=== PATIENT | male | born 1955 | race Two or more races ===

== ENCOUNTER 2019-03-12 10:20 | Outpatient (CLI) | payer MEDICARE ==
--- NOTE | 2019-03-12 12:32 | Ultrasound Report ---
Reason: CHRONIC BILATERAL LEG PAIN, EDEMA, OPEN WOUNDS, RL Procedure Date: 03/12/2019 Accession Number: [id number] / [id number] Procedure: US - Duplex Lwr Ext Arterial Bilat CPT Code: FULL RESULT: EXAM: Bilateral Lower Extremity Arterial Doppler Ultrasound EXAM DATE: 03/12/2019 11:14 AM. CLINICAL HISTORY: CHRONIC BILATERAL LEG PAIN, EDEMA, OPEN WOUNDS, RL. COMPARISON: None. TECHNIQUE: Real-time sonographic vascular imaging was performed by the aluminum boats assembler, utilizing color-flow, Doppler flow, and spectral analysis. Multiple premium service representative static images were saved for review. FINDINGS: The right common femoral artery, superficial femoral artery sampled at 3 stations, profunda femoris artery, popliteal artery, anterior tibial artery, posterior tibial artery and peroneal, as well as dorsalis pedis arteries, are all patent by color Doppler and demonstrate brisk systolic arterial upstroke on spectral duplex interrogation. The right lower extremity common femoral artery, profunda femoris artery as well as SFA sampled at 3 stations are all patent by color Doppler and demonstrate brisk arterial upstroke on spectral duplex. Below the knee, the popliteal artery, posterior tibial artery, peroneal artery and dorsalis pedis artery are all patent by color Doppler and demonstrate brisk systolic upstroke by spectral Doppler. The left anterior tibial artery is not seen. The following peak systolic velocities are obtained in centimeters per second. Right Leg: SECURITY ROVER: PSV 73.2 cm/sec. PSFA: PSV 97 cm/sec. MSFA: PSV 70 cm/sec. DSFA: PSV 53 cm/sec. PFA: PSV 64 cm/sec. POP: PSV 82 cm/sec. ISAI: PSV 65 cm/sec. SENIOR SECURITY ENGINEER: PSV 54 cm/sec. PER: PSV 81 cm/sec. DPA: PSV 50 cm/sec. Left Leg: SECURITY ROVER: PSV 98 cm/sec. PSFA: PSV 99 cm/sec. MSFA: PSV 80 cm/sec. DSFA: PSV 56 cm/sec. PFA: PSV 77 cm/sec. POP: PSV 61 cm/sec. ISAI: Not seen. SENIOR SECURITY ENGINEER: PSV 56 cm/sec. PER: PSV 68 cm/sec. DPA: PSV 40 cm/sec. Superficial soft tissue edema right greater than left. IMPRESSION: Nonvisualization of the left anterior tibial artery. Otherwise, preserved arterial flow with good inflow and vascularity to the ankles bilaterally. Note is made of marked superficial soft tissue edema bilaterally, right greater than left. RADIA
== END 2019-03-12 10:21 | disposition home or self-care (01) ==
LOC: DI 10:20
PROVIDERS: ATTEND Family Medicine
DX: M79.605 Pain in left leg (principal); M79.604 Pain in right leg; G89.29 Other chronic pain; S81.801A Unspecified open wound, right lower leg, initial encounter; R60.0 Localized edema
CPT/HCPCS: 93925

== ENCOUNTER 2021-04-14 08:47 | Outpatient (CLI) | payer MEDICARE | END 2021-04-14 13:50 | disposition EMS.NT | LOC: EMS 08:47 | DX: Z03.89 Encounter for observation for other suspected diseases and conditions ruled out (principal) ==

== ENCOUNTER 2022-09-03 17:51 | Outpatient (CLI) | payer MEDICARE | END 2022-09-03 17:52 | disposition critical access hospital (66) | LOC: EMS 17:51 | DX: R53.1 Weakness (principal); R53.83 Other fatigue; R06.02 Shortness of breath; R10.9 Unspecified abdominal pain; R41.82 Altered mental status, unspecified | CPT/HCPCS: A0425; A0429 ==

== ENCOUNTER 2022-09-03 18:16 | Inpatient (IN) | payer MEDICARE ==
[2022-09-03 19:05] LABS: BASOPHILS # (AUTO) 0.1 10^3/uL (0.0-0.1); BASOPHILS % (AUTO) 0.6 %; EOSINOPHILS # (AUTO) 0.1 10^3/uL (0.0-0.7); EOSINOPHILS % (AUTO) 1.4 %; HCT - HEMATOCRIT 33.8 % (42.0-52.0); HGB - HEMOGLOBIN 11.3 g/dL (14.0-18.0); LYMPHOCYTES # (AUTO) 0.7 10^3/uL (1.5-3.5); LYMPHOCYTES % (AUTO) 7.7 %; MEAN CORPUSCULAR HEMOGLOBIN 30.7 pg (27.0-31.0); MEAN CORPUSCULAR HGB CONC 33.4 g/dL (32.0-36.0); MEAN CORPUSCULAR VOLUME 91.8 fL (80.0-94.0); MEAN PLATELET VOLUME 8.6 fL (7.4-11.4); MONOCYTES # (AUTO) 0.6 10^3/uL (0.0-1.0); MONOCYTES % (AUTO) 6.2 %; NEUTROPHILS % (AUTO) 83.6 %; PLT - PLATELET COUNT 433 10^3/uL (130-450); RED BLOOD COUNT 3.68 10^6/uL (4.70-6.10); RED CELL DISTRIBUTION WIDTH 13.5 % (12.0-15.0); WHITE BLOOD COUNT 9.5 x10^3/uL (4.8-10.8)
[2022-09-03 19:08] LABS: INR 1.3 (0.8-1.2); PT - PROTHROMBIN TIME 13.8 secs (9.9-12.6)
[2022-09-03 19:16] LABS: PARTIAL THROMBOPLASTIN TIME 34.6 secs (24.9-33.3)
[2022-09-03 19:17] LABS: ALBUMIN 2.2 g/dL (3.2-5.5); ALBUMIN/GLOBULIN RATIO 0.7 (1.0-2.2); BILIRUBIN,TOTAL 0.8 mg/dL (0.2-1.0); CALCIUM 7.9 mg/dL (8.5-10.3); CREATININE 0.6 mg/dL (0.6-1.2); POTASSIUM 4.2 mmol/L (3.5-5.0); TOTAL PROTEIN 5.4 g/dL (6.7-8.2)
[2022-09-03 19:18] LABS: LACTIC ACID, VENOUS 2.2 mmol/L (0.5-2.2)
--- NOTE | 2022-09-03 19:54 | XRAY Report ---
PROCEDURE: Chest 1 View X-Ray INDICATIONS: cough TECHNIQUE: One view of the chest was acquired. COMPARISON: Chest radiograph 07/20/2022 FINDINGS: Surgical changes and devices: None. Lungs and pleura: No pleural effusions or pneumothorax. Lungs are clear. Mediastinum: Cardiac silhouette is at the upper limits of normal in size. Mediastinal and hilar cont ours are similar to before. Bones and chest wall: No suspicious bony lesions. Overlying soft tissues appear unremarkable. IMPRESSION: No acute cardiopulmonary abnormality. Reviewed by: Chepe Hinds MD on 09/03/2022 7:53 PM PDT Approved by: Chepe Hinds MD on 09/03/2022 7:53 PM PDT Station ID: [id number]
[2022-09-03 19:55] LABS: B. PARAPERTUSSIS- RESP PCR PAN NOT DETECTED; B. PERTUSSIS- RESP PCR PANEL NOT DETECTED; C. PNEUMONIAE- RESP PCR PANEL NOT DETECTED; CORONAVIRUS 229E-RESP PCR NOT DETECTED; CORONAVIRUS HKU1-RESP PCR NOT DETECTED; CORONAVIRUS NL63-RESP PCR NOT DETECTED; CORONAVIRUS OC43-RESP PCR NOT DETECTED; HUMAN METAPNEUMOVIRUS NOT DETECTED; INFLUENZA A- RESP PCR PANEL NOT DETECTED; INFLUENZA B - RESP PCR PANEL NOT DETECTED; M. PNEUMONIAE- RESP PCR PANEL NOT DETECTED; PARAINFLUENZA VIRUS 1 NOT DETECTED; PARAINFLUENZA VIRUS 2 NOT DETECTED; PARAINFLUENZA VIRUS 3 NOT DETECTED; PARAINFLUENZA VIRUS 4 NOT DETECTED; RHINOVIRUS/ENTEROVIRUS NOT DETECTED; RSV- RESP PCR PANEL NOT DETECTED; SARS-CoV-2 -RESP PCR PANEL NOT DETECTED
[2022-09-03 19:59] LABS: GLUCOSE, URINE (UA) NEGATIVE (NEGATIVE); KETONES,URINE (UA) TRACE mg/dL (NEGATIVE); LEUKOCYTE ESTERASE, URINE TRACE (NEGATIVE); NITRITE,URINE POSITIVE (NEGATIVE); OCCULT BLOOD,URINE NEGATIVE (NEGATIVE); PROTEIN,URINE 30 mg/dL (NEGATIVE); UROBILINOGEN,URINE 0.2 (NORMAL) E.U./dL (NORMAL)
[2022-09-03 20:00] LABS: CLARITY,URINE HAZY (CLEAR)
[2022-09-03 20:09] LABS: BACTERIA,URINE Many /HPF (None Seen); BILIRUBIN,URINE NEGATIVE (NEGATIVE); CASTS, URINE 6-10 Hyaline Casts /LPF; ICTOTEST,URINE NEGATIVE; MUCUS,URINE Moderate Strands; RBC,URINE 0-5 /HPF (0-5); SQUAMOUS EPITHELIAL CELL,UR RARE Squamous (<= Few)
[2022-09-03 20:09] LABS: CALCIUM, IONIZED 1.02 mmol/L (1.15-1.33); VBG PH 7.419 (7.31-7.41)
[2022-09-03] MEDS ORDERED: cefTRIAXone 1 GM VIAL IVP STA (20:33)
[2022-09-03] MEDS ORDERED: SODIUM CHLORIDE 0.9% 1,000 ML IV STA ×3 (20:34→20:56)
--- NOTE | 2022-09-03 20:36 | ED Physician Documentation ---
History of Present Illness - Stated complaint Stated Complaint: DIFFICULTY BREATHING - Chief complaint Chief Complaint: Neuro - History obtained from History obtained from: Patient - History of Present Illness Timing: How many days ago Pain level max: 5 Pain level now: 4 - Additonal information Additional information: Patient is a 67-year-old male who presents to the emergency department with generalized weakness. He was recently admitted to the hospital here for several weeks and sent to a halfway. He reportedly left the halfway yesterday and has fallen 3-4 times at home today. Unable to get up by himself. He has been having increased weakness he states over the past several days. No new head injuries. No neck or back pain. He states that he was feeling better in the halfway but has declined over the past 24 hours. States unable to get up on his own. Patient is [place]-speaking and an agricultural research technician was used for the history and physical Review of Systems Ten Systems: 10 systems reviewed and negative Constitutional: denies: Fever, Chills Respiratory: denies: Cough GI: denies: Vomiting, Diarrhea Skin: denies: Rash Musculoskeletal: denies: Neck pain, Back pain Neurologic: denies: Headache PD PAST MEDICAL HISTORY - Past Medical History Cardiovascular: Hypertension, High cholesterol, Coronary artery disease, Other Respiratory: None Neuro: None Endocrine/Autoimmune: None GI: GERD, Hiatal hernia, Diverticulitis, Other : Retention HEENT: None Psych: None Musculoskeletal: Other Derm: None - Past Surgical History Past Surgical History: Yes General: Bowel surgery, Hiatal hernia repair Ortho: Knee replacement - Present Medications Home Medications: Ambulatory Orders Medication Instructions Recorded Confirmed Aspirin [Aspirin EC] 81 mg PO DAILY 10/21/14 07/11/22 Clopidogrel [Plavix] 75 mg PO DAILY 10/21/14 07/11/22 Diclofenac Sodium [Voltaren 2 gm TP Q6H PRN 07/04/22 07/11/22 Arthritis Pain] Famotidine [Pepcid] 40 mg PO BID 07/04/22 07/11/22 Acetaminophen [Tylenol] 325 mg PO Q4H PRN tablet 07/30/22 Atorvastatin [Lipitor] 10 mg PO QPM #0 07/30/22 07/11/22 Calcium Carbonate [Tums (Calcium 500 mg PO BID tablet 07/30/22 Carbonate 500mg)] Cholecalciferol [Vitamin D3] 50 mcg PO DAILY tablet 07/30/22 Finasteride [Proscar] 5 mg PO DAILY tablet 07/30/22 Folic Acid 1 mg PO DAILY #0 07/30/22 07/11/22 Ibuprofen [Motrin] 600 mg PO Q6HR PRN tablet 07/30/22 Loperamide [Imodium] 2 mg PO QID PRN 07/30/22 Midodrine [ProAmatine] 5 mg PO TID tablet 07/30/22 Multivitamin [Theragran] 1 tab PO DAILYWM tablet 07/30/22 Ranolazine [Ranexa] 500 mg PO DAILY #0 07/30/22 07/11/22 Zinc Oxide 20% Oint [Zinc Oxide] 1 applic TOP PRN PRN 07/30/22 diltiaZEM CD [Cardizem Cd] 120 mg PO DAILY 07/30/22 oxyCODONE [Roxicodone] 10 mg PO Q4H #30 tablet 07/30/22 traZODone [Desyrel] 25 mg PO QPM tablet 07/30/22 - Allergies Allergies/Adverse Reactions: Allergies Allergy/AdvReac Type Severity Reaction Status Date / Time acetaminophen [From Vicodin] AdvReac Unknown Verified 09/03/22 18:19 hydrocodone bitartrate * AdvReac Unknown Verified 09/03/22 18:19 [From Vicodin] iron AdvReac Unknown Verified 09/03/22 18:19 - Social History Does the pt smoke?: No Smoking Status: Never smoker Does the pt drink ETOH?: No Does the pt have substance abuse?: No - Immunizations Immunizations are current?: Yes - POLST Patient has POLST: No PD ED PE NORMAL - Vitals Vital signs reviewed: Yes - General General: No acute distress, Other (Patient is cool to the touch. Drowsy but arousable.) - HEENT HEENT: PERRL, Pharynx benign, Other (dry lips and tongue) - Neck Neck: Supple, no meningeal sign - Cardiac Cardiac: RRR - Respiratory Respiratory: No respiratory distress, Clear bilaterally - Abdomen Abdomen: Soft, Non tender, Non distended - Derm Derm: Warm and dry - Extremities Extremities: Other (Has a pressure ulcer to the left heel. Also has multiple wounds to the bilateral lower extremity. Do not appear actively infected at this time) - Neuro Neuro: card runner 2-12 intact, No motor deficit, No sensory deficit, Normal speech Eye Opening: Spontaneous Motor: Obeys Commands Verbal: Oriented GCS Score: 15 - Psych Psych: Normal mood, Normal affect Results - Vitals Vitals: Vital Signs - 24 hr 09/03/22 09/03/22 09/03/22 18:20 18:53 19:23 Temperature 36.9 C Heart Rate 95 96 97 Respiratory 20 16 16 Rate Blood Pressure 111/89 H 106/74 101/74 O2 Saturation 100 94 99 09/03/22 09/03/22 09/03/22 20:00 20:30 20:55 Temperature Heart Rate 90 83 85 Respiratory 15 17 16 Rate Blood Pressure 93/78 79/61 L 104/75 O2 Saturation 98 99 99 09/03/22 09/03/22 09/03/22 21:21 21:30 22:08 Temperature Heart Rate 96 94 95 Respiratory 18 16 15 Rate Blood Pressure 106/79 96/76 103/81 H O2 Saturation 100 100 Oxygen O2 Source Room air - EKG (time done) 1839 Rate: Rate (enter#) (80) Rhythm: Atrial fibrillation [place]: Normal Ischemia: Other (obscured by artifact) - Labs Labs: Laboratory Tests 09/03/22 09/03/22 09/03/22 18:44 18:55 18:55 WBC 9.5 RBC 3.68 L Hgb 11.3 L Hct 33.8 L MCV 91.8 MCH 30.7 MCHC 33.4 RDW 13.5 Plt Count 433 MPV 8.6 Neut # (Auto) 8.0 H Lymph # (Auto) 0.7 L Grady # (Auto) 0.6 Eos # (Auto) 0.1 Baso # (Auto) 0.1 Absolute Nucleated RBC 0.00 Nucleated RBC % 0.0 PT 13.8 H INR 1.3 H APTT 34.6 H VBG pH Ionized Calcium Sodium Potassium Chloride Carbon Dioxide Anion Gap BUN Creatinine Estimated GFR (MDRD) Glucose Lactic Acid Calcium Total Bilirubin AST ALT Alkaline Phosphatase Troponin I High Sens Total Protein Albumin Globulin Albumin/Globulin Ratio Lipase Procalcitonin Urine Color Urine Clarity Urine pH Ur Specific Golden Urine Protein Urine Glucose (UA) Urine Ketones Urine Occult Blood Urine Nitrite Urine Bilirubin Urine Urobilinogen Ur Leukocyte Esterase Urine RBC Urine WBC Ur Squamous Epith Cells Urine Bacteria Urine Casts Urine Mucus Ur Microscopic Review Urine Culture Comments Nasal Adenovirus (PCR) NOT DETECTED Nasal B. parapertussis DNA (PCR) NOT DETECTED Nasal Coronavir 229E PCR NOT DETECTED Nasal Coronavir HKU1 PCR NOT DETECTED Nasal Coronavir NL63 PCR NOT DETECTED Nasal Coronavir OC43 PCR NOT DETECTED Nasal Enterovir/Rhinovir PCR NOT DETECTED Nasal Influenza B PCR NOT DETECTED Nasal Influenza A PCR NOT DETECTED Nasal Parainfluen 1 PCR NOT DETECTED Nasal Parainfluen 2 PCR NOT DETECTED Nasal Parainfluen 3 PCR NOT DETECTED Nasal Parainfluen 4 PCR NOT DETECTED Nasal RSV (PCR) NOT DETECTED Nasal B.pertussis DNA PCR NOT DETECTED Nasal C.pneumoniae (PCR) NOT DETECTED Miky Human Metapneumo PCR NOT DETECTED Nasal M.pneumoniae (PCR) NOT DETECTED Nasal SARS-CoV-2 (PCR) NOT DETECTED 09/03/22 09/03/22 09/03/22 18:55 18:55 18:55 WBC RBC Hgb Hct MCV MCH MCHC RDW Plt Count MPV Neut # (Auto) Lymph # (Auto) Grady # (Auto) Eos # (Auto) Baso # (Auto) Absolute Nucleated RBC Nucleated RBC % PT INR APTT VBG pH Ionized Calcium Sodium 128 L Potassium 4.2 Chloride 95 L Carbon Dioxide 24 Anion Gap 9.0 BUN 9 Creatinine 0.6 Estimated GFR (MDRD) 134 Glucose 94 Lactic Acid 2.2 Calcium 7.9 L Total Bilirubin 0.8 AST 17 ALT 14 Alkaline Phosphatase 94 Troponin I High Sens Total Protein 5.4 L Albumin 2.2 L Globulin 3.2 Albumin/Globulin Ratio 0.7 L Lipase 20 L Procalcitonin < 0.05 Urine Color Urine Clarity Urine pH Ur Specific Golden Urine Protein Urine Glucose (UA) Urine Ketones Urine Occult Blood Urine Nitrite Urine Bilirubin Urine Urobilinogen Ur Leukocyte Esterase Urine RBC Urine WBC Ur Squamous Epith Cells Urine Bacteria Urine Casts Urine Mucus Ur Microscopic Review Urine Culture Comments Nasal Adenovirus (PCR) Nasal B. parapertussis DNA (PCR) Nasal Coronavir 229E PCR Nasal Coronavir HKU1 PCR Nasal Coronavir NL63 PCR Nasal Coronavir OC43 PCR Nasal Enterovir/Rhinovir PCR Nasal Influenza B PCR Nasal Influenza A PCR Nasal Parainfluen 1 PCR Nasal Parainfluen 2 PCR Nasal Parainfluen 3 PCR Nasal Parainfluen 4 PCR Nasal RSV (PCR) Nasal B.pertussis DNA PCR Nasal C.pneumoniae (PCR) Miky Human Metapneumo PCR Nasal M.pneumoniae (PCR) Nasal SARS-CoV-2 (PCR) 09/03/22 09/03/22 09/03/22 18:55 19:25 19:58 WBC RBC Hgb Hct MCV MCH MCHC RDW Plt Count MPV Neut # (Auto) Lymph # (Auto) Grady # (Auto) Eos # (Auto) Baso # (Auto) Absolute Nucleated RBC Nucleated RBC % PT INR APTT VBG pH 7.419 H Ionized Calcium 1.02 L Sodium Potassium Chloride Carbon Dioxide Anion Gap BUN Creatinine Estimated GFR (MDRD) Glucose Lactic Acid Calcium Total Bilirubin AST ALT Alkaline Phosphatase Troponin I High Sens 5.9 Total Protein Albumin Globulin Albumin/Globulin Ratio Lipase Procalcitonin Urine Color YELLOW Urine Clarity HAZY Urine pH 6.0 Ur Specific Golden 1.025 Urine Protein 30 H Urine Glucose (UA) NEGATIVE Urine Ketones TRACE Urine Occult Blood NEGATIVE Urine Nitrite POSITIVE H Urine Bilirubin NEGATIVE Urine Urobilinogen 0.2 (NORMAL) Ur Leukocyte Esterase TRACE H Urine RBC 0-5 Urine WBC 11-25 H Ur Squamous Epith Cells RARE Squamous Urine Bacteria Many H Urine Casts 6-10 Hyaline Casts Urine Mucus Moderate Strands Ur Microscopic Review INDICATED Urine Culture Comments INDICATED Nasal Adenovirus (PCR) Nasal B. parapertussis DNA (PCR) Nasal Coronavir 229E PCR Nasal Coronavir HKU1 PCR Nasal Coronavir NL63 PCR Nasal Coronavir OC43 PCR Nasal Enterovir/Rhinovir PCR Nasal Influenza B PCR Nasal Influenza A PCR Nasal Parainfluen 1 PCR Nasal Parainfluen 2 PCR Nasal Parainfluen 3 PCR Nasal Parainfluen 4 PCR Nasal RSV (PCR) Nasal B.pertussis DNA PCR Nasal C.pneumoniae (PCR) Miky Human Metapneumo PCR Nasal M.pneumoniae (PCR) Nasal SARS-CoV-2 (PCR) - Rads (name of study) Chest x-ray Radiology: Final report received, EMP read contemporaneously, See rad report (No acute abnormality) head Ct Radiology: Final report received, EMP read contemporaneously, See rad report (No acute abnormality) PD MEDICAL DECISION MAKING - ED course Complexity details: reviewed old records, reviewed results, re-evaluated patient, considered differential, d/w patient, d/w mining consultant ED course: Patient is a 67-year-old male who presents to the emergency department with increasing weakness at home. This appears to be a fairly acute onset per the patient. He is feeling generally unwell today. He was very chilled when he arrived in the emergency department. He does have a UTI. Also has new hyponatremia, no sodium in the past has been below 130. He also has worsening hypocalcemia, ionized calcium is down to 1.02. We will place him on antibiotics, IV fluids, replace his calcium and place him in observation. Discussed the case with the hospitalist. Hospitalist requested a head CT, this is negative. Also requested troponin. This is negative as well. Will reconsult the hospitalist. Departure - Departure Disposition: 65 [facility] DC/Xfer Clinical Impression: Weakness, Hypocalcemia, Acute hyponatremia UTI (urinary tract infection) Qualifiers: Urinary tract infection type: acute cystitis Hematuria presence: without hematuria Qualified Code(s): N30.00 - Acute cystitis without hematuria Hypotension Qualifiers: Hypotension type: unspecified hypotension type Qualified Code(s): I95.9 - Hypotension, unspecified Pressure ulcer of left heel Qualifiers: Pressure injury stage: unstageable Qualified Code(s): L89.620 - Pressure ulcer of left heel, unstageable Condition: Stable
--- NOTE | 2022-09-03 21:28 | CT Report ---
PROCEDURE: HEAD WO INDICATIONS: fall, head injury TECHNIQUE: Noncontrast 4.5 mm thick angled axial sections acquired from the foramen magnum to the vertex. For r adiation dose reduction, the following was used: automated exposure control, adjustment of mA and/or kV according to patient size. COMPARISON: 07/08/2022. FINDINGS: Image quality: Excellent. CSF spaces: There is mild cerebral volume loss with prominence of the ventricles and sulci. Basal ci sterns are patent. No extra-axial fluid collections. Brain: No intracranial hemorrhage, mass, or mass effect. House-white matter interface is preserved. T here are subcortical and periventricular white matter hypodensities consistent with mild chronic smal l vessel ischemic changes. Skull and face: Calvarium and visualized facial bones are intact, without suspicious lesions. Sinuses: Visualized sinuses and mastoids are clear. IMPRESSION: 1. No acute intracranial abnormality. Reviewed by: Rad Linder MD on 09/03/2022 9:26 PM PDT Approved by: Rad Linder MD on 09/03/2022 9:26 PM PDT Station ID: [id number]
--- NOTE | 2022-09-03 22:00 | HISTORY & PHYSICAL EXAMINATION ---
Chief Complaint - Chief Complaint Chief Complaint: weakness History of Present Illness - Admitted From Admitted From:: home - History of Present Illness HPI Comment/Other: 67 y/o M presented with falls and generalized weakness. Pt left the rehab facility yesterday after recent hospitlization for infected leg wounds. Subsequently he was feeling weak and had mechanical falls without LOC or head trauma. he denies cp, sob, palpitation or n/v/d/abd pain History - Past Medical History Cardiovascular: reports: Hypertension, High cholesterol, Coronary artery disease, Atrial fibrillation (bilateral leg wounds, ), Other Respiratory: reports: None Neuro: reports: None Endocrine/Autoimmune: reports: None GI: reports: None (rell), GERD, Hiatal hernia, Diverticulitis, Other : reports: Retention HEENT: reports: None Psych: reports: None Musculoskeletal: reports: Other Derm: reports: None MRSA Hx?: No - Past Surgical History General: reports: Bowel surgery, Hiatal hernia repair Ortho: reports: Knee replacement - Family & Social History Family History Comment/Other: Unknown, per pt. Living Situation: With spouse/s.o. Social History Notes: He does not drive, says he requires an electric wheelchair at home. He has never smoked and drinks no alcohol. - POLST Patient has POLST: No Meds/Allgy - Home Medications Home Medications: Ambulatory Orders Medication Instructions Recorded Confirmed Aspirin [Aspirin EC] 81 mg PO DAILY 10/21/14 07/11/22 Clopidogrel [Plavix] 75 mg PO DAILY 10/21/14 07/11/22 Diclofenac Sodium [Voltaren 2 gm TP Q6H PRN 07/04/22 07/11/22 Arthritis Pain] Famotidine [Pepcid] 40 mg PO BID 07/04/22 07/11/22 Acetaminophen [Tylenol] 325 mg PO Q4H PRN tablet 07/30/22 Atorvastatin [Lipitor] 10 mg PO QPM #0 07/30/22 07/11/22 Calcium Carbonate [Tums (Calcium 500 mg PO BID tablet 07/30/22 Carbonate 500mg)] Cholecalciferol [Vitamin D3] 50 mcg PO DAILY tablet 07/30/22 Finasteride [Proscar] 5 mg PO DAILY tablet 07/30/22 Folic Acid 1 mg PO DAILY #0 07/30/22 07/11/22 Ibuprofen [Motrin] 600 mg PO Q6HR PRN tablet 07/30/22 Loperamide [Imodium] 2 mg PO QID PRN 07/30/22 Midodrine [ProAmatine] 5 mg PO TID tablet 07/30/22 Multivitamin [Theragran] 1 tab PO DAILYWM tablet 07/30/22 Ranolazine [Ranexa] 500 mg PO DAILY #0 07/30/22 07/11/22 Zinc Oxide 20% Oint [Zinc Oxide] 1 applic TOP PRN PRN 07/30/22 diltiaZEM CD [Cardizem Cd] 120 mg PO DAILY 07/30/22 oxyCODONE [Roxicodone] 10 mg PO Q4H #30 tablet 07/30/22 traZODone [Desyrel] 25 mg PO QPM tablet 07/30/22 - Allergies Allergies/Adverse Reactions: Allergies Allergy/AdvReac Type Severity Reaction Status Date / Time acetaminophen [From Vicodin] AdvReac Unknown Verified 09/03/22 18:19 hydrocodone bitartrate * AdvReac Unknown Verified 09/03/22 18:19 [From Vicodin] iron AdvReac Unknown Verified 09/03/22 18:19 Review of Systems - Constitutional Constitutional: reports: Fatigue - Cardiovascular Cariovascular: reports: Irregular heart rate - Integumentary Integumentary: reports: Other (bilateral foot wounds) Exam - Vital Signs Vital Signs: Vital Signs x48h Temp Pulse Resp BP Pulse Ox 09/03/22 21:30 94 16 96/76 100 09/03/22 21:21 96 18 106/79 09/03/22 20:55 85 16 104/75 99 09/03/22 20:30 83 17 79/61 L 99 09/03/22 20:00 90 15 93/78 98 09/03/22 19:23 97 16 101/74 99 09/03/22 18:53 96 16 106/74 94 09/03/22 18:20 36.9 C 95 20 111/89 H 100 - Physical Exam General Appearance: positive: No acute distress Eyes Bilateral: positive: Normal inspection ENT: positive: ENT inspection nml Neck: positive: Nml inspection Respiratory: positive: No respiratory distress Cardiovascular: positive: Irregularly irregular Abdomen: positive: Non-tender Extremities: positive: Non-tender (healing wounds on bilateral feet no pus) Conclusion/Plan - Lab Results Lab results reviewed: Yes Fish Bones: 09/03/22 18:55 09/03/22 18:55 - Diagnostic Imaging Results Diagnostic Imaging Results Comments: head CT non acute - EKG Results EKG Findings: afib - Other Other Results/Comments: 67 y/o M #weakness and falls: could be due to hypertension and decommissioning: fall precautions and ivf and pT/OT, echo, orthostatic BPs #sepsis: ivf, antibiotics, recheck lactate #afib continue home meds, tele # hypoatremia 0.9 NS IVF, recheck #hypocalcemia: s/p replacement, recheck # leg wounds wound care # DVT PPX: SQ heparin #DNR: discussed in detail with official laboratory chemical assistant pt is adamant
[2022-09-03] MEDS ORDERED: SODIUM CHLORIDE FLUSH 0.9% 10 ML SYRINGE IVP PRN (22:14)
[2022-09-03] MEDS ORDERED: ATORVASTATIN 40 MG TABLET PO STA (22:29)
[2022-09-03] MEDS: SODIUM CHLORIDE 0.9% 1,000 ML IV SCH (22:53)
[2022-09-03] MEDS ORDERED: PIPERACILLIN/TAZOBACTAM 3.375 GM in SODIUM CHLORIDE 0.9% MINIBAG 100 ML IV SCH (23:00)
[2022-09-04] MEDS ORDERED: VANCOMYCIN INJ 1.5 GM in SODIUM CHLORIDE 0.9% 500 ML IV SCH (02:00)
[2022-09-04] MEDS: SODIUM CHLORIDE FLUSH 0.9% 10 ML SYRINGE IVP SCH ×3 (02:03→17:18)
[2022-09-04] MEDS ORDERED: PIPERACILLIN/TAZOBACTAM 3.375 GM in SODIUM CHLORIDE 0.9% 100ML 100 ML IV SCH (04:00)
[2022-09-04 07:21] LABS: CALCIUM 7.4 mg/dL (8.5-10.3); CREATININE 0.5 mg/dL (0.6-1.2); POTASSIUM 3.8 mmol/L (3.5-5.0)
[2022-09-04] MEDS: MIDODRINE 2.5 MG TABLET PO SCH ×3 (07:23→21:22)
[2022-09-04 07:26] LABS: BASOPHILS # (AUTO) 0.1 10^3/uL (0.0-0.1); BASOPHILS % (AUTO) 0.7 %; EOSINOPHILS # (AUTO) 0.2 10^3/uL (0.0-0.7); EOSINOPHILS % (AUTO) 2.2 %; HCT - HEMATOCRIT 31.4 % (42.0-52.0); HGB - HEMOGLOBIN 10.3 g/dL (14.0-18.0); LYMPHOCYTES # (AUTO) 0.9 10^3/uL (1.5-3.5); LYMPHOCYTES % (AUTO) 8.8 %; MEAN CORPUSCULAR HEMOGLOBIN 30.8 pg (27.0-31.0); MEAN CORPUSCULAR HGB CONC 32.8 g/dL (32.0-36.0); MEAN PLATELET VOLUME 8.5 fL (7.4-11.4); MONOCYTES % (AUTO) 9.6 %; NEUTROPHILS # (AUTO) 8.4 10^3/uL (1.5-6.6); NEUTROPHILS % (AUTO) 78.2 %; PLT - PLATELET COUNT 370 10^3/uL (130-450); RED BLOOD COUNT 3.34 10^6/uL (4.70-6.10); RED CELL DISTRIBUTION WIDTH 13.8 % (12.0-15.0); WHITE BLOOD COUNT 10.7 x10^3/uL (4.8-10.8)
[2022-09-04] MEDS: FAMOTIDINE 20 MG TABLET PO SCH ×3 (08:45→21:23)
[2022-09-04] MEDS: FINASTERIDE 5 MG TABLET PO SCH (08:45)
[2022-09-04] MEDS: HEPARIN 5,000 UNIT/ML VIAL SUBQ SCH ×2 (08:45→21:23)
[2022-09-04] MEDS ORDERED: ASPIRIN 325 MG TABLET PO SCH (09:00)
[2022-09-04] MEDS ORDERED: CALCIUM CARBONATE CHEW 500 MG TABLET PO SCH (09:00)
--- NOTE | 2022-09-04 10:00 | PHARMACY PROGRESS NOTE ---
- Best Possible Medication History Admit Date and Time: 09/03/222213 Processed by: Pharmacy Medication History completed: Yes Patient Interview: Pt unable to participate Secondary Source(s): Physician records, Pharmacy records, Insurance records, Previous admit records As the person ultimately responsible for medication therapy, providers are able to order a medication from an existing home medication list in [facility] via the "Reconcile Routine" prior to Confirmation of that medication by account support specialist. Such practice is discouraged except when the physician, in their clinical judgment, deems that a medical need exists for a medication without regard to previous use.
[2022-09-04] MEDS: cefTRIAXone 1 GM in SODIUM CHLORIDE 0.9% MINIBAG 100 ML IV SCH (10:16)
[2022-09-04] MEDS: SODIUM CHLORIDE 0.9% 1,000 ML IV SCH (10:16)
--- NOTE | 2022-09-04 12:39 | PROVIDER PROGRESS NOTE ---
Assessment/Plan - Problem List (1) Weakness Assessment/Plan: He was only home 1 day from the SNF in [place] and apparently "worsened quickly". Our Physical Therapist, Amairani, was able to communicate in Tajik with him directly today and learned that he slid out of his recliner at home once, not 3 times, and the could not pick him up, therefore she called 911. He was evaluated by PT today and recommendation is for a SNF, and he told the PT that he would agree to this, but not the one in [place], because they had limited Tajik speakers and communication was very suboptimal, he said. Also, after he was discharged from here in late July to that [place] SNF (where he stayed for over a month), we here had understood he would be going to a long- term care facility in [place], close to where his children live. He said this was also not the case, in fact he thought he might go to live with [facility] of his [facility], but when it came time for this, the son said he could not take care of the pt, so he was discharged to his home yesterday. PT Amairani also learned that he would never agree to live in a long-term care facility, he wants to live at home. PT told him today that he will need to have caregivers therefore. Will monitor orthostatic VS, but he can only do supine to sitting, since he has no "energy" to stand. We will resume his midodrine 3 times daily with meals. Will continue with IV fluids while treating his infection Will use PT and OT evaluations for DCh planning, communicate with SW. An Echo was ordered by the admitting telemedicine doctor last night. 2) UTI Assessment/Plan: We will cancel the empiric iv vancomycin and cefepime. We will continue iv ceftriaxone. Await urine culture and blood culture results. 3) Afib Assessment/Plan: Will continue home meds, continue telemetry 4) Hypnoatremia Assessment/Plan: Continue with0.9 NS IVF Follow BMP daily 5) Hypocalcemia Assessment/Plan: Will replace and recheck 6) Leg wounds Assessment/Plan: He has wounds of both shins and both heels. A wound care consult ordered and I spoke to Christin Muñoz myself. 7) Sepsis Assessment/Plan: This was ruled out with a normal WBC, normal Lactic Acid level, no tachycardia. Therefore he did not meet criteria for Inpatient status and was transferred to Observation status today; the Code 44 paperwork was completed. - Current Meds Current Meds: Current Medications Generic Name Dose Route Start Last Admin Trade Name Benjamin PRN Reason Stop Dose Admin Aspirin 325 mg 09/04/22 09:00 09/04/22 08:45 Aspirin 325 Mg Tablet PO 325 mg DAILY ELIECER Administration Calcium Carbonate/Glycine 500 mg 09/04/22 09:00 09/04/22 08:45 Calcium Carbonate Chew 500 Mg Tablet PO 500 mg DAILY ELIECER Administration Famotidine 20 mg 09/04/22 09:00 09/04/22 08:45 Famotidine 20 Mg Tablet PO 20 mg BID ELIECER Administration Finasteride 5 mg 09/04/22 09:00 09/04/22 08:45 Finasteride 5 Mg Tablet PO 5 mg DAILY ELIECER Administration Heparin Sodium (Porcine) 5,000 unit 09/04/22 09:00 09/04/22 08:45 Heparin 5,000 Unit/Ml Vial SUBQ 5,000 unit BID ELIECER Administration Sodium Chloride 1,000 mls @ 100 mls/hr 09/03/22 23:00 09/04/22 10:16 Normal Saline 0.9% IV 100 mls/hr .Q10H ELIECER Administration Ceftriaxone Sodium 1 gm/ 100 mls @ 200 mls/hr 09/04/22 10:30 09/04/22 11:03 Sodium Chloride IV Infused DAILY ELIECER Infusion Midodrine 5 mg 09/04/22 06:00 09/04/22 07:23 Midodrine 2.5 Mg Tablet PO 5 mg TID ELIECER Administration Sodium Chloride 10 ml 09/04/22 01:00 09/04/22 02:03 Sodium Chloride Flush 0.9% 10 Ml Syringe IVP Not Given 0100,0900,1700 ELIECER - Lab Result Fish Bone Diagrams: 09/04/22 07:06 09/04/22 07:06 - Additional Planning My Orders: My Active Orders 09/04/22 Wound Consult MAC [MAC] Routine 09/04/22 10:30 [email or web address] [Rocephin] 1 gm Sodium Chloride 0.9% Minibag [Normal Saline 0.9% Minibag] 100 ml IV DAILY 09/04/22 11:14 Daily Weight [RC] 0600 09/04/22 Lunch Soft Mechanical Diet [DIET] Subjective - Subjective Patient Reports: Other (Sleepy and feels weak) Objective Vital Signs: Vital Signs - 24 hr 09/03/22 09/03/22 09/03/22 18:20 18:53 19:23 Temperature 36.9 C Heart Rate 95 96 97 Heart Rate [ Monitoring electrodes] Heart Rate [ Sitting] Heart Rate [ Standing] Heart Rate [ Supine] Respiratory 20 16 16 Rate Blood Pressure 111/89 H 106/74 101/74 Blood Pressure [Left Brachial artery] Blood Pressure [Right Brachial artery] Blood Pressure [Sitting] Blood Pressure [Standing] Blood Pressure [Supine] O2 Saturation 100 94 99 O2 Saturation [ Supine] O2 Saturation [ Without Activity] 09/03/22 09/03/22 09/03/22 20:00 20:30 20:55 Temperature Heart Rate 90 83 85 Heart Rate [ Monitoring electrodes] Heart Rate [ Sitting] Heart Rate [ Standing] Heart Rate [ Supine] Respiratory 15 17 16 Rate Blood Pressure 93/78 79/61 L 104/75 Blood Pressure [Left Brachial artery] Blood Pressure [Right Brachial artery] Blood Pressure [Sitting] Blood Pressure [Standing] Blood Pressure [Supine] O2 Saturation 98 99 99 O2 Saturation [ Supine] O2 Saturation [ Without Activity] 09/03/22 09/03/22 09/03/22 21:21 21:30 22:08 Temperature Heart Rate 96 94 95 Heart Rate [ Monitoring electrodes] Heart Rate [ Sitting] Heart Rate [ Standing] Heart Rate [ Supine] Respiratory 18 16 15 Rate Blood Pressure 106/79 96/76 103/81 H Blood Pressure [Left Brachial artery] Blood Pressure [Right Brachial artery] Blood Pressure [Sitting] Blood Pressure [Standing] Blood Pressure [Supine] O2 Saturation 100 100 O2 Saturation [ Supine] O2 Saturation [ Without Activity] 09/03/22 09/04/22 09/04/22 22:48 07:34 10:48 Temperature 36.4 C L 37 C Heart Rate Heart Rate [ 97 82 Monitoring electrodes] Heart Rate [ 94 Sitting] Heart Rate [ 90 Standing] Heart Rate [ 69 Supine] Respiratory 16 18 Rate Blood Pressure Blood Pressure 112/63 [Left Brachial artery] Blood Pressure 94/64 [Right Brachial artery] Blood Pressure 106/76 [Sitting] Blood Pressure 107/66 [Standing] Blood Pressure 100/65 [Supine] O2 Saturation 100 95 O2 Saturation [ 95 Supine] O2 Saturation [ Without Activity] 09/04/22 11:00 Temperature Heart Rate Heart Rate [ Monitoring electrodes] Heart Rate [ 94 Sitting] Heart Rate [ 90 Standing] Heart Rate [ 65 Supine] Respiratory Rate Blood Pressure Blood Pressure [Left Brachial artery] Blood Pressure [Right Brachial artery] Blood Pressure 106/76 [Sitting] Blood Pressure 107/66 [Standing] Blood Pressure 100/65 [Supine] O2 Saturation O2 Saturation [ Supine] O2 Saturation [ 93 Without Activity] Oxygen O2 Source [Without Activity] Room air O2 Source Room air I&O (Last 24 Hrs): Intake and Output Totals x24h 09/02/22 09/03/22 09/04/22 23:59 23:59 23:59 Intake Total 1999 1300 Output Total 50 825 Balance 1950 475 General: Alert, Other (Thin elderly male) HEENT: Mucous membr. moist/pink Neck: Supple Neuro: Alert, Non Focal Cardiovascular: Other (Irreg irreg) Respiratory: No respiratory distress, Breath sounds nml Abdomen: Soft Extremities: No edema, Other (Bandages on shins and heels) - Results Results: Laboratory Results WBC 10.7 x10^3/uL (4.8-10.8) 09/04/22 07:06 RBC 3.34 10^6/uL (4.70-6.10) L 09/04/22 07:06 Hgb 10.3 g/dL (14.0-18.0) L 09/04/22 07:06 Hct 31.4 % (42.0-52.0) L 09/04/22 07:06 MCV 94.0 fL (80.0-94.0) 09/04/22 07:06 MCH 30.8 pg (27.0-31.0) 09/04/22 07:06 MCHC 32.8 g/dL (32.0-36.0) 09/04/22 07:06 RDW 13.8 % (12.0-15.0) 09/04/22 07:06 Plt Count 370 10^3/uL (130-450) 09/04/22 07:06 MPV 8.5 fL (7.4-11.4) 09/04/22 07:06 Neut # (Auto) 8.4 10^3/uL (1.5-6.6) H 09/04/22 07:06 Lymph # (Auto) 0.9 10^3/uL (1.5-3.5) L 09/04/22 07:06 [place] # (Auto) 1.0 10^3/uL (0.0-1.0) 09/04/22 07:06 Eos # (Auto) 0.2 10^3/uL (0.0-0.7) 09/04/22 07:06 Baso # (Auto) 0.1 10^3/uL (0.0-0.1) 09/04/22 07:06 Absolute Nucleated RBC 0.00 x10^3/uL 09/04/22 07:06 Nucleated RBC % 0.0 /100WBC 09/04/22 07:06 PT 13.8 secs (9.9-12.6) H 09/03/22 18:55 INR 1.3 (0.8-1.2) H 09/03/22 18:55 APTT 34.6 secs (24.9-33.3) H 09/03/22 18:55 VBG pH 7.419 (7.31-7.41) H 09/03/22 19:58 Ionized Calcium 1.02 mmol/L (1.15-1.33) L 09/03/22 19:58 Sodium 132 mmol/L (135-145) L 09/04/22 07:06 Potassium 3.8 mmol/L (3.5-5.0) 09/04/22 07:06 Chloride 101 mmol/L (101-111) 09/04/22 07:06 Carbon Dioxide 25 mmol/L (21-32) 09/04/22 07:06 Anion Gap 6.0 (6-13) 09/04/22 07:06 BUN 8 mg/dL (6-20) 09/04/22 07:06 Creatinine 0.5 mg/dL (0.6-1.2) L 09/04/22 07:06 Estimated GFR (MDRD) 165 (>89) 09/04/22 07:06 Glucose 72 mg/dL (70-100) 09/04/22 07:06 Lactic Acid 0.9 mmol/L (0.5-2.2) 09/04/22 05:50 Calcium 7.4 mg/dL (8.5-10.3) L 09/04/22 07:06 Total Bilirubin 0.8 mg/dL (0.2-1.0) 09/03/22 18:55 AST 17 IU/L (10-42) 09/03/22 18:55 ALT 14 IU/L (10-60) 09/03/22 18:55 Alkaline Phosphatase 94 IU/L (42-121) 09/03/22 18:55 Troponin I High Sens 5.9 ng/L (2.3-19.7) 09/03/22 18:55 Total Protein 5.4 g/dL (6.7-8.2) L 09/03/22 18:55 Albumin 2.2 g/dL (3.2-5.5) L 09/03/22 18:55 Globulin 3.2 g/dL (2.1-4.2) 09/03/22 18:55 Albumin/Globulin Ratio 0.7 (1.0-2.2) L 09/03/22 18:55 Lipase 20 U/L (22-51) L 09/03/22 18:55 Procalcitonin < 0.05 ng/mL (<0.5) 09/03/22 18:55 Urine Color YELLOW 09/03/22 19:25 Urine Clarity HAZY (CLEAR) 09/03/22 19:25 Urine pH 6.0 PH (5.0-7.5) 09/03/22 19:25 Ur Specific [place] 1.025 (1.002-1.030) 09/03/22 19:25 Urine Protein 30 mg/dL (NEGATIVE) H 09/03/22 19:25 Urine Glucose (UA) NEGATIVE mg/dL (NEGATIVE) 09/03/22 19:25 Urine Ketones TRACE mg/dL (NEGATIVE) 09/03/22 19:25 Urine Occult Blood NEGATIVE (NEGATIVE) 09/03/22 19:25 Urine Nitrite POSITIVE (NEGATIVE) H 09/03/22 19:25 Urine Bilirubin NEGATIVE (NEGATIVE) 09/03/22 19:25 Urine Urobilinogen 0.2 (NORMAL) E.U./dL (NORMAL) 09/03/22 19:25 Ur Leukocyte Esterase TRACE (NEGATIVE) H 09/03/22 19:25 Urine RBC 0-5 /HPF (0-5) 09/03/22 19:25 Urine WBC 11-25 /HPF (0-3) H 09/03/22 19:25 Ur Squamous Epith Cells RARE Squamous (<= Few) 09/03/22 19:25 Urine Bacteria Many /HPF (None Seen) H 09/03/22 19:25 Urine Casts 6-10 Hyaline Casts /LPF 09/03/22 19:25 Urine Mucus Moderate Strands 09/03/22 19:25 Ur Microscopic Review INDICATED 09/03/22 19:25 Urine Culture Comments INDICATED 09/03/22 19:25 Nasal Adenovirus (PCR) NOT DETECTED 09/03/22 18:44 Nasal B. parapertussis DNA (PCR) NOT DETECTED 09/03/22 18:44 Nasal Coronavir 229E PCR NOT DETECTED 09/03/22 18:44 Nasal Coronavir HKU1 PCR NOT DETECTED 09/03/22 18:44 Nasal Coronavir NL63 PCR NOT DETECTED 09/03/22 18:44 Nasal Coronavir OC43 PCR NOT DETECTED 09/03/22 18:44 Nasal Enterovir/Rhinovir PCR NOT DETECTED 09/03/22 18:44 Nasal Influenza B PCR NOT DETECTED 09/03/22 18:44 Nasal Influenza A PCR NOT DETECTED 09/03/22 18:44 Nasal Parainfluen 1 PCR NOT DETECTED 09/03/22 18:44 Nasal Parainfluen 2 PCR NOT DETECTED 09/03/22 18:44 Nasal Parainfluen 3 PCR NOT DETECTED 09/03/22 18:44 Nasal Parainfluen 4 PCR NOT DETECTED 09/03/22 18:44 Nasal RSV (PCR) NOT DETECTED 09/03/22 18:44 Nasal B.pertussis DNA PCR NOT DETECTED 09/03/22 18:44 Nasal C.pneumoniae (PCR) NOT DETECTED 09/03/22 18:44 Miky Human Metapneumo PCR NOT DETECTED 09/03/22 18:44 Nasal M.pneumoniae (PCR) NOT DETECTED 09/03/22 18:44 Nasal SARS-CoV-2 (PCR) NOT DETECTED 09/03/22 18:44 - Procedures Procedures: Procedures EXCISION OF L FOOT SUBCU/FASCIA, OPEN APPROACH (07/10/22) EXCISION OF R FOOT SUBCU/FASCIA, OPEN APPROACH (07/10/22) EXCISION OF R LOW LEG SUBCU/FASCIA, OPEN APPROACH (07/10/22)
[2022-09-04] MEDS ORDERED: VANCOMYCIN INJ 1 GM in SODIUM CHLORIDE 0.9% 250 ML IV SCH (14:00)
[2022-09-04] MEDS: oxyCODONE 5 MG TABLET PO PRN ×2 (14:58→21:23)
--- NOTE | 2022-09-04 15:01 | CT Report ---
PROCEDURE: Abdomen/Pelvis WO INDICATIONS: UTI previous bladder stranding, eval for pyelo TECHNIQUE: Noncontrast 5 mm thick sections acquired from the diaphragms to the symphysis. 5 mm coronal and sagi ttal reformats were then performed. For radiation dose reduction, the following was used: automated exposure control, adjustment of mA and/or kV according to patient size. COMPARISON: CT abdomen pelvis 07/20/2022 FINDINGS: Image quality: Excellent. ABDOMEN: Lung bases: Lung bases demonstrate mild effusion markedly decreased compared to exam. Heart size is normal. Solid organs: Liver and spleen are normal in size. Gallbladder is unremarkable Pancreas is normal in contours. No adrenal nodules. Kidneys are normal in size, without hydronephrosis or nephrolithia sis. Peritoneum and bowel: Unenhanced bowel loops demonstrate normal wall thickness and caliber. No free fluid or air. Colonic diverticular present. Nodes and vessels: No retroperitoneal or mesenteric adenopathy by size criteria. Aorta densities an eurysmal dilation within the infrarenal portion measuring 3.9 cm, unchanged. Miscellaneous: No ventral hernias. PELVIS: Genitourinary: Bladder is collapsed with a Prescott catheter. Miscellaneous: No inguinal hernias or adenopathy. Bones: No suspicious bony lesions. No vertebral body compression fractures. IMPRESSION: Bladder is collapsed with a Prescott catheter, limiting evaluation. Kidneys demonstrate no appreciable inflammatory change. However, evaluation for pyelonephritis is mar kedly limited given lack of contrast. Ultrasound may be helpful if clinical concern persists. Mild effusions decreased compared to prior exam. Reviewed by: Lisy Riddle MD on 09/04/2022 3:00 PM PDT Approved by: Lisy Riddle MD on 09/04/2022 3:00 PM PDT Station ID: [id number]
[2022-09-04] MEDS: traZODone 50 MG TABLET PO SCH (21:22)
[2022-09-04] MEDS: ATORVASTATIN 10 MG TABLET PO SCH (21:23)
[2022-09-04] MEDS: CALCIUM CARBONATE CHEW 500 MG TABLET PO SCH (21:23)
[2022-09-05] MEDS: SODIUM CHLORIDE FLUSH 0.9% 10 ML SYRINGE IVP SCH ×3 (00:02→16:59)
[2022-09-05] MEDS: SODIUM CHLORIDE 0.9% 1,000 ML IV SCH ×3 (00:02→11:48)
[2022-09-05] MEDS: oxyCODONE 5 MG TABLET PO PRN ×3 (06:50→18:07)
[2022-09-05] MEDS: MIDODRINE 2.5 MG TABLET PO SCH ×3 (06:50→21:00)
[2022-09-05] MEDS: FOLIC ACID 1 MG TABLET PO SCH (08:29)
[2022-09-05] MEDS: ASPIRIN EC 81 MG TABLET PO SCH (08:29)
[2022-09-05] MEDS: CHOLECALCIFEROL 25 MCG TABLET PO SCH (08:29)
[2022-09-05] MEDS: MULTIVITAMIN TABLET PO SCH (08:29)
[2022-09-05] MEDS: CLOPIDOGREL 75 MG TABLET PO SCH (08:29)
[2022-09-05] MEDS: FINASTERIDE 5 MG TABLET PO SCH (08:29)
[2022-09-05] MEDS: cefTRIAXone 1 GM in SODIUM CHLORIDE 0.9% MINIBAG 100 ML IV SCH (08:29)
[2022-09-05] MEDS: FAMOTIDINE 20 MG TABLET PO SCH ×2 (08:29→20:56)
[2022-09-05] MEDS: CALCIUM CARBONATE CHEW 500 MG TABLET PO SCH ×2 (08:29→20:57)
[2022-09-05] MEDS: METOPROLOL SUCCINATE 25 MG TABLET PO SCH ×2 (08:40→20:57)
[2022-09-05] MEDS: HEPARIN 5,000 UNIT/ML VIAL SUBQ SCH ×2 (08:42→20:58)
--- NOTE | 2022-09-05 08:42 | PROVIDER PROGRESS NOTE ---
Assessment/Plan - Problem List (1) Orthostatic hypotension Assessment/Plan: This patient presented after he slid out of his recliner chair at home due to severe weakness. He did not have syncope. Despite being in SNF recently for PT and OT rehab, he was very deconditioned, unable to stand after this fall at home, and his could not lift him. He was brought to the ER by ambulance and placed in Observation yesterday, due to "soft" BP. He has been receiving IV fluids, and even midodrine has been resumed, which he was on in the past. Despite our treatment, he is extremely orthostatic today: Lying: BP 114/63, HR 64. Sitting: BP105/70, HR 105. Standing: BP 104/87, HR 131. He has more than a 60 point increase in his heart rate, indicating orthostasis. He requires more care and is not ready for discharge. Will admit him to Inpatient status. We will continue with IV hydration. Continue Midodrine He was not septic from his UTI but we will continue to treat his infection with antibiotics. Will adjust doses and spread out his cardiac medications (Toprol-XL 100 mg every morning will be changed to 37.5 twice daily and adjust when blood pressure can tolerate it). An Echo was ordered by the admitting telemedicine doctor and is pending 2) Weakness Assessment/Plan: He was only home 1 day from the SNF in [place] and apparently "worsened quickly". Our Physical Therapist, Amairani, was able to communicate in Serbian with him directly yesterday and learned that he slid out of his recliner at home once, not fell 3 times, and that his could not pick him up, therefore she called 911. He was evaluated by PT yesterday and again recommendation is for a SNF, and he told the PT that he would agree to this, but not the one in [place], because they had limited Serbian speakers and communication was very suboptimal, he said. Also, after the discharge from [facility] (where he stayed for over a month), we thought he would be going to a long-term care facility in [place], close to where his children live. He told Amairani this was also not the case; he had hoped he might go to live with one of his children after SNF, but when it came time for this, the son said he could not take care of the pt, so he was discharged to his home from SNF. Our PT, Amairani, also learned that he would never agree to live in a long-term care facility, he wants to live at home. Amairani told him that he will need to have home caregivers therefore. This info was all passed on to J[facility]. Will continue to monitor orthostatic VS and treat. We have resume his midodrine 3 times daily with meals. Will continue with IV fluids while treating his infection. Will use PT and OT evaluations for [facility] planning, communicate with SW. 3) E coli UTI Assessment/Plan: He underwent abdomen and pelvis CT yesterday, which did not show strong evidence of pyelonephritis or stranding of his urinary bladder (which he did have just 2 months ago when hospitalized here). Will continued iv ceftriaxone. His urine culture results are growing E coli, and sens are available and it is sens to Cephalosporins Blood cultures are ntd. Will continue today's dose of IV ceftriaxone then switched to oral Keflex. A 14-day course is planned for good prostate penetration 4) Afib Assessment/Plan: Will continue home meds, adjusting dosing, and continue telemetry 5) Leg wounds Assessment/Plan: He has wounds of both shins and both heels. They are open and are painful. A [facility] Wound care consult was ordered and I spoke to Christin Muñoz. She saw him yesterday and will also see him for debridement if needed, she said. Her recommendations for wound care are there for our nurses. 6) Hypnoatremia Assessment/Plan: Na improved from 128 to 132 today. Continue with 0.9 NS IVF Follow BMP daily 7) Hypocalcemia Assessment/Plan: Will replace and recheck - Current Meds Current Meds: Current Medications Generic Name Dose Route Start Last Admin Trade Name Freq PRN Reason Stop Dose Admin Atorvastatin Calcium 10 mg 09/04/22 21:00 09/04/22 21:23 Atorvastatin 10 Mg Tablet PO 10 mg QPM ELIECER Administration Calcium Carbonate/Glycine 500 mg 09/04/22 21:00 09/04/22 21:23 Calcium Carbonate Chew 500 Mg Tablet PO 500 mg BID ELIECER Administration Famotidine 40 mg 09/04/22 21:00 09/04/22 21:23 Famotidine 20 Mg Tablet PO 40 mg BID ELIECER Administration Finasteride 5 mg 09/04/22 09:00 09/04/22 08:45 Finasteride 5 Mg Tablet PO 5 mg DAILY ELIECER Administration Heparin Sodium (Porcine) 5,000 unit 09/04/22 09:00 09/04/22 21:23 Heparin 5,000 Unit/Ml Vial SUBQ 5,000 unit BID ELIECER Administration Ceftriaxone Sodium 1 gm/ 100 mls @ 200 mls/hr 09/04/22 10:30 09/04/22 11:03 Sodium Chloride IV 09/05/22 23:59 Infused DAILY ELIECER Infusion Sodium Chloride 1,000 mls @ 83.33 mls/hr 09/05/22 07:32 09/05/22 08:11 Normal Saline 0.9% IV 83.33 mls/hr .Q12H1M ELIECER Administration Midodrine 5 mg 09/04/22 06:00 09/05/22 06:50 Midodrine 2.5 Mg Tablet PO 5 mg TID ELIECER Administration Oxycodone HCl 10 mg 09/04/22 14:12 09/05/22 06:50 Oxycodone 5 Mg Tablet PO 10 mg QID PRN Administration PAIN Sodium Chloride 10 ml 09/04/22 01:00 09/05/22 00:02 Sodium Chloride Flush 0.9% 10 Ml Syringe IVP Not Given 0100,0900,1700 ELIECER Trazodone HCl 25 mg 09/04/22 21:00 09/04/22 21:22 Trazodone 50 Mg Tablet PO 25 mg QPM ELIECER Administration - Lab Result Fish Bone Diagrams: 09/04/22 07:06 09/04/22 07:06 - Additional Planning My Orders: My Active Orders 09/04/22 10:30 cefTRIAXone [Rocephin] 1 gm Sodium Chloride 0.9% Minibag [Normal Saline 0.9% Minibag] 100 ml IV DAILY 09/04/22 11:14 Daily Weight [RC] 0600 09/04/22 Lunch Soft Mechanical Diet [DIET] 09/04/22 13:45 Diclofenac Sodium [Voltaren Arthritis Pain] 2 gm TP Q6H PRN 09/04/22 14:12 oxyCODONE [Roxicodone] 10 mg PO QID PRN 09/04/22 18:25 Telemetry (24 Hour) [RC] Q4HR 09/04/22 21:00 Atorvastatin [Lipitor] 10 mg PO QPM Calcium Carbonate [Tums] 500 mg PO BID Famotidine [Pepcid] 40 mg PO BID traZODone [Desyrel] 25 mg PO QPM 09/05/22 07:30 Miscellaenous Nursing Order [RC] QSHIFT 09/05/22 07:32 Sodium Chloride 0.9% [Normal Saline 0.9%] 1,000 ml IV 83.33 mls/hr 09/05/22 08:00 Multivitamin [Theragran] 1 tab PO DAILYWM 09/05/22 09:00 Aspirin EC [Ecotrin] 81 mg PO DAILY Cholecalciferol [Vitamin D3] 50 mcg PO DAILY Clopidogrel [Plavix] 75 mg PO DAILY Folic Acid 1 mg PO DAILY Metoprolol Succinate [Toprol Xl] 37.5 mg PO BID Patient Own Med [Patient Own Medication] 1 each PO DAILY 09/06/22 05:00 BMP - BASIC METABOLIC PANEL [CHEM] DAILYLAB CBC - COMP BLD CT W/AUTO DIFF [HEME] DAILYLAB 09/06/22 08:00 cephALEXin [Keflex] 500 mg PO Q6HR Subjective - Subjective Patient Reports: Feeling Better ("I am better than yesterday" he said), Resting Comfortably Nursing Reports: Other (Was able to stand to check orthostatics. Needed a lift to be put OOB into a chair.) Objective Vital Signs: Vital Signs - 24 hr 09/04/22 09/04/22 09/04/22 10:48 11:00 13:00 Temperature 36.9 C Heart Rate [ Brachial] Heart Rate [ 75 Monitoring electrodes] Heart Rate [ 94 94 Sitting] Heart Rate [ 90 90 Standing] Heart Rate [ 69 65 Supine] Respiratory 18 Rate Blood Pressure [Left Brachial artery] Blood Pressure 94/65 [Right Brachial artery] Blood Pressure 106/76 106/76 [Sitting] Blood Pressure 107/66 107/66 [Standing] Blood Pressure 100/65 100/65 [Supine] O2 Saturation 100 O2 Saturation [ 95 Supine] O2 Saturation [ 93 Without Activity] 09/04/22 09/04/22 09/05/22 15:31 20:08 00:24 Temperature 36.5 C 37.1 C 36.6 C Heart Rate [ 79 76 75 Brachial] Heart Rate [ Monitoring electrodes] Heart Rate [ Sitting] Heart Rate [ Standing] Heart Rate [ Supine] Respiratory 20 16 16 Rate Blood Pressure 110/75 118/81 H 94/63 [Left Brachial artery] Blood Pressure [Right Brachial artery] Blood Pressure [Sitting] Blood Pressure [Standing] Blood Pressure [Supine] O2 Saturation 100 100 100 O2 Saturation [ Supine] O2 Saturation [ Without Activity] 09/05/22 05:00 Temperature 36.5 C Heart Rate [ 66 Brachial] Heart Rate [ Monitoring electrodes] Heart Rate [ Sitting] Heart Rate [ Standing] Heart Rate [ Supine] Respiratory 16 Rate Blood Pressure 94/64 [Left Brachial artery] Blood Pressure [Right Brachial artery] Blood Pressure [Sitting] Blood Pressure [Standing] Blood Pressure [Supine] O2 Saturation 100 O2 Saturation [ Supine] O2 Saturation [ Without Activity] Oxygen O2 Source [Without Activity] Room air O2 Source Room air I&O (Last 24 Hrs): Intake and Output Totals x24h 09/03/22 09/04/22 09/05/22 23:59 23:59 23:59 Intake Total 1999 4150 1040 Output Total 50 1225 675 Balance 1950 2925 365 General: Alert, Oriented x3 HEENT: Mucous membr. moist/pink, Other (Pale) Neck: Supple, No JVD Neuro: Alert, Non Focal Cardiovascular: Regular rate Respiratory: No respiratory distress Abdomen: Soft Extremities: Other (Trace pretibial edema, shins and heels in bandages) - Results Results: Laboratory Results WBC 10.7 x10^3/uL (4.8-10.8) 09/04/22 07:06 RBC 3.34 10^6/uL (4.70-6.10) L 09/04/22 07:06 Hgb 10.3 g/dL (14.0-18.0) L 09/04/22 07:06 Hct 31.4 % (42.0-52.0) L 09/04/22 07:06 MCV 94.0 fL (80.0-94.0) 09/04/22 07:06 MCH 30.8 pg (27.0-31.0) 09/04/22 07:06 MCHC 32.8 g/dL (32.0-36.0) 09/04/22 07:06 RDW 13.8 % (12.0-15.0) 09/04/22 07:06 Plt Count 370 10^3/uL (130-450) 09/04/22 07:06 MPV 8.5 fL (7.4-11.4) 09/04/22 07:06 Neut # (Auto) 8.4 10^3/uL (1.5-6.6) H 09/04/22 07:06 Lymph # (Auto) 0.9 10^3/uL (1.5-3.5) L 09/04/22 07:06 [place] # (Auto) 1.0 10^3/uL (0.0-1.0) 09/04/22 07:06 Eos # (Auto) 0.2 10^3/uL (0.0-0.7) 09/04/22 07:06 Baso # (Auto) 0.1 10^3/uL (0.0-0.1) 09/04/22 07:06 Absolute Nucleated RBC 0.00 x10^3/uL 09/04/22 07:06 Nucleated RBC % 0.0 /100WBC 09/04/22 07:06 PT 13.8 secs (9.9-12.6) H 09/03/22 18:55 INR 1.3 (0.8-1.2) H 09/03/22 18:55 APTT 34.6 secs (24.9-33.3) H 09/03/22 18:55 VBG pH 7.419 (7.31-7.41) H 09/03/22 19:58 Ionized Calcium 1.02 mmol/L (1.15-1.33) L 09/03/22 19:58 Sodium 132 mmol/L (135-145) L 09/04/22 07:06 Potassium 3.8 mmol/L (3.5-5.0) 09/04/22 07:06 Chloride 101 mmol/L (101-111) 09/04/22 07:06 Carbon Dioxide 25 mmol/L (21-32) 09/04/22 07:06 Anion Gap 6.0 (6-13) 09/04/22 07:06 BUN 8 mg/dL (6-20) 09/04/22 07:06 Creatinine 0.5 mg/dL (0.6-1.2) L 09/04/22 07:06 Estimated GFR (MDRD) 165 (>89) 09/04/22 07:06 Glucose 72 mg/dL (70-100) 09/04/22 07:06 Lactic Acid 0.9 mmol/L (0.5-2.2) 09/04/22 05:50 Calcium 7.4 mg/dL (8.5-10.3) L 09/04/22 07:06 Total Bilirubin 0.8 mg/dL (0.2-1.0) 09/03/22 18:55 AST 17 IU/L (10-42) 09/03/22 18:55 ALT 14 IU/L (10-60) 09/03/22 18:55 Alkaline Phosphatase 94 IU/L (42-121) 09/03/22 18:55 Troponin I High Sens 5.9 ng/L (2.3-19.7) 09/03/22 18:55 Total Protein 5.4 g/dL (6.7-8.2) L 09/03/22 18:55 Albumin 2.2 g/dL (3.2-5.5) L 09/03/22 18:55 Globulin 3.2 g/dL (2.1-4.2) 09/03/22 18:55 Albumin/Globulin Ratio 0.7 (1.0-2.2) L 09/03/22 18:55 Lipase 20 U/L (22-51) L 09/03/22 18:55 Procalcitonin < 0.05 ng/mL (<0.5) 09/03/22 18:55 Urine Color YELLOW 09/03/22 19:25 Urine Clarity HAZY (CLEAR) 09/03/22 19:25 Urine pH 6.0 PH (5.0-7.5) 09/03/22 19:25 Ur Specific [place] 1.025 (1.002-1.030) 09/03/22 19:25 Urine Protein 30 mg/dL (NEGATIVE) H 09/03/22 19:25 Urine Glucose (UA) NEGATIVE mg/dL (NEGATIVE) 09/03/22 19:25 Urine Ketones TRACE mg/dL (NEGATIVE) 09/03/22 19:25 Urine Occult Blood NEGATIVE (NEGATIVE) 09/03/22 19:25 Urine Nitrite POSITIVE (NEGATIVE) H 09/03/22 19:25 Urine Bilirubin NEGATIVE (NEGATIVE) 09/03/22 19:25 Urine Urobilinogen 0.2 (NORMAL) E.U./dL (NORMAL) 09/03/22 19:25 Ur Leukocyte Esterase TRACE (NEGATIVE) H 09/03/22 19:25 Urine RBC 0-5 /HPF (0-5) 09/03/22 19:25 Urine WBC 11-25 /HPF (0-3) H 09/03/22 19:25 Ur Squamous Epith Cells RARE Squamous (<= Few) 09/03/22 19:25 Urine Bacteria Many /HPF (None Seen) H 09/03/22 19:25 Urine Casts 6-10 Hyaline Casts /LPF 09/03/22 19:25 Urine Mucus Moderate Strands 09/03/22 19:25 Ur Microscopic Review INDICATED 09/03/22 19:25 Urine Culture Comments INDICATED 09/03/22 19:25 Nasal Adenovirus (PCR) NOT DETECTED 09/03/22 18:44 Nasal B. parapertussis DNA (PCR) NOT DETECTED 09/03/22 18:44 Nasal Coronavir 229E PCR NOT DETECTED 09/03/22 18:44 Nasal Coronavir HKU1 PCR NOT DETECTED 09/03/22 18:44 Nasal Coronavir NL63 PCR NOT DETECTED 09/03/22 18:44 Nasal Coronavir OC43 PCR NOT DETECTED 09/03/22 18:44 Nasal Enterovir/Rhinovir PCR NOT DETECTED 09/03/22 18:44 Nasal Influenza B PCR NOT DETECTED 09/03/22 18:44 Nasal Influenza A PCR NOT DETECTED 09/03/22 18:44 Nasal Parainfluen 1 PCR NOT DETECTED 09/03/22 18:44 Nasal Parainfluen 2 PCR NOT DETECTED 09/03/22 18:44 Nasal Parainfluen 3 PCR NOT DETECTED 09/03/22 18:44 Nasal Parainfluen 4 PCR NOT DETECTED 09/03/22 18:44 Nasal RSV (PCR) NOT DETECTED 09/03/22 18:44 Nasal B.pertussis DNA PCR NOT DETECTED 09/03/22 18:44 Nasal C.pneumoniae (PCR) NOT DETECTED 09/03/22 18:44 Miky Human Metapneumo PCR NOT DETECTED 09/03/22 18:44 Nasal M.pneumoniae (PCR) NOT DETECTED 09/03/22 18:44 Nasal SARS-CoV-2 (PCR) NOT DETECTED 09/03/22 18:44 - Procedures Procedures: Procedures EXCISION OF L FOOT SUBCU/FASCIA, OPEN APPROACH (07/10/22) EXCISION OF R FOOT SUBCU/FASCIA, OPEN APPROACH (07/10/22) EXCISION OF R LOW LEG SUBCU/FASCIA, OPEN APPROACH (07/10/22)
[2022-09-05] MEDS: RANOLAZINE 500 MG PO SCH (08:48)
[2022-09-05] MEDS ORDERED: METOPROLOL SUCCINATE 50 MG TABLET PO SCH (09:00)
[2022-09-05] MEDS ORDERED: DICLOFENAC SODIUM 1% GEL 50 GM TUBE TOP PRN (10:25)
[2022-09-05] MEDS: ACETAMINOPHEN 325 MG TABLET PO PRN (20:55)
[2022-09-05] MEDS: traZODone 50 MG TABLET PO SCH (20:56)
[2022-09-05] MEDS: ATORVASTATIN 10 MG TABLET PO SCH (20:57)
[2022-09-06] MEDS: oxyCODONE 5 MG TABLET PO PRN ×3 (00:01→20:03)
[2022-09-06] MEDS: SODIUM CHLORIDE 0.9% 1,000 ML IV SCH ×3 (00:02→23:31)
[2022-09-06] MEDS: SODIUM CHLORIDE FLUSH 0.9% 10 ML SYRINGE IVP SCH ×4 (00:04→23:43)
[2022-09-06] MEDS: MIDODRINE 2.5 MG TABLET PO SCH ×4 (05:00→18:49)
[2022-09-06 05:08] LABS: BASOPHILS # (AUTO) 0.1 10^3/uL (0.0-0.1); BASOPHILS % (AUTO) 1.9 %; EOSINOPHILS # (AUTO) 0.7 10^3/uL (0.0-0.7); EOSINOPHILS % (AUTO) 10.4 %; HCT - HEMATOCRIT 29.4 % (42.0-52.0); HGB - HEMOGLOBIN 9.5 g/dL (14.0-18.0); LYMPHOCYTES # (AUTO) 1.5 10^3/uL (1.5-3.5); LYMPHOCYTES % (AUTO) 23.2 %; MEAN CORPUSCULAR HEMOGLOBIN 30.5 pg (27.0-31.0); MEAN CORPUSCULAR HGB CONC 32.3 g/dL (32.0-36.0); MEAN CORPUSCULAR VOLUME 94.5 fL (80.0-94.0); MEAN PLATELET VOLUME 8.6 fL (7.4-11.4); MONOCYTES # (AUTO) 0.7 10^3/uL (0.0-1.0); MONOCYTES % (AUTO) 11.1 %; NEUTROPHILS # (AUTO) 3.4 10^3/uL (1.5-6.6); NEUTROPHILS % (AUTO) 52.6 %; PLT - PLATELET COUNT 348 10^3/uL (130-450); RED BLOOD COUNT 3.11 10^6/uL (4.70-6.10); RED CELL DISTRIBUTION WIDTH 13.9 % (12.0-15.0); WHITE BLOOD COUNT 6.4 x10^3/uL (4.8-10.8)
[2022-09-06 05:18] LABS: CALCIUM 7.4 mg/dL (8.5-10.3); CREATININE 0.5 mg/dL (0.6-1.2); POTASSIUM 3.2 mmol/L (3.5-5.0)
--- NOTE | 2022-09-06 07:59 | PROVIDER PROGRESS NOTE ---
Assessment/Plan - Problem List (1) Orthostatic hypotension Assessment/Plan: This patient presented after he slid out of his recliner chair at home due to severe weakness. He did not have syncope. Despite being in SNF recently for PT and OT rehab, he was very deconditioned, unable to stand after that fall to the ground at home, and his could not lift him. He was brought to the ER by ambulance. He had a"soft" BP, started to get IV fluids, and even midodrine was resumed, which he was on in the past. Despite this, he continues to have a low BP and more than a 60 point increase in his heart rate yesterday and was made an Inpt. An Echo was done and showed normal LVEF of 60% We will continue with IV hydration with saline I am also adjusting doses and spreading out his cardiac medications with holding parameters. Will continue to monitor orthostatic VS and manage I will change his midodrine from tid to 3 times daily with meals. He has started to work with PT and OT 2) Generalized weakness Assessment/Plan: He was only home 1 day from the SNF in [place] and may have gone home weaker than when he left here for that SNF, because he was able to ambulate 10 feet here. Our Physical Therapist, Amairani, was able to communicate in [place] with him directly and learned that when he was at [facility], they had limited [place] speakers and communication was very suboptimal, and they did little rehab with him. Will continue to monitor orthostatic VS and treat with saline and we have resumed his midodrine 3 times daily with meals. Continue working with PT and OT, and he is noticably stronger (since day of admission), and is motivated. 3) E coli UTI Assessment/Plan: He underwent abdomen and pelvis CT, which did not show strong evidence of pyelonephritis or cystitis (which he did have just 2 months ago when maria mi talized here). His urine culture results are growing E coli, and sens are available and it is sens to Cephalosporins Blood cultures are neg to date. We changed iv ceftriaxone to Keflex starting today. A 14-day total antibx course is planned for good prostate penetration 4) Leg wounds Assessment/Plan: There is mild edema of his shins, which has been chronic for him. Therefore an Echo was done and showed normal LVEF of 60% He has wounds of both shins and both heels. They are open and are painful. They are covered in bandages A [facility] Wound care consult was requested and was done. Her recommendations for wound care are there for our nurses and he will be seen by building specialist again today. 5) Hypnoatremia Assessment/Plan: Na improved from 128 to 132 and is back down to 128 today Continue with 0.9 NS IVF. Will increase rate from 83cc/hr to 100cc/hr, now that Echo has shown a normal LVEF Follow BMP daily 6) Hypocalcemia Assessment/Plan: Will replace and recheck 7) Hx Afib Assessment/Plan: He has been in sinus rhytm on telemetry, this admission. Will continue home meds, adjusting dosing. Telemetry may be stopped. - Current Meds Current Meds: Current Medications Generic Name Dose Route Start Last Admin Trade Name Freq PRN Reason Stop Dose Admin Acetaminophen 650 mg 09/05/22 17:53 09/05/22 20:55 Acetaminophen 325 Mg Tablet PO 650 mg Q4HR PRN Administration Pain or Fever > 38C (100.4F) Aspirin 81 mg 09/05/22 09:00 09/05/22 08:29 Aspirin Ec 81 Mg Tablet PO 81 mg DAILY ELIECER Administration Atorvastatin Calcium 10 mg 09/04/22 21:00 09/05/22 20:57 Atorvastatin 10 Mg Tablet PO 10 mg QPM ELIECER Administration Calcium Carbonate/Glycine 500 mg 09/04/22 21:00 09/05/22 20:57 Calcium Carbonate Chew 500 Mg Tablet PO 500 mg BID ELIECER Administration Cholecalciferol 50 mcg 09/05/22 09:00 09/05/22 08:29 Cholecalciferol 25 Mcg Tablet PO 50 mcg DAILY ELIECER Administration Clopidogrel Bisulfate 75 mg 09/05/22 09:00 09/05/22 08:29 Clopidogrel 75 Mg Tablet PO 75 mg DAILY ELIECER Administration Famotidine 40 mg 09/04/22 21:00 09/05/22 20:56 Famotidine 20 Mg Tablet PO 40 mg BID ELIECER Administration Finasteride 5 mg 09/04/22 09:00 09/05/22 08:29 Finasteride 5 Mg Tablet PO 5 mg DAILY ELIECER Administration Folic Acid 1 mg 09/05/22 09:00 09/05/22 08:29 Folic Acid 1 Mg Tablet PO 1 mg DAILY ELIECER Administration Metoprolol Succinate 37.5 mg 09/05/22 09:00 09/05/22 20:57 Metoprolol Succinate 25 Mg Tablet PO 37.5 mg BID ELIECER Administration Multivitamins 1 tab 09/05/22 08:00 09/05/22 08:29 Multivitamin Tablet PO 1 tab DAILYWM ELIECER Administration Oxycodone HCl 10 mg 09/04/22 14:12 09/06/22 00:01 Oxycodone 5 Mg Tablet PO 10 mg QID PRN Administration PAIN Patient Own Med: 1 each 09/05/22 09:00 09/05/22 08:48 Ranolazine [Ranexa] PO Not Given 500 Mg Tablet DAILY ELIECER Sodium Chloride 10 ml 09/04/22 01:00 09/06/22 00:04 Sodium Chloride Flush 0.9% 10 Ml Syringe IVP Not Given 0100,0900,1700 ELIECER Trazodone HCl 25 mg 09/04/22 21:00 09/05/22 20:56 Trazodone 50 Mg Tablet PO 25 mg QPM ELIECER Administration - Lab Result Fish Bone Diagrams: 09/06/22 04:30 09/06/22 04:30 - Diagnostic Imaging Results Diagnostic Imaging Results: Final report reviewed - Additional Planning My Orders: My Active Orders 09/05/22 07:30 Miscellaenous Nursing Order [RC] QSHIFT 09/05/22 08:00 Multivitamin [Theragran] 1 tab PO DAILYWM 09/05/22 09:00 Aspirin EC [Ecotrin] 81 mg PO DAILY Cholecalciferol [Vitamin D3] 50 mcg PO DAILY Clopidogrel [Plavix] 75 mg PO DAILY Folic Acid 1 mg PO DAILY Metoprolol Succinate [Toprol Xl] 37.5 mg PO BID Patient Own Med [Patient Own Medication] 1 each PO DAILY 09/05/22 10:25 Diclofenac Sodium 1% Gel [Voltaren Gel] 2 gm TOP Q6H PRN 09/05/22 17:53 Acetaminophen [Tylenol] 650 mg PO Q4HR PRN 09/06/22 07:44 Sodium Chloride 0.9% [Normal Saline 0.9%] 1,000 ml IV 100 mls/hr 09/06/22 08:00 Midodrine [ProAmatine] 5 mg PO TIDWM cephALEXin [Keflex] 500 mg PO Q6HR 09/06/22 09:00 Enoxaparin [Lovenox] 40 mg SUBQ DAILY polyethylene glycoL 3350 [Miralax] 17 gm PO DAILY 09/07/22 05:00 BMP - BASIC METABOLIC PANEL [CHEM] DAILYLAB CALCIUM [CHEM] DAILYLAB CBC - COMP BLD CT W/AUTO DIFF [HEME] DAILYLAB MAGNESIUM [CHEM] DAILYLAB PHOSPHORUS [CHEM] DAILYLAB 09/08/22 05:00 BMP - BASIC METABOLIC PANEL [CHEM] DAILYLAB CBC - COMP BLD CT W/AUTO DIFF [HEME] DAILYLAB 09/09/22 05:00 BMP - BASIC METABOLIC PANEL [CHEM] DAILYLAB CBC - COMP BLD CT W/AUTO DIFF [HEME] DAILYLAB 09/10/22 05:00 BMP - BASIC METABOLIC PANEL [CHEM] DAILYLAB CBC - COMP BLD CT W/AUTO DIFF [HEME] DAILYLAB Subjective - Subjective Patient Reports: Feeling Better (He reports to me that he is more awake and feels noticeably stronger, and "wants to get better") Objective Vital Signs: Vital Signs - 24 hr 09/05/22 09/05/22 09/05/22 08:13 11:18 13:05 Temperature 36.0 C L 36.1 C L Heart Rate [ 76 Activity] Heart Rate [ 64 67 Brachial] Heart Rate [ 80 Sitting] Heart Rate [ 90 Standing] Heart Rate [ 74 Supine] Respiratory 18 16 Rate Blood Pressure 103/64 [Activity] Blood Pressure 114/63 90/60 [Left Brachial artery] Blood Pressure 98/71 [Sitting] Blood Pressure 107/66 [Standing] Blood Pressure 88/58 L [Supine] O2 Saturation 100 100 09/05/22 09/05/22 09/06/22 15:52 20:41 00:04 Temperature 36.5 C 36.6 C 36.5 C Heart Rate [ Activity] Heart Rate [ 62 67 55 L Brachial] Heart Rate [ Sitting] Heart Rate [ Standing] Heart Rate [ Supine] Respiratory 16 15 14 Rate Blood Pressure [Activity] Blood Pressure 109/78 103/65 103/65 [Left Brachial artery] Blood Pressure [Sitting] Blood Pressure [Standing] Blood Pressure [Supine] O2 Saturation 100 100 100 09/06/22 09/06/22 04:31 07:17 Temperature 36.3 C L 36.5 C Heart Rate [ Activity] Heart Rate [ 67 56 L Brachial] Heart Rate [ Sitting] Heart Rate [ Standing] Heart Rate [ Supine] Respiratory 18 16 Rate Blood Pressure [Activity] Blood Pressure 103/64 99/69 [Left Brachial artery] Blood Pressure [Sitting] Blood Pressure [Standing] Blood Pressure [Supine] O2 Saturation 100 100 Oxygen O2 Source [Without Activity] Room air O2 Source Room air I&O (Last 24 Hrs): Intake and Output Totals x24h 09/04/22 09/05/22 09/06/22 23:59 23:59 23:59 Intake Total 4150 3551.377 100 Output Total 1225 1500 475 Balance 2925 2051.377 -375 General: Alert, Oriented x3, Other (Pale) HEENT: Mucous membr. moist/pink Neck: Supple, No JVD Neuro: Alert, Non Focal Cardiovascular: Regular rate, No murmurs Respiratory: No respiratory distress, Breath sounds nml Abdomen: Normal bowel sounds, Soft Extremities: Other (Trace pretibial edema. Shins are bandaged. Heels are bandaged) - Results Results: Laboratory Results WBC 6.4 x10^3/uL (4.8-10.8) 09/06/22 04:30 RBC 3.11 10^6/uL (4.70-6.10) L 09/06/22 04:30 Hgb 9.5 g/dL (14.0-18.0) L 09/06/22 04:30 Hct 29.4 % (42.0-52.0) L 09/06/22 04:30 MCV 94.5 fL (80.0-94.0) H 09/06/22 04:30 MCH 30.5 pg (27.0-31.0) 09/06/22 04:30 MCHC 32.3 g/dL (32.0-36.0) 09/06/22 04:30 RDW 13.9 % (12.0-15.0) 09/06/22 04:30 Plt Count 348 10^3/uL (130-450) 09/06/22 04:30 MPV 8.6 fL (7.4-11.4) 09/06/22 04:30 Neut # (Auto) 3.4 10^3/uL (1.5-6.6) 09/06/22 04:30 Lymph # (Auto) 1.5 10^3/uL (1.5-3.5) 09/06/22 04:30 [place] # (Auto) 0.7 10^3/uL (0.0-1.0) 09/06/22 04:30 Eos # (Auto) 0.7 10^3/uL (0.0-0.7) 09/06/22 04:30 Baso # (Auto) 0.1 10^3/uL (0.0-0.1) 09/06/22 04:30 Absolute Nucleated RBC 0.00 x10^3/uL 09/06/22 04:30 Nucleated RBC % 0.0 /100WBC 09/06/22 04:30 PT 13.8 secs (9.9-12.6) H 09/03/22 18:55 INR 1.3 (0.8-1.2) H 09/03/22 18:55 APTT 34.6 secs (24.9-33.3) H 09/03/22 18:55 VBG pH 7.419 (7.31-7.41) H 09/03/22 19:58 Ionized Calcium 1.02 mmol/L (1.15-1.33) L 09/03/22 19:58 Sodium 129 mmol/L (135-145) L 09/06/22 04:30 Potassium 3.2 mmol/L (3.5-5.0) L 09/06/22 04:30 Chloride 102 mmol/L (101-111) 09/06/22 04:30 Carbon Dioxide 23 mmol/L (21-32) 09/06/22 04:30 Anion Gap 4.0 (6-13) L 09/06/22 04:30 BUN 5 mg/dL (6-20) L 09/06/22 04:30 Creatinine 0.5 mg/dL (0.6-1.2) L 09/06/22 04:30 Estimated GFR (MDRD) 165 (>89) 09/06/22 04:30 Glucose 69 mg/dL (70-100) L 09/06/22 04:30 Lactic Acid 0.9 mmol/L (0.5-2.2) 09/04/22 05:50 Calcium 7.4 mg/dL (8.5-10.3) L 09/06/22 04:30 Total Bilirubin 0.8 mg/dL (0.2-1.0) 09/03/22 18:55 AST 17 IU/L (10-42) 09/03/22 18:55 ALT 14 IU/L (10-60) 09/03/22 18:55 Alkaline Phosphatase 94 IU/L (42-121) 09/03/22 18:55 Troponin I High Sens 5.9 ng/L (2.3-19.7) 09/03/22 18:55 Total Protein 5.4 g/dL (6.7-8.2) L 09/03/22 18:55 Albumin 2.2 g/dL (3.2-5.5) L 09/03/22 18:55 Globulin 3.2 g/dL (2.1-4.2) 09/03/22 18:55 Albumin/Globulin Ratio 0.7 (1.0-2.2) L 09/03/22 18:55 Lipase 20 U/L (22-51) L 09/03/22 18:55 Procalcitonin < 0.05 ng/mL (<0.5) 09/03/22 18:55 Urine Color YELLOW 09/03/22 19:25 Urine Clarity HAZY (CLEAR) 09/03/22 19:25 Urine pH 6.0 PH (5.0-7.5) 09/03/22 19:25 Ur Specific [place] 1.025 (1.002-1.030) 09/03/22 19:25 Urine Protein 30 mg/dL (NEGATIVE) H 09/03/22 19:25 Urine Glucose (UA) NEGATIVE mg/dL (NEGATIVE) 09/03/22 19:25 Urine Ketones TRACE mg/dL (NEGATIVE) 09/03/22 19:25 Urine Occult Blood NEGATIVE (NEGATIVE) 09/03/22 19:25 Urine Nitrite POSITIVE (NEGATIVE) H 09/03/22 19:25 Urine Bilirubin NEGATIVE (NEGATIVE) 09/03/22 19:25 Urine Urobilinogen 0.2 (NORMAL) E.U./dL (NORMAL) 09/03/22 19:25 Ur Leukocyte Esterase TRACE (NEGATIVE) H 09/03/22 19:25 Urine RBC 0-5 /HPF (0-5) 09/03/22 19:25 Urine WBC 11-25 /HPF (0-3) H 09/03/22 19:25 Ur Squamous Epith Cells RARE Squamous (<= Few) 09/03/22 19:25 Urine Bacteria Many /HPF (None Seen) H 09/03/22 19:25 Urine Casts 6-10 Hyaline Casts /LPF 09/03/22 19:25 Urine Mucus Moderate Strands 09/03/22 19:25 Ur Microscopic Review INDICATED 09/03/22 19:25 Urine Culture Comments INDICATED 09/03/22 19:25 Nasal Adenovirus (PCR) NOT DETECTED 09/03/22 18:44 Nasal B. parapertussis DNA (PCR) NOT DETECTED 09/03/22 18:44 Nasal Coronavir 229E PCR NOT DETECTED 09/03/22 18:44 Nasal Coronavir HKU1 PCR NOT DETECTED 09/03/22 18:44 Nasal Coronavir NL63 PCR NOT DETECTED 09/03/22 18:44 Nasal Coronavir OC43 PCR NOT DETECTED 09/03/22 18:44 Nasal Enterovir/Rhinovir PCR NOT DETECTED 09/03/22 18:44 Nasal Influenza B PCR NOT DETECTED 09/03/22 18:44 Nasal Influenza A PCR NOT DETECTED 09/03/22 18:44 Nasal Parainfluen 1 PCR NOT DETECTED 09/03/22 18:44 Nasal Parainfluen 2 PCR NOT DETECTED 09/03/22 18:44 Nasal Parainfluen 3 PCR NOT DETECTED 09/03/22 18:44 Nasal Parainfluen 4 PCR NOT DETECTED 09/03/22 18:44 Nasal RSV (PCR) NOT DETECTED 09/03/22 18:44 Nasal B.pertussis DNA PCR NOT DETECTED 09/03/22 18:44 Nasal C.pneumoniae (PCR) NOT DETECTED 09/03/22 18:44 Miky Human Metapneumo PCR NOT DETECTED 09/03/22 18:44 Nasal M.pneumoniae (PCR) NOT DETECTED 09/03/22 18:44 Nasal SARS-CoV-2 (PCR) NOT DETECTED 09/03/22 18:44 - Procedures Procedures: Procedures EXCISION OF L FOOT SUBCU/FASCIA, OPEN APPROACH (07/10/22) EXCISION OF R FOOT SUBCU/FASCIA, OPEN APPROACH (07/10/22) EXCISION OF R LOW LEG SUBCU/FASCIA, OPEN APPROACH (07/10/22)
[2022-09-06] MEDS: CLOPIDOGREL 75 MG TABLET PO SCH (08:46)
[2022-09-06] MEDS: CALCIUM CARBONATE CHEW 500 MG TABLET PO SCH ×2 (08:46→21:27)
[2022-09-06] MEDS: FINASTERIDE 5 MG TABLET PO SCH (08:46)
[2022-09-06] MEDS: FAMOTIDINE 20 MG TABLET PO SCH ×2 (08:46→21:28)
[2022-09-06] MEDS: cephALEXin 250 MG CAPSULE PO SCH ×4 (08:46→23:31)
[2022-09-06] MEDS: ASPIRIN EC 81 MG TABLET PO SCH (08:46)
[2022-09-06] MEDS: FOLIC ACID 1 MG TABLET PO SCH (08:46)
[2022-09-06] MEDS: MULTIVITAMIN TABLET PO SCH (08:46)
[2022-09-06] MEDS: CHOLECALCIFEROL 25 MCG TABLET PO SCH (08:47)
[2022-09-06] MEDS: polyethylene glycoL 3350 17 GM PACKET PO SCH ×2 (08:47→08:59)
[2022-09-06] MEDS: METOPROLOL SUCCINATE 25 MG TABLET PO SCH ×2 (08:47→21:27)
[2022-09-06] MEDS: ENOXAPARIN 40 MG/0.4 ML SYRINGE SUBQ SCH (08:47)
[2022-09-06] MEDS: RANOLAZINE 500 MG PO SCH (08:48)
--- NOTE | 2022-09-06 12:12 | WOUND CARE PROGRESS NOTE ---
Assessment/Plan - Problem List (1) Pressure injury, unstageable Qualifiers: Pressure injury location: unspecified location Qualified Code(s): L89.95 - Pressure ulcer of unspecified site, unstageable Assessment/Plan: Left heel, right great toe. Unable to visualize wound bed post debridement. No s/s infection. Plan of care: Wound hygiene with sharp debridement of non-viable tissue and antimicrobial solution. Dressing with gentamicin ointment, hydrofera blue, plain foam to both wounds. Skin sensitive tape to secure dressing of left heel, coban to secure dressing to right great toe. Dressings to remain dry and intact. RTC as above. (2) Pressure injury of right heel, stage 2 Assessment/Plan: Chronic. Healing stage 2 pressure injury. Plan of care: Wound hygiene with antimicrobial solution. Dressing with gentamicin ointment and hydrofera blue followed by a plain foam border dressing. Patient will RTC in 5 days (09/11/2022) for wound check and dressing change. Dressing to stay dry and intact with floating of the heels. (3) Pressure injury of sacral region, stage 2 Assessment/Plan: No s/s infection. Plan of care: Wound hygiene with antimicrobial solution. Dressing with gentamicin and hydrofera blue followed by a plain foam border dressing. Dressing to be replace if soiled or dislodged using thick duoderm. Otherwise, dressing to stay in place until wound care follow up visit. (4) Non-pressure chronic ulcer of lower leg, limited to breakdown of skin Qualifiers: Laterality: unspecified laterality Qualified Code(s): L97.901 - Non- pressure chronic ulcer of unspecified part of unspecified lower leg limited to breakdown of skin Assessment/Plan: Right lower extremity, at site of previous hematoma that led to open wound treated in wound care 07/2022. Healing well. No s/s infection. Scattered wounds to left lower leg, no s/s infection. Plan of care: Wound hygiene with selective debridement of non-viable tissue. Dressing with xeroform and roll gauze followed by tubigrip size C to BLE. Dressings should be kept dry and remain in place. Fol low up in wound care next week as above. - Results Lab Results: Laboratory Results Sodium 129 mmol/L (135-145) L 09/06/22 04:30 Potassium 3.2 mmol/L (3.5-5.0) L 09/06/22 04:30 Chloride 102 mmol/L (101-111) 09/06/22 04:30 Carbon Dioxide 23 mmol/L (21-32) 09/06/22 04:30 Anion Gap 4.0 (6-13) L 09/06/22 04:30 BUN 5 mg/dL (6-20) L 09/06/22 04:30 Creatinine 0.5 mg/dL (0.6-1.2) L 09/06/22 04:30 Glucose 69 mg/dL (70-100) L 09/06/22 04:30 Calcium 7.4 mg/dL (8.5-10.3) L 09/06/22 04:30 Total Bilirubin 0.8 mg/dL (0.2-1.0) 09/03/22 18:55 AST 17 IU/L (10-42) 09/03/22 18:55 ALT 14 IU/L (10-60) 09/03/22 18:55 Alkaline Phosphatase 94 IU/L (42-121) 09/03/22 18:55 Total Protein 5.4 g/dL (6.7-8.2) L 09/03/22 18:55 Albumin 2.2 g/dL (3.2-5.5) L 09/03/22 18:55 Globulin 3.2 g/dL (2.1-4.2) 09/03/22 18:55 Albumin/Globulin Ratio 0.7 (1.0-2.2) L 09/03/22 18:55 09/03/22 19:09 Blood Blood Culture - Preliminary NO GROWTH AFTER 2 DAYS 09/03/22 18:55 Blood Blood Culture - Preliminary NO GROWTH AFTER 2 DAYS 09/03/22 19:25 Urine,Catheterized Urine Culture - Final Escherichia Coli - Home Meds/Allergies Allergies hydrocodone bitartrate * [From Vicodin] Adverse Reaction (Verified 09/03/22 18:19) Unknown iron Adverse Reaction (Verified 09/03/22 18:19) Unknown lactose Adverse Reaction (Verified 09/04/22 14:44) Unknown Home Medications Furosemide [Lasix] 80 mg PO DAILY 09/04/22 [History Confirmed 09/04/22] Metoprolol Succinate 100 mg PO DAILY 09/04/22 [History Confirmed 09/04/22] Oxycodone HCl/Acetaminophen [Percocet 10-325 mg Tablet] 1 tab PO QID PRN 09/04/22 [History Confirmed 09/04/22] lisinopriL [Lisinopril] 40 mg PO DAILY 09/04/22 [History Confirmed 09/04/22] - Additional Planning Condition/Complexity: Stable Plan Discussed with:: Patient Objective General: Alert, Oriented x3, Cooperative, No acute distress, Other - Wound Assessment Wound assessment: Wound #1: Right lower extremity The wound is partial thickness. The wound bed is 100% eschar prior to selective debridement and 100 % dermis post debridement. The wound edges are attached and proliferative. No undermining, no tunneling. The periwound is wnl. There is no drainage. No odor. 1+ edema. The patient denies pain. Capillary refill wnl, normal sensation. No s/s infection. Wound #2: Right medial ankle: Healed (Treated at previous hospital stay) Wound #3: Right heel-measuring 0.6 x 0.7 x 0.1 The wound is a stage 2 pressure injury. The wound bed is 100 % red dermis. The wound edges are attached and proliferative. No undermining, no tunneling. The periwound is wnl. There is no drainage. No odor. No edema. The patient denies pain. Capillary refill wnl, normal sensation. No s/s infection. Wound #4: Left lower extremity The wound full thickness. The wound bed is 100% proteinaceous slough and eschar prior to selective debridement. The wound edges are attached and proliferative. No undermining, no tunneling. The periwound is dry and scaling. There is no drainage. No odor. 1+ edema. The patientdenies pain. Capillary refill wnl, normal sensation. No s/s infection. Wound #5:Left medial ankle: Healed (Treated at previous hospital stay) Wound #6: Buttock-measuring 0.5 x 0.6 x 0.1 The wound is a stage 2 pressure injury. The wound bed is 100 % pink dermis. The wound edges are attached and proliferative. No undermining, no tunneling. The periwound is wnl. There are scattered areas of blanchable erythema. There is no drainage. No odor. No edema. The patient reports tenderness. No s/s infection. Wound #7: Left heel The wound is an unstageable pressure injury. The wound bed is not visible and covered by 100% thick adherent slough. The wound edges are epibolized. No undermining, no tunneling. The periwound is wnl. There is mild drainage. No odor. No edema. The patient reports tenderness. Capillary refill wnl, normal sensation. No s/s infection. Wound #8: Right great toe The wound is an unstageable pressure injury. The wound bed is not visible and covered by 100% eschar prior to selective debridement. Wound could only be debrided down to thick adherent slough. The wound edges are attached. No undermining, no tunneling. The periwound is wnl. There is no drainage. No odor. No edema. The patient reports tenderness. Capillary refill wnl, normal sensation. No s/s infection. Left: Pulses DP/PT palpable Right: Pulses DP/PT palpable Subjective - Subjective Patient Reports: Feeling Better (Currently inpatient status, room 2208) Procedure - Procedure Note Selective wound debridement: Wound #1: Right lower extremity: Pre: 0 x 0 x 0 (scab) Post:1.3 x 1.1 x 0.1 Total area debrided: 1.43 sq cm After informed consent, the wound and periwound were cleansed, then 5% topical lidocaine was applied for local anesthesia. Using curved forceps, the wound was selectively debrided of proteinaceous slough, fibrin, and debris, with minimal/no bleeding. A new dressing consisting of xeroform with antimicrobial properties was applied. Patient tolerated the procedure well without apparent complications. Appropriate follow up instructions were given. Wound #4: Left lower extremity: Pre: 0.4 x 0.4 x 0.1 Post: 0.5 x 0.6 x 0.1 Total area debrided: 0.3 sq cm After informed consent, the wound and periwound were cleansed, then 5% topical lidocaine was applied for local anesthesia. Using curved forceps, the wound was selectively debrided of proteinaceous slough, fibrin, and debris, with minimal/no bleeding. A new dressing consisting of xeroform with antimicrobial properties was applied. Patient tolerated the procedure well without apparent complications. Appropriate follow up instructions were given. Wound #7: Left heel: Pre: 0.9 x 1.8 x 0.3 Post: 0.9 x 1.8 x 0.4 Total area debrided: 1.62 sq cm After informed consent, the wound and periwound were cleansed, then 5% topical lidocaine was applied for local anesthesia. Using curved forceps, the wound was selectively debrided of proteinaceous slough, fibrin, and debris, with no bleeding. Unable to visualize wound bed post debridement. A new dressing consisting of gentamicin ointment and hydrofera blue with antimicrobial properties was applied. Patient tolerated the procedure well without apparent complications. Appropriate follow up instructions were given. Wound #8: Right great toe-Pre:0.7 x 1.2 x 0 Post: 0.7 x 0.6 x 0.1 Total area debrided: 0.42 sq cm After informed consent, the wound and periwound were cleansed, then 5% topical lidocaine was applied for local anesthesia. Using curved forceps, a #15 blade, and a 3mm curette, the wound was selectively debrided of proteinaceous slough, fibrin, and debris, with minimal bleeding. Upon removal of superficial eschar, newly healed tissue revealed causing wound to measure smaller post debridment. Unable to visualize wound bed due to thick adherent slough. A new dressing consisting of gentamicin ointment and hydrofera blue with antimicrobial properties was applied. Patient tolerated the procedure well without apparent complications. Appropriate follow up instructions were given. Meds/Allgy - Home Medications Home Medications: Ambulatory Orders Medication Instructions Recorded Confirmed Aspirin [Aspirin EC] 81 mg PO DAILY 10/21/14 09/04/22 Clopidogrel [Plavix] 75 mg PO DAILY 10/21/14 09/04/22 Diclofenac Sodium [Voltaren 2 gm TP Q6H PRN 07/04/22 09/04/22 Arthritis Pain] Famotidine [Pepcid] 40 mg PO BID 07/04/22 09/04/22 Atorvastatin [Lipitor] 10 mg PO QPM #0 07/30/22 09/04/22 Calcium Carbonate [Tums (Calcium 500 mg PO BID tablet 07/30/22 09/04/22 Carbonate 500mg)] Cholecalciferol [Vitamin D3] 50 mcg PO DAILY tablet 07/30/22 09/04/22 Folic Acid 1 mg PO DAILY #0 07/30/22 09/04/22 Multivitamin [Theragran] 1 tab PO DAILYWM tablet 07/30/22 09/04/22 Ranolazine [Ranexa] 500 mg PO DAILY #0 07/30/22 09/04/22 traZODone [Desyrel] 25 mg PO QPM tablet 07/30/22 09/04/22 Furosemide [Lasix] 80 mg PO DAILY 09/04/22 09/04/22 Metoprolol Succinate 100 mg PO DAILY 09/04/22 09/04/22 Oxycodone HCl/Acetaminophen 1 tab PO QID PRN 09/04/22 09/04/22 [Percocet 10-325 mg Tablet] lisinopriL [Lisinopril] 40 mg PO DAILY 09/04/22 09/04/22 - Allergies Allergies/Adverse Reactions: Allergies Allergy/AdvReac Type Severity Reaction Status Date / Time hydrocodone bitartrate * AdvReac Unknown Verified 09/03/22 18:19 [From Vicodin] iron AdvReac Unknown Verified 09/03/22 18:19 lactose AdvReac Unknown Verified 09/04/22 14:44
[2022-09-06] MEDS: POTASSIUM CHLOR 10 MEQ/100 ML 10 MEQ/100 ML BAG IV SCH ×4 (14:54→18:56)
[2022-09-06] MEDS: traZODone 50 MG TABLET PO SCH (21:27)
[2022-09-06] MEDS: ATORVASTATIN 10 MG TABLET PO SCH (21:27)
[2022-09-07] MEDS: oxyCODONE 5 MG TABLET PO PRN ×4 (02:00→21:06)
[2022-09-07 04:59] LABS: BASOPHILS # (AUTO) 0.1 10^3/uL (0.0-0.1); BASOPHILS % (AUTO) 1.5 %; EOSINOPHILS # (AUTO) 0.5 10^3/uL (0.0-0.7); EOSINOPHILS % (AUTO) 8.2 %; HCT - HEMATOCRIT 28.8 % (42.0-52.0); HGB - HEMOGLOBIN 9.8 g/dL (14.0-18.0); LYMPHOCYTES # (AUTO) 1.2 10^3/uL (1.5-3.5); LYMPHOCYTES % (AUTO) 19.7 %; MEAN CORPUSCULAR HEMOGLOBIN 31.1 pg (27.0-31.0); MEAN CORPUSCULAR VOLUME 91.4 fL (80.0-94.0); MEAN PLATELET VOLUME 8.5 fL (7.4-11.4); MONOCYTES # (AUTO) 0.5 10^3/uL (0.0-1.0); MONOCYTES % (AUTO) 8.7 %; NEUTROPHILS # (AUTO) 3.6 10^3/uL (1.5-6.6); NEUTROPHILS % (AUTO) 61.2 %; PLT - PLATELET COUNT 378 10^3/uL (130-450); RED BLOOD COUNT 3.15 10^6/uL (4.70-6.10); WHITE BLOOD COUNT 5.8 x10^3/uL (4.8-10.8)
[2022-09-07 05:13] LABS: CALCIUM 7.4 mg/dL (8.5-10.3); CREATININE 0.4 mg/dL (0.6-1.2); MAGNESIUM 1.5 mg/dL (1.7-2.8); PHOSPHORUS 2.4 mg/dL (2.5-4.6); POTASSIUM 3.7 mmol/L (3.5-5.0)
[2022-09-07] MEDS: cephALEXin 250 MG CAPSULE PO SCH ×4 (05:30→23:38)
[2022-09-07] MEDS ORDERED: MAGNESIUM SULFATE 2 GRAM 2 GM/50 ML BAG IV ONE (07:56)
[2022-09-07] MEDS: MIDODRINE 2.5 MG TABLET PO SCH ×3 (08:51→17:44)
[2022-09-07] MEDS: ACETAMINOPHEN 325 MG TABLET PO PRN (08:51)
[2022-09-07] MEDS: CLOPIDOGREL 75 MG TABLET PO SCH (08:52)
[2022-09-07] MEDS: CHOLECALCIFEROL 25 MCG TABLET PO SCH (08:52)
[2022-09-07] MEDS: FINASTERIDE 5 MG TABLET PO SCH (08:52)
[2022-09-07] MEDS: MULTIVITAMIN TABLET PO SCH (08:52)
[2022-09-07] MEDS: FAMOTIDINE 20 MG TABLET PO SCH ×2 (08:52→21:07)
[2022-09-07] MEDS: ASPIRIN EC 81 MG TABLET PO SCH (08:52)
[2022-09-07] MEDS: ENOXAPARIN 40 MG/0.4 ML SYRINGE SUBQ SCH (08:52)
[2022-09-07] MEDS: FOLIC ACID 1 MG TABLET PO SCH (08:52)
[2022-09-07] MEDS: SENNA 8.6 MG TABLET PO SCH (08:52)
[2022-09-07] MEDS: RANOLAZINE 500 MG PO SCH (08:53)
[2022-09-07] MEDS: MAGNESIUM OXIDE 400 MG TABLET PO SCH (08:53)
[2022-09-07] MEDS: DOCUSATE SODIUM 250 MG CAPSULE PO SCH (08:53)
[2022-09-07] MEDS: polyethylene glycoL 3350 17 GM PACKET PO SCH (08:54)
[2022-09-07] MEDS: SODIUM CHLORIDE FLUSH 0.9% 10 ML SYRINGE IVP SCH ×3 (08:54→23:38)
[2022-09-07] MEDS ORDERED: POTASSIUM PHOSPHATE 15 MMOL in SODIUM CHLORIDE 0.9% 250 ML IV ONE (09:00)
[2022-09-07] MEDS: CALCIUM CARBONATE CHEW 500 MG TABLET PO SCH ×2 (09:05→21:06)
--- NOTE | 2022-09-07 11:03 | PROVIDER PROGRESS NOTE ---
Assessment/Plan - Problem List (1) Orthostatic hypotension Assessment/Plan: This patient presented after he slid out of his recliner chair at home due to severe weakness. He did not have syncope. Despite just being in SNF recently for PT and OT rehab, he was very deconditioned, unable to stand after that fall to the ground at home, and his could not lift him. He was brought to the ER by ambulance. He had a"soft" BP, started to get IV fluids, and even midodrine was resumed, which he was on in the past. Despite this, he continues to have a low BP and is still orthostatic today. An Echo was done and showed normal LVEF of 60% We will continue with IV hydration with saline I am also adjusting doses and spreading out his cardiac medications with holding parameters. Will continue to monitor orthostatic VS and manage I changed his midodrine from tid to 3 times daily with meals, so he gets this w hile awake. He may need 10 mg dosing He has started to work with PT and OT 2) Generalized weakness Assessment/Plan: He was only home 1 day from the SNF in [place] and may have gone home weaker than when he left here for that SNF, because he was able to ambulate 10 feet here. Our Physical Therapist, Amairani, was able to communicate in [place] with him directly and learned that when he was at [facility], they had limited [place] speakers and communication was very suboptimal, so they did little rehab with him. Will continue to monitor orthostatic VS and treat with saline and we have resumed his midodrine 3 times daily with meals. With improved BP, he should also have less weakness. Continue working with PT and OT, as he is noticeably stronger by my eval each day since day of admission, and is motivated. Because he has a mild chronic anemia with hemoglobin 10, will check iron stores and B12 and folate levels and replace if low 3) E coli UTI Assessment/Plan: He underwent abdomen and pelvis CT, which did not show strong evidence of pyelonephritis or cystitis (which he did have just 2 months ago when hospit alized here). His urine culture results grew E coli, and sens are available and it is sens to Cephalosporins Blood cultures are neg to date. We changed iv ceftriaxone to Keflex. A 14-day total antibx course is planned for good prostate penetration 4) Leg wounds Assessment/Plan: There is mild edema of his shins, which has been chronic for him. Therefore an Echo was done and showed normal LVEF of 60% He has wounds of both shins and both heels. They are open and are painful. They are covered in bandages A [facility] Wound care consult done. He went to wound care at [facility] yesterday and had "alot done" and feels better. Rec are there from [facility] for our nurses and he will be seen by data support specialist again on 09/11 if he is still here. 5) Hypnoatremia Assessment/Plan: Na improving very slowly Continue with 0.9 NS IVF. We increased rate yesterday from 83cc/hr to 100cc/hr, now that Echo has shown a normal LVEF Follow BMP daily 6) Hypocalcemia Assessment/Plan: We are replacing with TUMS daily and following labs 7) Hx Afib Assessment/Plan: He has been in sinus rhythm on telemetry, this admission. Will continue home meds, adjusting dosing. Telemetry was stopped, since HR was stable. - Current Meds Current Meds: Current Medications Generic Name Dose Route Start Last Admin Trade Name Benjamin PRN Reason Stop Dose Admin Acetaminophen 650 mg 09/05/22 17:53 09/07/22 08:51 Acetaminophen 325 Mg Tablet PO 650 mg Q4HR PRN Administration Pain or Fever > 38C (100.4F) Aspirin 81 mg 09/05/22 09:00 09/07/22 08:52 Aspirin Ec 81 Mg Tablet PO 81 mg DAILY ELIECER Administration Atorvastatin Calcium 10 mg 09/04/22 21:00 09/06/22 21:27 Atorvastatin 10 Mg Tablet PO 10 mg QPM ELIECER Administration Calcium Carbonate/Glycine 500 mg 09/04/22 21:00 09/07/22 09:05 Calcium Carbonate Chew 500 Mg Tablet PO 500 mg BID ELIECER Administration Cephalexin 500 mg 09/06/22 08:00 09/07/22 05:30 Cephalexin 250 Mg Capsule PO 500 mg Q6HR ELIECER Administration Cholecalciferol 50 mcg 09/05/22 09:00 09/07/22 08:52 Cholecalciferol 25 Mcg Tablet PO 50 mcg DAILY ELIECER Administration Clopidogrel Bisulfate 75 mg 09/05/22 09:00 09/07/22 08:52 Clopidogrel 75 Mg Tablet PO 75 mg DAILY ELIECER Administration Docusate Sodium 250 - 500 mg 09/07/22 09:00 09/07/22 08:53 Docusate Sodium 250 Mg Capsule PO 250 mg DAILY ELIECER Administration Enoxaparin Sodium 40 mg 09/06/22 09:00 09/07/22 08:52 Enoxaparin 40 Mg/0.4 Ml Syringe SUBQ 40 mg DAILY ELIECER Administration Famotidine 40 mg 09/04/22 21:00 09/07/22 08:52 Famotidine 20 Mg Tablet PO 40 mg BID ELIECER Administration Finasteride 5 mg 09/04/22 09:00 09/07/22 08:52 Finasteride 5 Mg Tablet PO 5 mg DAILY ELIECER Administration Folic Acid 1 mg 09/05/22 09:00 09/07/22 08:52 Folic Acid 1 Mg Tablet PO 1 mg DAILY ELIECER Administration Sodium Chloride 1,000 mls @ 100 mls/hr 09/06/22 07:44 09/07/22 09:05 Normal Saline 0.9% IV 0 mls/hr .Q10H ELIECER Infusion Potassium Phosphate 15 mmol/ 255 mls @ 42.5 mls/hr 09/07/22 09:00 09/07/22 09:05 Sodium Chloride IV 09/07/22 14:59 42.5 mls/hr ONCE ONE Administration Magnesium Oxide 400 mg 09/07/22 08:00 09/07/22 08:53 Magnesium Oxide 400 Mg Tablet PO 400 mg DAILYWM ELIECER Administration Midodrine 5 mg 09/06/22 08:00 09/07/22 08:51 Midodrine 2.5 Mg Tablet PO 5 mg TIDWM [facility] Administration Multivitamins 1 tab 09/05/22 08:00 09/07/22 08:52 Multivitamin Tablet PO 1 tab DAILYWM [facility] Administration Oxycodone HCl 10 mg 09/04/22 14:12 09/07/22 08:50 Oxycodone 5 Mg Tablet PO 10 mg QID PRN Administration PAIN Patient Own Med: 1 each 09/05/22 09:00 09/07/22 08:53 Ranolazine [Ranexa] PO Not Given 500 Mg Tablet DAILY ELIECER Polyethylene Glycol 17 gm 09/06/22 09:00 09/07/22 08:54 Polyethylene Glycol 3350 17 Gm Packet PO Not Given DAILY ELIECER Senna 8.6 - 17.2 mg 09/07/22 09:00 09/07/22 08:52 Senna 8.6 Mg Tablet PO 8.6 mg DAILY ELIECER Administration Sodium Chloride 10 ml 09/04/22 01:00 09/07/22 08:54 Sodium Chloride Flush 0.9% 10 Ml Syringe IVP 10 ml 0100,0900,1700 ELIECER Administration Trazodone HCl 25 mg 09/04/22 21:00 09/06/22 21:27 Trazodone 50 Mg Tablet PO 25 mg QPM ELIECER Administration - Lab Result Fish Bone Diagrams: 09/07/22 04:45 09/07/22 04:45 - Additional Planning My Orders: My Active Orders 09/07/22 08:00 Magnesium Oxide [Mag Ox] 400 mg PO DAILYWM 09/07/22 09:00 Docusate Sodium 250Mg Capsule [Colace 250Mg Capsule] 250 - 500 mg PO DAILY Potassium Phosphate 15 mmol Sodium Chloride 0.9% [Normal Saline 0.9%] 250 ml IV ONCE Senna [Senokot] 8.6 - 17.2 mg PO DAILY 09/07/22 12:00 Metoprolol Succinate [Toprol Xl] 25 mg PO 1200 09/08/22 05:00 BMP - BASIC METABOLIC PANEL [CHEM] DAILYLAB CBC - COMP BLD CT W/AUTO DIFF [HEME] DAILYLAB MAGNESIUM [CHEM] DAILYLAB PHOSPHORUS [CHEM] DAILYLAB 09/09/22 05:00 BMP - BASIC METABOLIC PANEL [CHEM] DAILYLAB CBC - COMP BLD CT W/AUTO DIFF [HEME] DAILYLAB MAGNESIUM [CHEM] DAILYLAB PHOSPHORUS [CHEM] DAILYLAB 09/10/22 05:00 BMP - BASIC METABOLIC PANEL [CHEM] DAILYLAB CBC - COMP BLD CT W/AUTO DIFF [HEME] DAILYLAB Subjective - Subjective Patient Reports: Resting Comfortably, No Complaints Objective Vital Signs: Vital Signs - 24 hr 09/06/22 09/06/22 09/06/22 12:30 15:54 20:45 Temperature 36.3 C L 36.5 C Heart Rate [ 54 L 52 L 53 L Brachial] Respiratory 18 20 20 Rate Blood Pressure 105/66 [Left Brachial artery] Blood Pressure 112/59 L 113/66 [Right Brachial artery] O2 Saturation 96 100 100 09/06/22 09/07/22 09/07/22 23:33 04:47 07:08 Temperature 36.4 C L 36.6 C 36.4 C L Heart Rate [ 52 L 55 L 58 L Brachial] Respiratory 20 16 17 Rate Blood Pressure 107/67 [Left Brachial artery] Blood Pressure 103/68 98/65 [Right Brachial artery] O2 Saturation 97 96 98 Oxygen O2 Source [Without Activity] Room air O2 Source Room air I&O (Last 24 Hrs): Intake and Output Totals x24h 09/05/22 09/06/22 09/07/22 23:59 23:59 23:59 Intake Total 3551.377 3116.666 1106.667 Output Total 1500 1575 1525 Balance 2051.377 1541.666 -418.333 General: Alert, Oriented x3 HEENT: Mucous membr. moist/pink, Other (Pale) Neck: Supple, No JVD Neuro: Alert, Non Focal Cardiovascular: No murmurs Respiratory: No respiratory distress, Breath sounds nml Abdomen: Normal bowel sounds, Soft Extremities: Other (Trace edema of the shins, both shins are wrapped, both heels are wrapped) - Results Results: Laboratory Results WBC 5.8 x10^3/uL (4.8-10.8) 09/07/22 04:45 RBC 3.15 10^6/uL (4.70-6.10) L 09/07/22 04:45 Hgb 9.8 g/dL (14.0-18.0) L 09/07/22 04:45 Hct 28.8 % (42.0-52.0) L 09/07/22 04:45 MCV 91.4 fL (80.0-94.0) 09/07/22 04:45 MCH 31.1 pg (27.0-31.0) H 09/07/22 04:45 MCHC 34.0 g/dL (32.0-36.0) 09/07/22 04:45 RDW 14.0 % (12.0-15.0) 09/07/22 04:45 Plt Count 378 10^3/uL (130-450) 09/07/22 04:45 MPV 8.5 fL (7.4-11.4) 09/07/22 04:45 Neut # (Auto) 3.6 10^3/uL (1.5-6.6) 09/07/22 04:45 Lymph # (Auto) 1.2 10^3/uL (1.5-3.5) L 09/07/22 04:45 [place] # (Auto) 0.5 10^3/uL (0.0-1.0) 09/07/22 04:45 Eos # (Auto) 0.5 10^3/uL (0.0-0.7) 09/07/22 04:45 Baso # (Auto) 0.1 10^3/uL (0.0-0.1) 09/07/22 04:45 Absolute Nucleated RBC 0.00 x10^3/uL 09/07/22 04:45 Nucleated RBC % 0.0 /100WBC 09/07/22 04:45 PT 13.8 secs (9.9-12.6) H 09/03/22 18:55 INR 1.3 (0.8-1.2) H 09/03/22 18:55 APTT 34.6 secs (24.9-33.3) H 09/03/22 18:55 VBG pH 7.419 (7.31-7.41) H 09/03/22 19:58 Ionized Calcium 1.02 mmol/L (1.15-1.33) L 09/03/22 19:58 Sodium 132 mmol/L (135-145) L 09/07/22 04:45 Potassium 3.7 mmol/L (3.5-5.0) 09/07/22 04:45 Chloride 103 mmol/L (101-111) 09/07/22 04:45 Carbon Dioxide 24 mmol/L (21-32) 09/07/22 04:45 Anion Gap 5.0 (6-13) L 09/07/22 04:45 BUN 5 mg/dL (6-20) L 09/07/22 04:45 Creatinine 0.4 mg/dL (0.6-1.2) L 09/07/22 04:45 Estimated GFR (MDRD) 214 (>89) 09/07/22 04:45 Glucose 65 mg/dL (70-100) L 09/07/22 04:45 Lactic Acid 0.9 mmol/L (0.5-2.2) 09/04/22 05:50 Calcium 7.4 mg/dL (8.5-10.3) L 09/07/22 04:45 Phosphorus 2.4 mg/dL (2.5-4.6) L 09/07/22 04:45 Magnesium 1.5 mg/dL (1.7-2.8) L 09/07/22 04:45 Total Bilirubin 0.8 mg/dL (0.2-1.0) 09/03/22 18:55 AST 17 IU/L (10-42) 09/03/22 18:55 ALT 14 IU/L (10-60) 09/03/22 18:55 Alkaline Phosphatase 94 IU/L (42-121) 09/03/22 18:55 Troponin I High Sens 5.9 ng/L (2.3-19.7) 09/03/22 18:55 Total Protein 5.4 g/dL (6.7-8.2) L 09/03/22 18:55 Albumin 2.2 g/dL (3.2-5.5) L 09/03/22 18:55 Globulin 3.2 g/dL (2.1-4.2) 09/03/22 18:55 Albumin/Globulin Ratio 0.7 (1.0-2.2) L 09/03/22 18:55 Lipase 20 U/L (22-51) L 09/03/22 18:55 Procalcitonin < 0.05 ng/mL (<0.5) 09/03/22 18:55 Urine Color YELLOW 09/03/22 19:25 Urine Clarity HAZY (CLEAR) 09/03/22 19:25 Urine pH 6.0 PH (5.0-7.5) 09/03/22 19:25 Ur Specific [place] 1.025 (1.002-1.030) 09/03/22 19:25 Urine Protein 30 mg/dL (NEGATIVE) H 09/03/22 19:25 Urine Glucose (UA) NEGATIVE mg/dL (NEGATIVE) 09/03/22 19:25 Urine Ketones TRACE mg/dL (NEGATIVE) 09/03/22 19:25 Urine Occult Blood NEGATIVE (NEGATIVE) 09/03/22 19:25 Urine Nitrite POSITIVE (NEGATIVE) H 09/03/22 19:25 Urine Bilirubin NEGATIVE (NEGATIVE) 09/03/22 19:25 Urine Urobilinogen 0.2 (NORMAL) E.U./dL (NORMAL) 09/03/22 19:25 Ur Leukocyte Esterase TRACE (NEGATIVE) H 09/03/22 19:25 Urine RBC 0-5 /HPF (0-5) 09/03/22 19:25 Urine WBC 11-25 /HPF (0-3) H 09/03/22 19:25 Ur Squamous Epith Cells RARE Squamous (<= Few) 09/03/22 19:25 Urine Bacteria Many /HPF (None Seen) H 09/03/22 19:25 Urine Casts 6-10 Hyaline Casts /LPF 09/03/22 19:25 Urine Mucus Moderate Strands 09/03/22 19:25 Ur Microscopic Review INDICATED 09/03/22 19:25 Urine Culture Comments INDICATED 09/03/22 19:25 Nasal Adenovirus (PCR) NOT DETECTED 09/03/22 18:44 Nasal B. parapertussis DNA (PCR) NOT DETECTED 09/03/22 18:44 Nasal Coronavir 229E PCR NOT DETECTED 09/03/22 18:44 Nasal Coronavir HKU1 PCR NOT DETECTED 09/03/22 18:44 Nasal Coronavir NL63 PCR NOT DETECTED 09/03/22 18:44 Nasal Coronavir OC43 PCR NOT DETECTED 09/03/22 18:44 Nasal Enterovir/Rhinovir PCR NOT DETECTED 09/03/22 18:44 Nasal Influenza B PCR NOT DETECTED 09/03/22 18:44 Nasal Influenza A PCR NOT DETECTED 09/03/22 18:44 Nasal Parainfluen 1 PCR NOT DETECTED 09/03/22 18:44 Nasal Parainfluen 2 PCR NOT DETECTED 09/03/22 18:44 Nasal Parainfluen 3 PCR NOT DETECTED 09/03/22 18:44 Nasal Parainfluen 4 PCR NOT DETECTED 09/03/22 18:44 Nasal RSV (PCR) NOT DETECTED 09/03/22 18:44 Nasal B.pertussis DNA PCR NOT DETECTED 09/03/22 18:44 Nasal C.pneumoniae (PCR) NOT DETECTED 09/03/22 18:44 Miky Human Metapneumo PCR NOT DETECTED 09/03/22 18:44 Nasal M.pneumoniae (PCR) NOT DETECTED 09/03/22 18:44 Nasal SARS-CoV-2 (PCR) NOT DETECTED 09/03/22 18:44 - Procedures Procedures: Procedures EXCISION OF L FOOT SUBCU/FASCIA, OPEN APPROACH (07/10/22) EXCISION OF R FOOT SUBCU/FASCIA, OPEN APPROACH (07/10/22) EXCISION OF R LOW LEG SUBCU/FASCIA, OPEN APPROACH (07/10/22)
[2022-09-07] MEDS: SODIUM CHLORIDE 0.9% 1,000 ML IV SCH ×2 (12:15→23:38)
[2022-09-07] MEDS: METOPROLOL SUCCINATE 25 MG TABLET PO SCH (12:16)
[2022-09-07] MEDS: traZODone 50 MG TABLET PO SCH (21:06)
[2022-09-07] MEDS: ATORVASTATIN 10 MG TABLET PO SCH (21:07)
[2022-09-07] MEDS: ZINC OXIDE 20% OINT 30 GM TUBE TOP PRN (23:38)
[2022-09-08] MEDS: oxyCODONE 5 MG TABLET PO PRN ×4 (03:04→21:01)
[2022-09-08] MEDS: cephALEXin 250 MG CAPSULE PO SCH ×3 (05:26→18:35)
[2022-09-08 05:38] LABS: BASOPHILS # (AUTO) 0.1 10^3/uL (0.0-0.1); BASOPHILS % (AUTO) 1.6 %; EOSINOPHILS # (AUTO) 0.3 10^3/uL (0.0-0.7); EOSINOPHILS % (AUTO) 5.1 %; HCT - HEMATOCRIT 30.7 % (42.0-52.0); HGB - HEMOGLOBIN 10.1 g/dL (14.0-18.0); LYMPHOCYTES # (AUTO) 1.1 10^3/uL (1.5-3.5); LYMPHOCYTES % (AUTO) 17.3 %; MEAN CORPUSCULAR HEMOGLOBIN 30.6 pg (27.0-31.0); MEAN CORPUSCULAR HGB CONC 32.9 g/dL (32.0-36.0); MEAN PLATELET VOLUME 8.4 fL (7.4-11.4); MONOCYTES # (AUTO) 0.5 10^3/uL (0.0-1.0); MONOCYTES % (AUTO) 8.2 %; NEUTROPHILS # (AUTO) 4.3 10^3/uL (1.5-6.6); NEUTROPHILS % (AUTO) 67.3 %; PLT - PLATELET COUNT 404 10^3/uL (130-450); WHITE BLOOD COUNT 6.3 x10^3/uL (4.8-10.8)
[2022-09-08 06:18] LABS: FOLATE 21.71 ng/mL (5.90 - >24.8)
[2022-09-08 06:40] LABS: % IRON SATURATION 32 % (20-50); BUN - BLOOD UREA NITROGEN < 5 mg/dL (6-20); CALCIUM 7.4 mg/dL (8.5-10.3); CARBON DIOXIDE - CO2 23 mmol/L (21-32); CHLORIDE 104 mmol/L (101-111); CREATININE 0.4 mg/dL (0.6-1.2); GFR - MDRD 214 (>89); GLUCOSE 65 mg/dL (70-100); IRON 32 ug/dL (45-182); MAGNESIUM 1.8 mg/dL (1.7-2.8); PHOSPHORUS 2.6 mg/dL (2.5-4.6); POTASSIUM 3.7 mmol/L (3.5-5.0); SODIUM 133 mmol/L (135-145); TOTAL IRON BINDING CAPACITY 99 ug/dL (250-450); TRANSFERRIN 71 mg/dL (180-329)
[2022-09-08] MEDS: CHOLECALCIFEROL 25 MCG TABLET PO SCH (08:58)
[2022-09-08] MEDS: CALCIUM CARBONATE CHEW 500 MG TABLET PO SCH ×2 (08:58→21:01)
[2022-09-08] MEDS: ACETAMINOPHEN 325 MG TABLET PO PRN (08:58)
[2022-09-08] MEDS: ENOXAPARIN 40 MG/0.4 ML SYRINGE SUBQ SCH (08:58)
[2022-09-08] MEDS: MIDODRINE 2.5 MG TABLET PO SCH ×3 (08:58→16:56)
[2022-09-08] MEDS: SENNA 8.6 MG TABLET PO SCH (08:59)
[2022-09-08] MEDS: MULTIVITAMIN TABLET PO SCH (08:59)
[2022-09-08] MEDS: FAMOTIDINE 20 MG TABLET PO SCH ×2 (08:59→21:01)
[2022-09-08] MEDS: MAGNESIUM OXIDE 400 MG TABLET PO SCH (08:59)
[2022-09-08] MEDS: ASPIRIN EC 81 MG TABLET PO SCH (08:59)
[2022-09-08] MEDS: FOLIC ACID 1 MG TABLET PO SCH (08:59)
[2022-09-08] MEDS: CLOPIDOGREL 75 MG TABLET PO SCH (08:59)
[2022-09-08] MEDS: FINASTERIDE 5 MG TABLET PO SCH (08:59)
[2022-09-08] MEDS: DOCUSATE SODIUM 250 MG CAPSULE PO SCH (08:59)
[2022-09-08] MEDS: SODIUM CHLORIDE 0.9% 1,000 ML IV SCH ×2 (09:05→19:14)
[2022-09-08] MEDS: RANOLAZINE 500 MG PO SCH (09:06)
[2022-09-08] MEDS: SODIUM CHLORIDE FLUSH 0.9% 10 ML SYRINGE IVP SCH ×2 (09:06→16:53)
[2022-09-08] MEDS: polyethylene glycoL 3350 17 GM PACKET PO SCH (09:06)
[2022-09-08] MEDS: METOPROLOL SUCCINATE 25 MG TABLET PO SCH (12:52)
--- NOTE | 2022-09-08 13:23 | PROVIDER PROGRESS NOTE ---
Assessment/Plan - Problem List (1) Orthostatic hypotension Assessment/Plan: This patient presented after he slid out of his recliner chair at home due to severe weakness. He did not have syncope. Despite just being in SNF recently for PT and OT rehab, he was very deconditioned, unable to stand after that fall to the ground at home, and his could not lift him. He was brought to the ER by ambulance. He had a"soft" BP, started to get IV fluids, and even midodrine was resumed, which he was on in the past. Despite this, he continues to have a low BP and is still orthostatic today. An Echo was done and showed normal LVEF of 60% We are continuing with IV hydration with saline, decreasing the rate slightly I am also adjusting doses and spreading out his cardiac medications with holding parameters. Will continue to monitor orthostatic VS and manage I changed his midodrine from tid to 3 times daily with meals, so he gets this while awake. Today, will increase it to 7.5 tid with meals. He has started to work with PT and OT 2) Generalized weakness Assessment/Plan: He was only home 1 day from the SNF in [place] and may have gone home weaker than when he left here for that SNF, because he was able to ambulate 10 feet here. Our Physical Therapist, Amairani, was able to communicate in Korean with him directly and learned that when he was at [facility], they had limited Korean speakers and communication was very suboptimal, so they did little rehab with him. Will continue to monitor orthostatic VS and treat with saline and we have resumed his midodrine 3 times daily with meals. With improved BP, he should also have less weakness. Continue working with PT and OT, as he is noticeably stronger by my eval each day since day of admission, and is motivated. Because he has a mild chronic anemia with hemoglobin 10, will check iron stores and B12 and folate levels and replace if low 3) E coli UTI Assessment/Plan: He underwent abdomen and pelvis CT, which did not show strong evidence of pyelonephritis or cystitis (which he did have just 2 months ago when hospitalized here). His urine culture results grew E coli, and sens are available and it is sens to Cephalosporins Blood cultures are neg to date. We changed iv ceftriaxone to Keflex. A 14-day total antibx course is planned for good prostate penetration 4) Leg wounds Assessment/Plan: There is mild edema of his shins, which has been chronic for him. Therefore an Echo was done and showed normal LVEF of 60% He has wounds of both shins and both heels. They are open and are painful. They are covered in bandages [place] [facility]. [place] went [place] [facility] and had "alot done" and feels better. Rec are there from [facility] for our nurses and he will be seen by software implementation specialist again on 09/11 if he is still here. 5) Hypnoatremia Assessment/Plan: Na improving very slowly Continue with 0.9 NS IVF. We increased rate yesterday from 83cc/hr to 100cc/hr, now that Echo has shown a normal LVEF Follow BMP daily 6) Hypocalcemia Assessment/Plan: We are replacing with TUMS daily and following labs 7) Hx Afib Assessment/Plan: He has been in sinus rhythm on telemetry, this admission. Will continue home meds, adjusting dosing. Telemetry was stopped, since HR was stable. (8) Severe protein calorie malnutrition Assessment/Plan: He has significant muscle wasting and loss of subcu fat. His nutritional intake was less than 50% of recommended for 2 weeks or more. He has had weight loss of greater than 5% in 1 month and is bedridden and has significantly reduced functional capacity since he was last here - Current Meds Current Meds: Current Medications Generic Name Dose Route Start Last Admin Trade Name Freq PRN Reason Stop Dose Admin Acetaminophen 650 mg 09/05/22 17:53 09/08/22 08:58 Acetaminophen 325 Mg Tablet PO 650 mg Q4HR PRN Administration Pain or Fever > 38C (100.4F) Aspirin 81 mg 09/05/22 09:00 09/08/22 08:59 Aspirin Ec 81 Mg Tablet PO 81 mg DAILY ELIECER Administration Atorvastatin Calcium 10 mg 09/04/22 21:00 09/07/22 21:07 Atorvastatin 10 Mg Tablet PO 10 mg QPM ELIECER Administration Calcium Carbonate/Glycine 500 mg 09/04/22 21:00 09/08/22 08:58 Calcium Carbonate Chew 500 Mg Tablet PO 500 mg BID ELIECER Administration Cephalexin 500 mg 09/06/22 08:00 09/08/22 12:51 Cephalexin 250 Mg Capsule PO 500 mg Q6HR ELIECER Administration Cholecalciferol 50 mcg 09/05/22 09:00 09/08/22 08:58 Cholecalciferol 25 Mcg Tablet PO 50 mcg DAILY [facility] Administration Clopidogrel Bisulfate 75 mg 09/05/22 09:00 09/08/22 08:59 Clopidogrel 75 Mg Tablet PO 75 mg DAILY ELIECER Administration Docusate Sodium 250 - 500 mg 09/07/22 09:00 09/08/22 08:59 Docusate Sodium 250 Mg Capsule PO 250 mg DAILY ELIECER Administration Enoxaparin Sodium 40 mg 09/06/22 09:00 09/08/22 08:58 Enoxaparin 40 Mg/0.4 Ml Syringe SUBQ 40 mg DAILY ELIECER Administration Famotidine 40 mg 09/04/22 21:00 09/08/22 08:59 Famotidine 20 Mg Tablet PO 40 mg BID [facility] Administration Finasteride 5 mg 09/04/22 09:00 09/08/22 08:59 Finasteride 5 Mg Tablet PO 5 mg DAILY [facility] Administration Folic Acid 1 mg 09/05/22 09:00 09/08/22 08:59 Folic Acid 1 Mg Tablet PO 1 mg DAILY [facility] Administration Sodium Chloride 1,000 mls @ 100 mls/hr 09/06/22 07:44 09/08/22 09:05 Normal Saline 0.9% IV 100 mls/hr .Q10H [facility] Administration Magnesium Oxide 400 mg 09/07/22 08:00 09/08/22 08:59 Magnesium Oxide 400 Mg Tablet PO 400 mg DAILYWM [facility] Administration Metoprolol Succinate 25 mg 09/07/22 12:00 09/08/22 12:52 Metoprolol Succinate 25 Mg Tablet PO Not Given 1200 [facility] Multi-Ingredient Ointment 1 applic 09/07/22 23:01 09/07/22 23:38 Zinc Oxide 20% Oint 30 Gm Tube TOP 1 applic PRN PRN Administration Skin Care Multivitamins 1 tab 09/05/22 08:00 09/08/22 08:59 Multivitamin Tablet PO 1 tab DAILYWM [facility] Administration Oxycodone HCl 10 mg 09/04/22 14:12 09/08/22 08:58 Oxycodone 5 Mg Tablet PO 10 mg QID PRN Administration PAIN Patient Own Med: 1 each 09/05/22 09:00 09/08/22 09:06 Ranolazine [Ranexa] PO Not Given 500 Mg Tablet DAILY ELIECER Polyethylene Glycol 17 gm 09/06/22 09:00 09/08/22 09:06 Polyethylene Glycol 3350 17 Gm Packet PO 17 gm DAILY ELIECER Administration Senna 8.6 - 17.2 mg 09/07/22 09:00 09/08/22 08:59 Senna 8.6 Mg Tablet PO 8.6 mg DAILY ELIECER Administration Sodium Chloride 10 ml 09/04/22 01:00 09/08/22 09:06 Sodium Chloride Flush 0.9% 10 Ml Syringe IVP 10 ml 0100,0900,1700 ELIECER Administration Trazodone HCl 25 mg 09/04/22 21:00 09/07/22 21:06 Trazodone 50 Mg Tablet PO 50 mg QPM ELIECER Administration - Lab Result Fish Bone Diagrams: 09/08/22 05:30 09/08/22 05:30 - Additional Planning My Orders: My Active Orders 09/07/22 23:01 Zinc Oxide 20% Oint [Zinc Oxide] 1 applic TOP PRN PRN 09/08/22 09:59 Miscellaenous Nursing Order [RC] QSHIFT 09/08/22 17:00 Midodrine [ProAmatine] 7.5 mg PO TIDWM 09/09/22 05:00 BMP - BASIC METABOLIC PANEL [CHEM] DAILYLAB CBC - COMP BLD CT W/AUTO DIFF [HEME] DAILYLAB MAGNESIUM [CHEM] DAILYLAB PHOSPHORUS [CHEM] DAILYLAB 09/10/22 05:00 BMP - BASIC METABOLIC PANEL [CHEM] DAILYLAB CBC - COMP BLD CT W/AUTO DIFF [HEME] DAILYLAB Subjective - Subjective Patient Reports: Resting Comfortably Nursing Reports: Other (Patient told RN and PT that it was painful to stand (because he has bilateral heel wounds)) Objective Vital Signs: Vital Signs - 24 hr 09/07/22 09/07/22 09/07/22 15:54 19:38 23:36 Temperature 36.7 C 36.6 C 36.4 C L Heart Rate [ 59 L 78 61 Brachial] Respiratory 16 16 16 Rate Blood Pressure [Left Brachial artery] Blood Pressure 104/63 108/71 103/66 [Right Brachial artery] O2 Saturation 97 98 96 09/08/22 09/08/22 09/08/22 05:11 07:24 11:06 Temperature 36.6 C 36.5 C 36.3 C L Heart Rate [ 60 65 58 L Brachial] Respiratory 18 16 18 Rate Blood Pressure 84/53 L [Left Brachial artery] Blood Pressure 104/69 103/74 83/55 L [Right Brachial artery] O2 Saturation 95 94 98 09/08/22 12:50 Temperature Heart Rate [ 67 Brachial] Respiratory Rate Blood Pressure [Left Brachial artery] Blood Pressure 91/61 [Right Brachial artery] O2 Saturation Oxygen O2 Source [Without Activity] Room air O2 Source Room air I&O (Last 24 Hrs): Intake and Output Totals x24h 09/06/22 09/07/22 09/08/22 23:59 23:59 23:59 Intake Total 3116.666 3146.667 1305 Output Total 1575 2625 1025 Balance 1541.666 521.667 280 General: Alert, Oriented x3 HEENT: Mucous membr. moist/pink, Other (PAle) Neck: Supple, No JVD Neuro: Alert, Non Focal Cardiovascular: Regular rate, No murmurs Respiratory: No respiratory distress, Breath sounds nml Abdomen: Normal bowel sounds, Soft Extremities: Other (Trace pretibial edema, bandages are dry and intact of bilateral shins and bilateral heels) - Results Results: Laboratory Results WBC 6.3 x10^3/uL (4.8-10.8) 09/08/22 05:30 RBC 3.30 10^6/uL (4.70-6.10) L 09/08/22 05:30 Hgb 10.1 g/dL (14.0-18.0) L 09/08/22 05:30 Hct 30.7 % (42.0-52.0) L 09/08/22 05:30 MCV 93.0 fL (80.0-94.0) 09/08/22 05:30 MCH 30.6 pg (27.0-31.0) 09/08/22 05:30 MCHC 32.9 g/dL (32.0-36.0) 09/08/22 05:30 RDW 14.0 % (12.0-15.0) 09/08/22 05:30 Plt Count 404 10^3/uL (130-450) 09/08/22 05:30 MPV 8.4 fL (7.4-11.4) 09/08/22 05:30 Neut # (Auto) 4.3 10^3/uL (1.5-6.6) 09/08/22 05:30 Lymph # (Auto) 1.1 10^3/uL (1.5-3.5) L 09/08/22 05:30 [place] # (Auto) 0.5 10^3/uL (0.0-1.0) 09/08/22 05:30 Eos # (Auto) 0.3 10^3/uL (0.0-0.7) 09/08/22 05:30 Baso # (Auto) 0.1 10^3/uL (0.0-0.1) 09/08/22 05:30 Absolute Nucleated RBC 0.00 x10^3/uL 09/08/22 05:30 Nucleated RBC % 0.0 /100WBC 09/08/22 05:30 PT 13.8 secs (9.9-12.6) H 09/03/22 18:55 INR 1.3 (0.8-1.2) H 09/03/22 18:55 APTT 34.6 secs (24.9-33.3) H 09/03/22 18:55 VBG pH 7.419 (7.31-7.41) H 09/03/22 19:58 Ionized Calcium 1.02 mmol/L (1.15-1.33) L 09/03/22 19:58 Sodium 133 mmol/L (135-145) L 09/08/22 05:30 Potassium 3.7 mmol/L (3.5-5.0) 09/08/22 05:30 Chloride 104 mmol/L (101-111) 09/08/22 05:30 Carbon Dioxide 23 mmol/L (21-32) 09/08/22 05:30 Anion Gap 6.0 (6-13) 09/08/22 05:30 BUN < 5 mg/dL (6-20) L 09/08/22 05:30 Creatinine 0.4 mg/dL (0.6-1.2) L 09/08/22 05:30 Estimated GFR (MDRD) 214 (>89) 09/08/22 05:30 Glucose 65 mg/dL (70-100) L 09/08/22 05:30 Lactic Acid 0.9 mmol/L (0.5-2.2) 09/04/22 05:50 Calcium 7.4 mg/dL (8.5-10.3) L 09/08/22 05:30 Phosphorus 2.6 mg/dL (2.5-4.6) 09/08/22 05:30 Magnesium 1.8 mg/dL (1.7-2.8) 09/08/22 05:30 Iron 32 ug/dL (45-182) L 09/08/22 05:30 TIBC 99 ug/dL (250-450) L 09/08/22 05:30 % Saturation 32 % (20-50) 09/08/22 05:30 Transferrin 71 mg/dL (180-329) L 09/08/22 05:30 Total Bilirubin 0.8 mg/dL (0.2-1.0) 09/03/22 18:55 AST 17 IU/L (10-42) 09/03/22 18:55 ALT 14 IU/L (10-60) 09/03/22 18:55 Alkaline Phosphatase 94 IU/L (42-121) 09/03/22 18:55 Troponin I High Sens 5.9 ng/L (2.3-19.7) 09/03/22 18:55 Total Protein 5.4 g/dL (6.7-8.2) L 09/03/22 18:55 Albumin 2.2 g/dL (3.2-5.5) L 09/03/22 18:55 Globulin 3.2 g/dL (2.1-4.2) 09/03/22 18:55 Albumin/Globulin Ratio 0.7 (1.0-2.2) L 09/03/22 18:55 Lipase 20 U/L (22-51) L 09/03/22 18:55 Vitamin B12 244 pg/mL (180-914) 09/08/22 05:30 Folate 21.71 ng/mL (5.90 - >24.8) 09/08/22 05:30 Procalcitonin < 0.05 ng/mL (<0.5) 09/03/22 18:55 Urine Color YELLOW 09/03/22 19:25 Urine Clarity HAZY (CLEAR) 09/03/22 19:25 Urine pH 6.0 PH (5.0-7.5) 09/03/22 19:25 Ur Specific [place] 1.025 (1.002-1.030) 09/03/22 19:25 Urine Protein 30 mg/dL (NEGATIVE) H 09/03/22 19:25 Urine Glucose (UA) NEGATIVE mg/dL (NEGATIVE) 09/03/22 19:25 Urine Ketones TRACE mg/dL (NEGATIVE) 09/03/22 19:25 Urine Occult Blood NEGATIVE (NEGATIVE) 09/03/22 19:25 Urine Nitrite POSITIVE (NEGATIVE) H 09/03/22 19:25 Urine Bilirubin NEGATIVE (NEGATIVE) 09/03/22 19:25 Urine Urobilinogen 0.2 (NORMAL) E.U./dL (NORMAL) 09/03/22 19:25 Ur Leukocyte Esterase TRACE (NEGATIVE) H 09/03/22 19:25 Urine RBC 0-5 /HPF (0-5) 09/03/22 19:25 Urine WBC 11-25 /HPF (0-3) H 09/03/22 19:25 Ur Squamous Epith Cells RARE Squamous (<= Few) 09/03/22 19:25 Urine Bacteria Many /HPF (None Seen) H 09/03/22 19:25 Urine Casts 6-10 Hyaline Casts /LPF 09/03/22 19:25 Urine Mucus Moderate Strands 09/03/22 19:25 Ur Microscopic Review INDICATED 09/03/22 19:25 Urine Culture Comments INDICATED 09/03/22 19:25 Nasal Adenovirus (PCR) NOT DETECTED 09/03/22 18:44 Nasal B. parapertussis DNA (PCR) NOT DETECTED 09/03/22 18:44 Nasal Coronavir 229E PCR NOT DETECTED 09/03/22 18:44 Nasal Coronavir HKU1 PCR NOT DETECTED 09/03/22 18:44 Nasal Coronavir NL63 PCR NOT DETECTED 09/03/22 18:44 Nasal Coronavir OC43 PCR NOT DETECTED 09/03/22 18:44 Nasal Enterovir/Rhinovir PCR NOT DETECTED 09/03/22 18:44 Nasal Influenza B PCR NOT DETECTED 09/03/22 18:44 Nasal Influenza A PCR NOT DETECTED 09/03/22 18:44 Nasal Parainfluen 1 PCR NOT DETECTED 09/03/22 18:44 Nasal Parainfluen 2 PCR NOT DETECTED 09/03/22 18:44 Nasal Parainfluen 3 PCR NOT DETECTED 09/03/22 18:44 Nasal Parainfluen 4 PCR NOT DETECTED 09/03/22 18:44 Nasal RSV (PCR) NOT DETECTED 09/03/22 18:44 Nasal B.pertussis DNA PCR NOT DETECTED 09/03/22 18:44 Nasal C.pneumoniae (PCR) NOT DETECTED 09/03/22 18:44 Miky Human Metapneumo PCR NOT DETECTED 09/03/22 18:44 Nasal M.pneumoniae (PCR) NOT DETECTED 09/03/22 18:44 Nasal SARS-CoV-2 (PCR) NOT DETECTED 09/03/22 18:44 - Procedures Procedures: Procedures EXCISION OF L FOOT SUBCU/FASCIA, OPEN APPROACH (07/10/22) EXCISION OF R FOOT SUBCU/FASCIA, OPEN APPROACH (07/10/22) EXCISION OF R LOW LEG SUBCU/FASCIA, OPEN APPROACH (07/10/22)
[2022-09-08] MEDS: ATORVASTATIN 10 MG TABLET PO SCH (21:01)
[2022-09-08] MEDS: traZODone 50 MG TABLET PO SCH (21:01)
[2022-09-09] MEDS: SODIUM CHLORIDE FLUSH 0.9% 10 ML SYRINGE IVP SCH ×3 (00:28→17:34)
[2022-09-09] MEDS: cephALEXin 250 MG CAPSULE PO SCH ×5 (00:45→23:31)
[2022-09-09] MEDS: ACETAMINOPHEN 325 MG TABLET PO PRN ×2 (00:58→15:12)
[2022-09-09] MEDS: oxyCODONE 5 MG TABLET PO PRN ×4 (03:06→20:59)
[2022-09-09 05:59] LABS: BASOPHILS # (AUTO) 0.1 10^3/uL (0.0-0.1); BASOPHILS % (AUTO) 1.5 %; EOSINOPHILS # (AUTO) 0.4 10^3/uL (0.0-0.7); HCT - HEMATOCRIT 28.7 % (42.0-52.0); HGB - HEMOGLOBIN 9.5 g/dL (14.0-18.0); LYMPHOCYTES # (AUTO) 1.2 10^3/uL (1.5-3.5); LYMPHOCYTES % (AUTO) 20.3 %; MEAN CORPUSCULAR HEMOGLOBIN 30.7 pg (27.0-31.0); MEAN CORPUSCULAR HGB CONC 33.1 g/dL (32.0-36.0); MEAN CORPUSCULAR VOLUME 92.9 fL (80.0-94.0); MEAN PLATELET VOLUME 8.7 fL (7.4-11.4); MONOCYTES # (AUTO) 0.5 10^3/uL (0.0-1.0); MONOCYTES % (AUTO) 8.4 %; NEUTROPHILS # (AUTO) 3.7 10^3/uL (1.5-6.6); NEUTROPHILS % (AUTO) 63.3 %; PLT - PLATELET COUNT 381 10^3/uL (130-450); RED BLOOD COUNT 3.09 10^6/uL (4.70-6.10); RED CELL DISTRIBUTION WIDTH 14.4 % (12.0-15.0); WHITE BLOOD COUNT 5.9 x10^3/uL (4.8-10.8)
[2022-09-09] MEDS: SODIUM CHLORIDE 0.9% 1,000 ML IV SCH ×3 (06:12→17:33)
[2022-09-09 06:17] LABS: BUN - BLOOD UREA NITROGEN < 5 mg/dL (6-20); CALCIUM 7.4 mg/dL (8.5-10.3); CARBON DIOXIDE - CO2 26 mmol/L (21-32); CHLORIDE 103 mmol/L (101-111); CREATININE 0.5 mg/dL (0.6-1.2); GFR - MDRD 165 (>89); GLUCOSE 69 mg/dL (70-100); MAGNESIUM 1.8 mg/dL (1.7-2.8); PHOSPHORUS 2.6 mg/dL (2.5-4.6); POTASSIUM 3.6 mmol/L (3.5-5.0); SODIUM 132 mmol/L (135-145)
[2022-09-09] MEDS: MAGNESIUM OXIDE 400 MG TABLET PO SCH (08:34)
[2022-09-09] MEDS: MIDODRINE 2.5 MG TABLET PO SCH ×3 (08:34→17:34)
[2022-09-09] MEDS: FOLIC ACID 1 MG TABLET PO SCH (08:34)
[2022-09-09] MEDS: CLOPIDOGREL 75 MG TABLET PO SCH (08:34)
[2022-09-09] MEDS: FINASTERIDE 5 MG TABLET PO SCH (08:35)
[2022-09-09] MEDS: DOCUSATE SODIUM 250 MG CAPSULE PO SCH (08:35)
[2022-09-09] MEDS: ASPIRIN EC 81 MG TABLET PO SCH (08:35)
[2022-09-09] MEDS: CALCIUM CARBONATE CHEW 500 MG TABLET PO SCH ×2 (08:35→20:56)
[2022-09-09] MEDS: SENNA 8.6 MG TABLET PO SCH (08:35)
[2022-09-09] MEDS: FAMOTIDINE 20 MG TABLET PO SCH ×2 (08:35→20:56)
[2022-09-09] MEDS: MULTIVITAMIN TABLET PO SCH (08:35)
[2022-09-09] MEDS: polyethylene glycoL 3350 17 GM PACKET PO SCH (08:36)
[2022-09-09] MEDS: ENOXAPARIN 40 MG/0.4 ML SYRINGE SUBQ SCH (08:36)
[2022-09-09] MEDS: CHOLECALCIFEROL 25 MCG TABLET PO SCH (08:38)
[2022-09-09] MEDS: RANOLAZINE 500 MG PO SCH (08:42)
[2022-09-09] MEDS: METOPROLOL SUCCINATE 25 MG TABLET PO SCH (12:42)
--- NOTE | 2022-09-09 13:20 | PROVIDER PROGRESS NOTE ---
Assessment/Plan - Problem List (1) Orthostatic hypotension Assessment/Plan: This patient presented after he slid out of his recliner chair at home due to severe weakness. He did not have syncope. Despite just being in SNF recently for PT and OT rehab, he was very deconditioned, unable to stand after that fall to the ground at home, and his could not lift him. He was brought to the ER by ambulance. He had a"soft" BP, started to get IV fluids, and even midodrine was resumed, which he was on in the past. Despite this, he continues to have a Hypotension and orthostatic hypotension, which makes him dizzy. An Echo was done and showed normal LVEF of 60% We are continuing with IV hydration with saline, decreasing the rate slightly I am also adjusting doses and spreading out his cardiac medications with holding parameters. Will continue to monitor orthostatic VS and manage I changed his midodrine from tid to 3 times daily with meals, so he gets this while awake. Yesterday, we increased Midodrine from 5mg to 7.5mg tid with meals. He may need an increase of Midodrine to 10 mg tid with meals starting tomorrow He has started to work with PT and OT, but is hampered by low BP 2) Generalized weakness Assessment/Plan: He was only home 1 day from the SNF in [place] and probably went home weaker than when he left here for that SNF, because he was able to ambulate 10 feet here. Our Physical Therapist, Amairani, was able to communicate in Malian with him directly and learned that when he was at [facility], they had limited Malian speakers and communication was very suboptimal, so they did little rehab with him. Because he has a mild chronic anemia with hemoglobin 10, will check iron stores and B12 and folate levels and replace if low Will continue to monitor orthostatic VS and treat with saline and we have resumed his midodrine 3 times daily with meals. With improved BP, he should also have less weakness. Continue working with PT and OT, as he is noticeably stronger by my deandre each day since day of admission, and is motivated. He agrees to go to a SNF again, but [place] is reviewing this request. After a SNF, he wants to go home, not to a long-term care facility. Social Work is hopefully helping him and his arrange for caregivers at home and to get all the equipment he will need. 3) E coli UTI Assessment/Plan: He underwent abdomen and pelvis CT, which did not show strong evidence of pyelonephritis or cystitis (he had cystitis just 2 months ago when hospitalized here). His urine culture results grew E coli, and sens are available and it is sens to Cephalosporins Blood cultures are neg to date. We changed iv ceftriaxone to Keflex. A 14-day total antibx course is planned for good prostate penetration 4) Leg wounds Assessment/Plan: There is mild edema of his shins, which has been chronic for him. Therefore an Echo was done and showed normal LVEF of 60% He has wounds of both shins and both heels. They are open and are painful. They are covered in bandages A [facility] [place] Wound care consult done. He went to wound care at [facility] [place] on 09/06 and had "alot done" and feels better. Recommendations are there from Christin Muñoz for our nurses and he will be seen by contracts specialist again on 09/11 if he is still here. 5) Hypnoatremia Assessment/Plan: Na improved very slowly, now has plateaued. Continue with 0.9 NS IVF. We increased rate yesterday from 83cc/hr to 100cc/hr, now that Echo has shown a normal LVEF Follow BMP daily 6) Hypocalcemia Assessment/Plan: We are replacing with TUMS daily and following labs 7) Hx Afib Assessment/Plan: He has been in sinus rhythm on telemetry, this admission. Will continue home meds, adjusting dosing. Telemetry was stopped, since HR was stable. (8) Severe protein calorie malnutrition Assessment/Plan: He has significant muscle wasting and loss of subcu fat. His nutritional intake was less than 50% of recommended for 2 weeks or more. He has had weight loss of greater than 5% in 1 month and is bedridden and has significantly reduced functional capacity since he was last here - Current Meds Current Meds: Current Medications Generic Name Dose Route Start Last Admin Trade Name Freq PRN Reason Stop Dose Admin Acetaminophen 650 mg 09/05/22 17:53 09/09/22 00:58 Acetaminophen 325 Mg Tablet PO 650 mg Q4HR PRN Administration Pain or Fever > 38C (100.4F) Aspirin 81 mg 09/05/22 09:00 09/09/22 08:35 Aspirin Ec 81 Mg Tablet PO 81 mg DAILY ELIECER Administration Atorvastatin Calcium 10 mg 09/04/22 21:00 09/08/22 21:01 Atorvastatin 10 Mg Tablet PO 10 mg QPM ELIECER Administration Calcium Carbonate/Glycine 500 mg 09/04/22 21:00 09/09/22 08:35 Calcium Carbonate Chew 500 Mg Tablet PO 500 mg BID ELIECER Administration Cephalexin 500 mg 09/06/22 08:00 09/09/22 12:45 Cephalexin 250 Mg Capsule PO 500 mg Q6HR ELIECER Administration Cholecalciferol 50 mcg 09/05/22 09:00 09/09/22 08:38 Cholecalciferol 25 Mcg Tablet PO 50 mcg DAILY ELIECER Administration Clopidogrel Bisulfate 75 mg 09/05/22 09:00 09/09/22 08:34 Clopidogrel 75 Mg Tablet PO 75 mg DAILY ELIECER Administration Docusate Sodium 250 - 500 mg 09/07/22 09:00 09/09/22 08:35 Docusate Sodium 250 Mg Capsule PO 250 mg DAILY ELIECER Administration Enoxaparin Sodium 40 mg 09/06/22 09:00 09/09/22 08:36 Enoxaparin 40 Mg/0.4 Ml Syringe SUBQ 40 mg DAILY ELIECER Administration Famotidine 40 mg 09/04/22 21:00 09/09/22 08:35 Famotidine 20 Mg Tablet PO 40 mg BID ELIECER Administration Finasteride 5 mg 09/04/22 09:00 09/09/22 08:35 Finasteride 5 Mg Tablet PO 5 mg DAILY ELIECER Administration Folic Acid 1 mg 09/05/22 09:00 09/09/22 08:34 Folic Acid 1 Mg Tablet PO 1 mg DAILY ELIECER Administration Sodium Chloride 1,000 mls @ 100 mls/hr 09/06/22 07:44 09/09/22 08:37 Normal Saline 0.9% IV Not Given .Q10H ELIECER Magnesium Oxide 400 mg 09/07/22 08:00 09/09/22 08:34 Magnesium Oxide 400 Mg Tablet PO 400 mg DAILYWM ELIECER Administration Metoprolol Succinate 25 mg 09/07/22 12:00 09/09/22 12:42 Metoprolol Succinate 25 Mg Tablet PO Not Given 1200 ELIECER Midodrine 7.5 mg 09/08/22 17:00 09/09/22 12:47 Midodrine 2.5 Mg Tablet PO 7.5 mg TIDWM ELIECER Administration Multi-Ingredient Ointment 1 applic 09/07/22 23:01 09/07/22 23:38 Zinc Oxide 20% Oint 30 Gm Tube TOP 1 applic PRN PRN Administration Skin Care Multivitamins 1 tab 09/05/22 08:00 09/09/22 08:35 Multivitamin Tablet PO 1 tab DAILYWM ELIECER Administration Oxycodone HCl 10 mg 09/04/22 14:12 09/09/22 09:12 Oxycodone 5 Mg Tablet PO 10 mg QID PRN Administration PAIN Patient Own Med: 1 each 09/05/22 09:00 09/09/22 08:42 Ranolazine [Ranexa] PO Not Given 500 Mg Tablet DAILY ELIECER Polyethylene Glycol 17 gm 09/06/22 09:00 09/09/22 08:36 Polyethylene Glycol 3350 17 Gm Packet PO 17 gm DAILY ELIECER Administration Senna 8.6 - 17.2 mg 09/07/22 09:00 09/09/22 08:35 Senna 8.6 Mg Tablet PO 8.6 mg DAILY ELIECER Administration Sodium Chloride 10 ml 09/04/22 01:00 09/09/22 08:36 Sodium Chloride Flush 0.9% 10 Ml Syringe IVP 10 ml 0100,0900,1700 ELIECER Administration Trazodone HCl 25 mg 09/04/22 21:00 09/08/22 21:01 Trazodone 50 Mg Tablet PO 25 mg QPM ELIECER Administration - Lab Result Fish Bone Diagrams: 09/09/22 05:36 09/09/22 05:36 - Additional Planning My Orders: My Active Orders 09/08/22 17:00 Midodrine [ProAmatine] 7.5 mg PO TIDWM 09/10/22 05:00 BMP - BASIC METABOLIC PANEL [CHEM] DAILYLAB CBC - COMP BLD CT W/AUTO DIFF [HEME] DAILYLAB Subjective - Subjective Patient Reports: Resting Comfortably, No Complaints Nursing Reports: Other (Appears fatigued. He would not stand up to do ort hostatic check standing because of severe dizziness.) Objective Vital Signs: Vital Signs - 24 hr 09/08/22 09/08/22 09/09/22 15:56 21:00 00:19 Temperature 37.3 C 36.8 C 36.3 C L Heart Rate [ 63 67 65 Brachial] Respiratory 16 16 18 Rate Blood Pressure 106/70 113/66 94/62 [Right Brachial artery] O2 Saturation 97 99 97 09/09/22 09/09/22 09/09/22 03:05 04:55 07:43 Temperature 36.8 C 36.4 C L Heart Rate [ 78 68 71 Brachial] Respiratory 18 16 Rate Blood Pressure 113/77 97/61 105/72 [Right Brachial artery] O2 Saturation 97 97 Oxygen O2 Source [Without Activity] Room air O2 Source Room air I&O (Last 24 Hrs): Intake and Output Totals x24h 09/07/22 09/08/22 09/09/22 23:59 23:59 23:59 Intake Total 3146.667 2775 1000 Output Total 2625 1625 600 Balance 550.479 4649 400 General: Alert, Oriented x3, Other (Very pale) HEENT: Mucous membr. moist/pink Neck: Supple, No JVD Neuro: Alert, Non Focal Cardiovascular: Regular rate, No murmurs Respiratory: No respiratory distress, Breath sounds nml Abdomen: Normal bowel sounds, Soft Extremities: No clubbing, Other (Trace pretibial edema, both shins are wrapped and both heels are wrapped) - Results Results: Laboratory Results WBC 5.9 x10^3/uL (4.8-10.8) 09/09/22 05:36 RBC 3.09 10^6/uL (4.70-6.10) L 09/09/22 05:36 Hgb 9.5 g/dL (14.0-18.0) L 09/09/22 05:36 Hct 28.7 % (42.0-52.0) L 09/09/22 05:36 MCV 92.9 fL (80.0-94.0) 09/09/22 05:36 MCH 30.7 pg (27.0-31.0) 09/09/22 05:36 MCHC 33.1 g/dL (32.0-36.0) 09/09/22 05:36 RDW 14.4 % (12.0-15.0) 09/09/22 05:36 Plt Count 381 10^3/uL (130-450) 09/09/22 05:36 MPV 8.7 fL (7.4-11.4) 09/09/22 05:36 Neut # (Auto) 3.7 10^3/uL (1.5-6.6) 09/09/22 05:36 Lymph # (Auto) 1.2 10^3/uL (1.5-3.5) L 09/09/22 05:36 [place] # (Auto) 0.5 10^3/uL (0.0-1.0) 09/09/22 05:36 Eos # (Auto) 0.4 10^3/uL (0.0-0.7) 09/09/22 05:36 Baso # (Auto) 0.1 10^3/uL (0.0-0.1) 09/09/22 05:36 Absolute Nucleated RBC 0.00 x10^3/uL 09/09/22 05:36 Nucleated RBC % 0.0 /100WBC 09/09/22 05:36 PT 13.8 secs (9.9-12.6) H 09/03/22 18:55 INR 1.3 (0.8-1.2) H 09/03/22 18:55 APTT 34.6 secs (24.9-33.3) H 09/03/22 18:55 VBG pH 7.419 (7.31-7.41) H 09/03/22 19:58 Ionized Calcium 1.02 mmol/L (1.15-1.33) L 09/03/22 19:58 Sodium 132 mmol/L (135-145) L 09/09/22 05:36 Potassium 3.6 mmol/L (3.5-5.0) 09/09/22 05:36 Chloride 103 mmol/L (101-111) 09/09/22 05:36 Carbon Dioxide 26 mmol/L (21-32) 09/09/22 05:36 Anion Gap 3.0 (6-13) L 09/09/22 05:36 BUN < 5 mg/dL (6-20) L 09/09/22 05:36 Creatinine 0.5 mg/dL (0.6-1.2) L 09/09/22 05:36 Estimated GFR (MDRD) 165 (>89) 09/09/22 05:36 Glucose 69 mg/dL (70-100) L 09/09/22 05:36 Lactic Acid 0.9 mmol/L (0.5-2.2) 09/04/22 05:50 Calcium 7.4 mg/dL (8.5-10.3) L 09/09/22 05:36 Phosphorus 2.6 mg/dL (2.5-4.6) 09/09/22 05:36 Magnesium 1.8 mg/dL (1.7-2.8) 09/09/22 05:36 Iron 32 ug/dL (45-182) L 09/08/22 05:30 TIBC 99 ug/dL (250-450) L 09/08/22 05:30 % Saturation 32 % (20-50) 09/08/22 05:30 Transferrin 71 mg/dL (180-329) L 09/08/22 05:30 Total Bilirubin 0.8 mg/dL (0.2-1.0) 09/03/22 18:55 AST 17 IU/L (10-42) 09/03/22 18:55 ALT 14 IU/L (10-60) 09/03/22 18:55 Alkaline Phosphatase 94 IU/L (42-121) 09/03/22 18:55 Troponin I High Sens 5.9 ng/L (2.3-19.7) 09/03/22 18:55 Total Protein 5.4 g/dL (6.7-8.2) L 09/03/22 18:55 Albumin 2.2 g/dL (3.2-5.5) L 09/03/22 18:55 Globulin 3.2 g/dL (2.1-4.2) 09/03/22 18:55 Albumin/Globulin Ratio 0.7 (1.0-2.2) L 09/03/22 18:55 Lipase 20 U/L (22-51) L 09/03/22 18:55 Vitamin B12 244 pg/mL (180-914) 09/08/22 05:30 Folate 21.71 ng/mL (5.90 - >24.8) 09/08/22 05:30 Procalcitonin < 0.05 ng/mL (<0.5) 09/03/22 18:55 Urine Color YELLOW 09/03/22 19:25 Urine Clarity HAZY (CLEAR) 09/03/22 19:25 Urine pH 6.0 PH (5.0-7.5) 09/03/22 19:25 Ur Specific [place] 1.025 (1.002-1.030) 09/03/22 19:25 Urine Protein 30 mg/dL (NEGATIVE) H 09/03/22 19:25 Urine Glucose (UA) NEGATIVE mg/dL (NEGATIVE) 09/03/22 19:25 Urine Ketones TRACE mg/dL (NEGATIVE) 09/03/22 19:25 Urine Occult Blood NEGATIVE (NEGATIVE) 09/03/22 19: Urine Nitrite POSITIVE (NEGATIVE) H 09/03/22 19: Urine Bilirubin NEGATIVE (NEGATIVE) 09/03/22 19:25 Urine Urobilinogen 0.2 (NORMAL) E.U./dL (NORMAL) 09/03/22 19:25 Ur Leukocyte Esterase TRACE (NEGATIVE) H 09/03/22 19:25 Urine RBC 0-5 /HPF (0-5) 09/03/22 19:25 Urine WBC 11-25 /HPF (0-3) H 09/03/22 19:25 Ur Squamous Epith Cells RARE Squamous (<= Few) 09/03/22 19:25 Urine Bacteria Many /HPF (None Seen) H 09/03/22 19:25 Urine Casts 6-10 Hyaline Casts /LPF 09/03/22 19:25 Urine Mucus Moderate Strands 09/03/22 19:25 Ur Microscopic Review INDICATED 09/03/22 19:25 Urine Culture Comments INDICATED 09/03/22 19:25 Nasal Adenovirus (PCR) NOT DETECTED 09/03/22 18:44 Nasal B. parapertussis DNA (PCR) NOT DETECTED 09/03/22 18:44 Nasal Coronavir 229E PCR NOT DETECTED 09/03/22 18:44 Nasal Coronavir HKU1 PCR NOT DETECTED 09/03/22 18:44 Nasal Coronavir NL63 PCR NOT DETECTED 09/03/22 18:44 Nasal Coronavir OC43 PCR NOT DETECTED 09/03/22 18:44 Nasal Enterovir/Rhinovir PCR NOT DETECTED 09/03/22 18:44 Nasal Influenza B PCR NOT DETECTED 09/03/22 18:44 Nasal Influenza A PCR NOT DETECTED 09/03/22 18:44 Nasal Parainfluen 1 PCR NOT DETECTED 09/03/22 18:44 Nasal Parainfluen 2 PCR NOT DETECTED 09/03/22 18:44 Nasal Parainfluen 3 PCR NOT DETECTED 09/03/22 18:44 Nasal Parainfluen 4 PCR NOT DETECTED 09/03/22 18:44 Nasal RSV (PCR) NOT DETECTED 09/03/22 18:44 Nasal B.pertussis DNA PCR NOT DETECTED 09/03/22 18:44 Nasal C.pneumoniae (PCR) NOT DETECTED 09/03/22 18:44 Miky Human Metapneumo PCR NOT DETECTED 09/03/22 18:44 Nasal M.pneumoniae (PCR) NOT DETECTED 09/03/22 18:44 Nasal SARS-CoV-2 (PCR) NOT DETECTED 09/03/22 18:44 - Procedures Procedures: Procedures EXCISION OF L FOOT SUBCU/FASCIA, OPEN APPROACH (07/10/22) EXCISION OF R FOOT SUBCU/FASCIA, OPEN APPROACH (07/10/22) EXCISION OF R LOW LEG SUBCU/FASCIA, OPEN APPROACH (07/10/22)
[2022-09-09] MEDS: traZODone 50 MG TABLET PO SCH (20:56)
[2022-09-09] MEDS: ATORVASTATIN 10 MG TABLET PO SCH (20:57)
[2022-09-10] MEDS: SODIUM CHLORIDE FLUSH 0.9% 10 ML SYRINGE IVP SCH ×4 (00:24→23:33)
[2022-09-10] MEDS: oxyCODONE 5 MG TABLET PO PRN ×4 (03:12→20:56)
[2022-09-10] MEDS: SODIUM CHLORIDE 0.9% 1,000 ML IV SCH ×3 (03:13→22:43)
[2022-09-10 05:21] LABS: BASOPHILS # (AUTO) 0.1 10^3/uL (0.0-0.1); EOSINOPHILS # (AUTO) 0.4 10^3/uL (0.0-0.7); EOSINOPHILS % (AUTO) 6.5 %; HCT - HEMATOCRIT 29.5 % (42.0-52.0); HGB - HEMOGLOBIN 9.9 g/dL (14.0-18.0); LYMPHOCYTES % (AUTO) 16.5 %; MEAN CORPUSCULAR HEMOGLOBIN 30.4 pg (27.0-31.0); MEAN CORPUSCULAR HGB CONC 33.6 g/dL (32.0-36.0); MEAN CORPUSCULAR VOLUME 90.5 fL (80.0-94.0); MEAN PLATELET VOLUME 8.3 fL (7.4-11.4); MONOCYTES # (AUTO) 0.4 10^3/uL (0.0-1.0); MONOCYTES % (AUTO) 6.9 %; NEUTROPHILS # (AUTO) 4.2 10^3/uL (1.5-6.6); NEUTROPHILS % (AUTO) 67.8 %; PLT - PLATELET COUNT 387 10^3/uL (130-450); RED BLOOD COUNT 3.26 10^6/uL (4.70-6.10); RED CELL DISTRIBUTION WIDTH 14.3 % (12.0-15.0); WHITE BLOOD COUNT 6.1 x10^3/uL (4.8-10.8)
[2022-09-10 05:33] LABS: BUN - BLOOD UREA NITROGEN < 5 mg/dL (6-20); CALCIUM 7.6 mg/dL (8.5-10.3); CARBON DIOXIDE - CO2 26 mmol/L (21-32); CHLORIDE 103 mmol/L (101-111); CREATININE 0.4 mg/dL (0.6-1.2); GFR - MDRD 214 (>89); GLUCOSE 73 mg/dL (70-100); POTASSIUM 3.7 mmol/L (3.5-5.0); SODIUM 134 mmol/L (135-145)
[2022-09-10] MEDS: cephALEXin 250 MG CAPSULE PO SCH ×4 (05:59→23:32)
[2022-09-10] MEDS: SENNA 8.6 MG TABLET PO SCH (07:59)
[2022-09-10] MEDS: CLOPIDOGREL 75 MG TABLET PO SCH (07:59)
[2022-09-10] MEDS: CALCIUM CARBONATE CHEW 500 MG TABLET PO SCH ×2 (08:00→20:00)
[2022-09-10] MEDS: DOCUSATE SODIUM 250 MG CAPSULE PO SCH (08:00)
[2022-09-10] MEDS: MIDODRINE 2.5 MG TABLET PO SCH ×3 (08:00→17:07)
[2022-09-10] MEDS: MAGNESIUM OXIDE 400 MG TABLET PO SCH (08:00)
[2022-09-10] MEDS: FINASTERIDE 5 MG TABLET PO SCH (08:00)
[2022-09-10] MEDS: FOLIC ACID 1 MG TABLET PO SCH (08:00)
[2022-09-10] MEDS: CHOLECALCIFEROL 25 MCG TABLET PO SCH (08:00)
[2022-09-10] MEDS: MULTIVITAMIN TABLET PO SCH (08:00)
[2022-09-10] MEDS: ASPIRIN EC 81 MG TABLET PO SCH (08:00)
[2022-09-10] MEDS: FAMOTIDINE 20 MG TABLET PO SCH ×2 (08:00→20:00)
[2022-09-10] MEDS: polyethylene glycoL 3350 17 GM PACKET PO SCH (08:01)
[2022-09-10] MEDS: ENOXAPARIN 40 MG/0.4 ML SYRINGE SUBQ SCH (08:02)
[2022-09-10] MEDS: RANOLAZINE 500 MG PO SCH (08:06)
[2022-09-10] MEDS: METOPROLOL SUCCINATE 25 MG TABLET PO SCH (11:28)
--- NOTE | 2022-09-10 12:49 | PROVIDER PROGRESS NOTE ---
Subjective - Prog Note Date Prog Note Date: 09/10/22 Prog Note Time: 12:47 - Subjective Subjective: I am meeting this patient for the first time during this admission as the new hospitalist service. I took care of him the last time he was here. There is a marked change in this unfortunate gentleman. He is lost quite a bit of weight and nutrition services documents protein calorie malnutrition. He is weaker now than when he left us. When he left as he was able to stand, transfer and pivot and use a walker. He was motivated to get stronger to then go to home. What we have today is a muted, almost depressed individual who is not complying with PT sometimes. Can no longer stand to pivot. In spite of us discontinuing the use of lift to motivate him, he cannot be lifted unless there is a two-person max assist. He is occasionally confused. He will tell us that his arms and legs do not work but when Occupational Therapy sees him he is able to go through the maneuvers of bathing himself using his upper extremities. He is adamant that he will not be permanently placed for long-term care. His is also disabled and sometimes comes in w a wheelchair according to nursing. His insurance company is now letting us know that he no longer meets acute care criteria after today. They also are stating that they will not be funding another fpc facility stay for rehab. As such we now need to make arrangements for the patient is to return to home Current Medications - Current Medications Current Medications: Active Medications Acetaminophen (Acetaminophen 325 Mg Tablet) 650 mg PO Q4HR PRN PRN Reason: Pain or Fever > 38C (100.4F) Last Admin: 09/09/22 15:12 Dose: 650 mg Aspirin (Aspirin Ec 81 Mg Tablet) 81 mg PO DAILY [facility] Last Admin: 09/10/22 08:00 Dose: 81 mg Atorvastatin Calcium (Atorvastatin 10 Mg Tablet) 10 mg PO QPM [facility] Last Admin: 09/09/22 20:57 Dose: 10 mg Calcium Carbonate/Glycine (Calcium Carbonate Chew 500 Mg Tablet) 500 mg PO BID [facility] Last Admin: 09/10/22 08:00 Dose: 500 mg Cephalexin (Cephalexin 250 Mg Capsule) 500 mg PO Q6HR [facility] Last Admin: 09/10/22 11:29 Dose: 500 mg Cholecalciferol (Cholecalciferol 25 Mcg Tablet) 50 mcg PO DAILY [facility] Last Admin: 09/10/22 08:00 Dose: 50 mcg Clopidogrel Bisulfate (Clopidogrel 75 Mg Tablet) 75 mg PO DAILY [facility] Last Admin: 09/10/22 07:59 Dose: 75 mg Diclofenac Sodium (Diclofenac Sodium 1% Gel 50 Gm Tube) 2 gm TOP Q6H PRN PRN Reason: PAIN Docusate Sodium (Docusate Sodium 250 Mg Capsule) 250 - 500 mg PO DAILY [facility] Last Admin: 09/10/22 08:00 Dose: 250 mg Enoxaparin Sodium (Enoxaparin 40 Mg/0.4 Ml Syringe) 40 mg SUBQ DAILY [facility] Last Admin: 09/10/22 08:02 Dose: 40 mg Famotidine (Famotidine 20 Mg Tablet) 40 mg PO BID [facility] Last Admin: 09/10/22 08:00 Dose: 40 mg Finasteride (Finasteride 5 Mg Tablet) 5 mg PO DAILY [facility] Last Admin: 09/10/22 08:00 Dose: 5 mg Folic Acid (Folic Acid 1 Mg Tablet) 1 mg PO DAILY [facility] Last Admin: 09/10/22 08:00 Dose: 1 mg Sodium Chloride (Normal Saline 0.9%) 1,000 mls @ 100 mls/hr IV .Q10H [facility] Last Admin: 09/10/22 12:51 Dose: 100 mls/hr Magnesium Oxide (Magnesium Oxide 400 Mg Tablet) 400 mg PO DAILYWM [facility] Last Admin: 09/10/22 08:00 Dose: 400 mg Metoprolol Succinate (Metoprolol Succinate 25 Mg Tablet) 25 mg PO 1200 [facility] Last Admin: 09/10/22 11:28 Dose: 25 mg Midodrine (Midodrine 2.5 Mg Tablet) 7.5 mg PO TIDWM [facility] Last Admin: 09/10/22 11:29 Dose: 7.5 mg Multi-Ingredient Ointment (Zinc Oxide 20% Oint 30 Gm Tube) 1 applic TOP PRN PRN PRN Reason: Skin Care Last Admin: 09/07/22 23:38 Dose: 1 applic Multivitamins (Multivitamin Tablet) 1 tab PO DAILYWM [facility] Last Admin: 09/10/22 08:00 Dose: 1 tab Oxycodone HCl (Oxycodone 5 Mg Tablet) 10 mg PO QID PRN PRN Reason: PAIN Last Admin: 09/10/22 09:12 Dose: 10 mg Patient Own Med: Ranolazine [Ranexa] 500 Mg Tablet 1 each PO DAILY [facility] Last Admin: 09/10/22 08:06 Dose: Not Given Polyethylene Glycol (Polyethylene Glycol 3350 17 Gm Packet) 17 gm PO DAILY [facility] Last Admin: 09/10/22 08:01 Dose: 17 gm Senna (Senna 8.6 Mg Tablet) 8.6 - 17.2 mg PO DAILY [facility] Last Admin: 09/10/22 07:59 Dose: 8.6 mg Sodium Chloride (Sodium Chloride Flush 0.9% 10 Ml Syringe) 10 ml IVP PRN PRN PRN Reason: NEEDED PER PROVIDER ORDERS Sodium Chloride (Sodium Chloride Flush 0.9% 10 Ml Syringe) 10 ml IVP 0100,0 900,1700 [facility] Last Admin: 09/10/22 08:01 Dose: Not Given Trazodone HCl (Trazodone 50 Mg Tablet) 25 mg PO QPM [facility] Last Admin: 09/09/22 20:56 Dose: 25 mg Aspirin [Aspirin EC] 81 mg PO DAILY 10/21/14 Clopidogrel [Plavix] 75 mg PO DAILY 10/21/14 Diclofenac Sodium [Voltaren Arthritis Pain] 2 gm TP Q6H PRN 07/04/22 Famotidine [Pepcid] 40 mg PO BID 07/04/22 Furosemide [Lasix] 80 mg PO DAILY 09/04/22 Metoprolol Succinate 100 mg PO DAILY 09/04/22 Oxycodone HCl/Acetaminophen [Percocet 10-325 mg Tablet] 1 tab PO QID PRN 09/04/22 lisinopriL [Lisinopril] 40 mg PO DAILY 09/04/22 Objective - Vital Signs/Intake & Output Reviewed Vital Signs: Yes Vital Signs: Vital Signs x48h Temp Pulse Resp BP Pulse Ox 09/10/22 11:39 36.3 C L 09/10/22 11:25 74 17 116/78 92 09/10/22 06:40 36.5 C 75 16 106/71 95 Intake & Output: Intake & Output 09/07/22 09/08/22 09/09/22 09/10/22 23:59 23:59 23:59 23:59 Intake Total 3146.667 2775 3060 1726.667 Output Total 2625 1625 1800 1250 Balance 107.051 8283 1260 476.667 - Objective General Appearance: positive: Alert, Other (Muted affect, quiet, but lucid speech. I am bilingual and able to communicate with the patient adequately. He says that he sometimes just does not have the energy to cooperate with physical therapy.) Eyes Bilateral: positive: PERRL, EOMI ENT: positive: No signs of dehydration Neck: positive: No JVD. negative: Stiff neck Respiratory: positive: No respiratory distress. negative: Wheezes, Rales, Rhonchi Cardiovascular: positive: Regular rate & rhythm Abdomen: positive: Non-tender, No organomegaly, Nml bowel sounds, No distention Skin: positive: Warm, Dry Extremities: positive: Pedal edema (nonpitting large ankles and calves) Neurologic/Psychiatric: positive: CN's nml (2-12), Disoriented to time. negative: Motor nml (can't lift legs up from bed but can move from side to side. can use arms/hands to pull cyn from above, cut food, bring food to mouth. wipe face. wipe hands.) - Lab Results Fish Bones: 09/10/22 05:12 09/10/22 05:12 Other Labs: Lab Results x24hrs 09/10/22 09/10/22 Range/Units 05:12 05:12 WBC 6.1 (4.8-10.8) x10^3/uL RBC 3.26 L (4.70-6.10) 10^6/uL Hgb 9.9 L (14.0-18.0) g/dL Hct 29.5 L (42.0-52.0) % MCV 90.5 (80.0-94.0) fL MCH 30.4 (27.0-31.0) pg MCHC 33.6 (32.0-36.0) g/dL RDW 14.3 (12.0-15.0) % Plt Count 387 (130-450) 10^3/uL MPV 8.3 (7.4-11.4) fL Neut # (Auto) 4.2 (1.5-6.6) 10^3/uL Lymph # (Auto) 1.0 L (1.5-3.5) 10^3/uL [place] # (Auto) 0.4 (0.0-1.0) 10^3/uL Eos # (Auto) 0.4 (0.0-0.7) 10^3/uL Baso # (Auto) 0.1 (0.0-0.1) 10^3/uL Absolute Nucleated RBC 0.00 x10^3/uL Nucleated RBC % 0.0 /100WBC Sodium 134 L (135-145) mmol/L Potassium 3.7 (3.5-5.0) mmol/L Chloride 103 (101-111) mmol/L Carbon Dioxide 26 (21-32) mmol/L Anion Gap 5.0 L (6-13) BUN < 5 L (6-20) mg/dL Creatinine 0.4 L (0.6-1.2) mg/dL Estimated GFR (MDRD) 214 (>89) Glucose 73 (70-100) mg/dL Calcium 7.6 L (8.5-10.3) mg/dL Assessment/Plan - Problem List (1) Orthostatic hypotension Impression: We have tried adjusting his blood pressure medication/cardiac medications and having holding parameters. We gave him IV fluids for hydration. Midodrine has been changed that he gets that right before meals and it is during his waking hours. September 09 midodrine was increased from 5 mg to 7.5 mg 3 times daily with meals. Supine blood pressure 102/67, sitting blood pressure 114/80. He has told the previous hospitalist on service as well as myself that he does not want long-term placement. He only wants to go home now. I have made referral to home health and physical therapy is identifying what equipment he will need. Discharge may have to be tomorrow depending on any last-minute appeal results for more rehab 2) Generalized weakness Assessment/Plan: From prolonged bedrest, orthostatic hypotension, mild chronic anemia. He was only home 1 day from the SNF in [place] and probably went home weaker than when he left here for that SNF, because he was able to ambulate 10 feet here. Our Physical Therapist, Amairani, was able to communicate in [place] with him directly and learned that when he was at [facility], they had limited [place] speakers and communication was very suboptimal, so they did little rehab with him. B12 and folate are normal.Cause of anemia not quite clear. Plan has been adjusting his midodrine, working with physical therapy. At this time may be ready for discharge tomorrow. 3) E coli UTI Assessment/Plan: He underwent abdomen and pelvis CT, which did not show strong evidence of pyelonephritis or cystitis (he had cystitis just 2 months ago when hospitalized here). His urine culture results grew E coli, and sens are available and it is sens to Cephalosporins Blood cultures are neg to date. We changed iv ceftriaxone to Keflex. A 14-day total antibx course is planned for good prostate penetration. Today is day 07/14. 4) Leg wounds Assessment/Plan: There is mild edema of his shins, which has been chronic for him. Therefore an Echo was done and showed normal LVEF of 60% He has wounds of both shins and both heels. They are open and are painful. They are covered in bandages [place] [facility] [facility] and had "alot done" and feels better. Recommendations are there from Christin Muñoz for our nurses and he will be seen by informatics specialist again on 09/11 if he is still here. He will be here tomorrow and hopefully seen before dc to home. 5) Hypnoatremia Assessment/Plan: Na improved very slowly, now has plateaued. Continue with 0.9 NS IVF. We increased rate yesterday from 83cc/hr to 100cc/hr, now that Echo has shown a normal LVEF Follow BMP daily this has not made a difference in his orthostasis. 6) Hypocalcemia Assessment/Plan: We are replacing with TUMS daily and following labs 7) Hx Afib Assessment/Plan: Had been in [facility] throughout his stay so tele dc'd (8) Severe protein calorie malnutrition Assessment/Plan: He has significant muscle wasting and loss of subcu fat. His nutritional intake was less than 50% of recommended for 2 weeks or more. He has had weight loss of greater than 5% in 1 month and is bedridden and has significantly reduced functional capacity since he was last here
[2022-09-10] MEDS: ZINC OXIDE 20% OINT 30 GM TUBE TOP PRN (13:45)
[2022-09-10] MEDS: traZODone 50 MG TABLET PO SCH (20:00)
[2022-09-10] MEDS: ATORVASTATIN 10 MG TABLET PO SCH (20:01)
[2022-09-10] MEDS: ACETAMINOPHEN 325 MG TABLET PO PRN (20:56)
[2022-09-11] MEDS: ACETAMINOPHEN 325 MG TABLET PO PRN ×2 (03:26→09:26)
[2022-09-11] MEDS: oxyCODONE 5 MG TABLET PO PRN ×2 (03:27→09:26)
[2022-09-11] MEDS: cephALEXin 250 MG CAPSULE PO SCH ×2 (05:48→12:00)
[2022-09-11] MEDS: MAGNESIUM OXIDE 400 MG TABLET PO SCH (07:53)
[2022-09-11] MEDS: MIDODRINE 2.5 MG TABLET PO SCH ×2 (07:53→12:00)
[2022-09-11] MEDS: MULTIVITAMIN TABLET PO SCH (07:54)
[2022-09-11] MEDS: FOLIC ACID 1 MG TABLET PO SCH (08:00)
[2022-09-11] MEDS: polyethylene glycoL 3350 17 GM PACKET PO SCH (08:00)
[2022-09-11] MEDS: SENNA 8.6 MG TABLET PO SCH (08:00)
[2022-09-11] MEDS: ENOXAPARIN 40 MG/0.4 ML SYRINGE SUBQ SCH (08:00)
[2022-09-11] MEDS: CHOLECALCIFEROL 25 MCG TABLET PO SCH (08:00)
[2022-09-11] MEDS: CALCIUM CARBONATE CHEW 500 MG TABLET PO SCH (08:00)
[2022-09-11] MEDS: DOCUSATE SODIUM 250 MG CAPSULE PO SCH (08:00)
[2022-09-11] MEDS: ASPIRIN EC 81 MG TABLET PO SCH (08:00)
[2022-09-11] MEDS: SODIUM CHLORIDE FLUSH 0.9% 10 ML SYRINGE IVP SCH (08:01)
[2022-09-11] MEDS: FAMOTIDINE 20 MG TABLET PO SCH (08:01)
[2022-09-11] MEDS: FINASTERIDE 5 MG TABLET PO SCH (08:01)
[2022-09-11] MEDS: CLOPIDOGREL 75 MG TABLET PO SCH (08:01)
[2022-09-11] MEDS: RANOLAZINE 500 MG PO SCH (08:02)
[2022-09-11] MEDS: SODIUM CHLORIDE 0.9% 1,000 ML IV SCH (09:26)
--- NOTE | 2022-09-11 10:22 | Discharge Plan ---
Discharge Plan Problem Reviewed?: Yes Disposition: Home Health Service Condition: Stable Prescriptions: cephALEXin [Keflex] 500 mg PO Q6H #20 cap Diet: Regular Activity Restrictions: Activity as Tolerated (needs complete assist) Shower Restrictions: No Driving Restrictions: Yes (no driving) Assistance Devices: Wheelchair Health Concerns: You were previously admitted to the hospital for low blood pressure, skin infection, and was so weak you needed to be discharged for exercise rehab to a snf facility. It sounds like you did not do well there. There is a language barrier. You were sent home and after 1 day had to come back to our hospital because you slid to the floor at home. We find that you are weaker now than you were the last time we saw you in the hospital. You continue to have low blood pressure and will need to take medication for that. Your insurance company was willing to send you to a different long-term to increase your strength and for rehabilitation but you have declined to do that. You are now being discharged to home. Plan of Treatment: 1. You have declined to go to a long-term for rehab and will return to home requiring 24/7 care. You are completely dependent for bathing, feeding, changing your diaper, etc. 2. We will send home health to see you with nursing, physical therapy, Occupational Therapy, a bath aide and social work. 3. Please have these different people teach your how to take care of you since once their services end; she will be the one that needs to feed you, dress you, bathe you and prevent skiin break down from prolonged laying in one position. 4. We will also send a transition social worker to discuss what future services you may need down the road. For instance conversations need to be proactive with regards to who will take care of you. If you end up hiring people to help take care of you at home, who will you hire and how much will it cost? 5. Please see your primary care provider in follow-up in the next 1 to [address] weeks[address] You have identified Dr. Tim Charles as your doctor. We have started you on medications to raise your blood pressure and he needs to follow-up on your blood pressure once you leave the hospital. He will also need to refill those medications. Care Goals: You wish to remain at home for as long as possible. At this time your blood pressure is still on the low side, and Dr. Charles may need to adjust your medications. Assessment: Patient prefers to speak [place], there is a language barrier, but he understands our conversation since I am able to speak [place] to him. Follow-Up Care: Home Health - RN, Home Health - PT, Home Health - OT No Smoking: If you smoke, Please STOP! Call for help. Follow-up with: Tim Charles, [Primary Care Provider] -
--- NOTE | 2022-09-11 10:36 | DISCHARGE SUMMARY ---
"Discharge Summary Admit Date: 09/03/22 Discharge Date: 09/11/22 Discharging Provider: romy Pizarro MD Primary Care Provider: Tim Charles MD Code Status: Do Not Attempt Resuscitation Condition at Discharge: Stable Discharge Disposition: 06 [facility] - DIAGNOSES Discharge Diagnoses with Status of Each Condition: 1. Generalized weakness 2. Orthostatic hypotension 3. E. coli UTI 4. Venous stasis leg wounds 5. Hyponatremia 6. Hypocalcemia 7. History of atrial fibrillation 8. Severe protein calorie malnutrition 9. Fall at home out of chair - HPI History of Present Illness: 67 y/o M presented with falls and generalized weakness. Pt left the rehab facility yesterday after recent hospitlization for infected leg wounds. Subsequently he was feeling weak and had mechanical falls without LOC or head trauma. he denies cp, sob, palpitation or n/v/d/abd pain - Past Medical History Cardiovascular: reports: Hypertension, High cholesterol, Coronary artery dis ease, Atrial fibrillation (bilateral leg wounds, ), Other Respiratory: reports: None Neuro: reports: None Endocrine/Autoimmune: reports: None GI: reports: None (rell), GERD, Hiatal hernia, Diverticulitis, Other : reports: Retention HEENT: reports: None Psych: reports: None Musculoskeletal: reports: Other Derm: reports: None MRSA Hx?: No - Past Surgical History General: reports: Bowel surgery, Hiatal hernia repair Ortho: reports: Knee replacement - CONSULTS | PROCEDURES Procedures: 1. Chest x-ray without acute cardiopulmonary abnormality 2. Head CT without acute intracranial abnormality 3. Abdomen/pelvis CT showed a collapsed bladder and a [place] in place. No hernias. Kidneys are normal size without hydronephrosis or nephrolithiasis. 4. Blood cultures negative after 5 days 5. Urine culture positive for E. coli resistant to ampicillin, ciprofloxacin, gentamicin, levofloxacin, trimethoprim. Intermediate resistance to Unasyn. It is sensitive to Ancef, cefepime, ceftriaxone. 6. Echocardiogram has a normal left ventricle. Thickness is normal. Ejection fraction 60 to 65%. Right ventricle normal. No significant valvular heart disease. - HOSPITAL COURSE Hospital Course: The patient was noted to have had significant muscle wasting and loss of subcutaneous fat. His nutritional intake was less than 50% of the recommended for the 2 weeks before he came into the hospital and is lost more than 5% of his weight in 1 month. This is resulted in him in increased weakness, he is now bedridden and has significantly reduced functional capacity since he was last here. He worked with physical therapy off and on but was anhedonic, depressed, and much more muted than the last time he was here. We worked adjusting many of his medications for his orthostatic hypotension and he is going to be on midodrine. 8 E. coli UTI was treated with antibiotics. His leg wounds were seen by the wound clinic, Christin Gauthier, and he was getting regular wound care. Hyponatremia slowly improved and echocardiogram showed a normal ejection fraction. Hypocalcemia was treated with supplementation. Even though he has a history of atrial fibrillation he was on telemetry for many days during his stay and he was normal sinus rhythm. He was finally felt to be maximized with his medical care and that we were not can to be able to make his blood pressure any better than it was. We did request a process for him to be transferred to a different senior care facility seems he was very unhappy at the last 1 and this seemed to be a language barrier. The patient clearly deteriorated from when he left here. He was able to stand and actually transition to a chair or transition to a bedside commode. Able to walk 10 feet. Now he cannot even get out of bed and needs a Song lift. However, the patient declined transfer. He did not want to go to acute care rehab. He also declined being permanently placed. We explained to him that he is full care, he cannot really go home safely but he was adamant he was not can to be placed. As such we ordered home health with wound care, PT, O T, bath aide, and social work. We are hoping social work might be able to guide the family to a different decision. At discharge temperature was 36.6. Heart rate 61. Blood pressure 118/78. He is still mildly orthostatic. Supine blood pressure 118/75. Sitting blood pressure 123/87. Standing blood pressure 110/78. But this is much improved from when he was here at the beginning. Respiration is 18. 93% on room air. He is 5 feet 7 inches tall and weighs 83.5 kg. Again, much more muted affect. Last time he was here he was intermittently cheerful, talkative, and engaged in conversation with either nursing, aides or myself and this time he wants the lights off, and to be left alone. Lungs are clear with diminished breath sounds at the bases. Regular rate and rhythm. Abdomen is with a large pannus, but soft, nontender. Last bowel movement was today before he left. He has 1+ edema of ankles and legs. When he was here in the hospital last time he had diffuse anasarca and that is much improved. He is hard of hearing, prefers to speak [place], and cannot sit up on his own. He is a two-person max assist. Greater than 30 minutes was spent coordinating discharge. I have asked the patient to please follow-up with his primary care provider, in the next 1 to 2 weeks. I have also strongly encouraged him to do advance care planning conversations with his with regards to the future of his care needs. - ALLERGIES Allergies/Adverse Reactions: Allergies Allergy/AdvReac Type Severity Reaction Status Date / Time hydrocodone bitartrate * AdvReac Unknown Verified 09/03/22 18:19 [From Vicodin] iron AdvReac Unknown Verified 09/03/22 18:19 lactose AdvReac Unknown Verified 09/04/22 14:44 - MEDICATIONS Home Medications: Ambulatory Orders Medication Instructions Recorded Confirmed Aspirin [Aspirin EC] 81 mg PO DAILY 10/21/14 09/04/22 Clopidogrel [Plavix] 75 mg PO DAILY 10/21/14 09/04/22 Diclofenac Sodium [Voltaren 2 gm TP Q6H PRN 07/04/22 09/04/22 Arthritis Pain] Famotidine [Pepcid] 40 mg PO BID 07/04/22 09/04/22 Atorvastatin [Lipitor] 10 mg PO QPM #0 07/30/22 09/04/22 Calcium Carbonate [Tums (Calcium 500 mg PO BID tablet 07/30/22 09/04/22 Carbonate 500mg)] Cholecalciferol [Vitamin D3] 50 mcg PO DAILY tablet 07/30/22 09/04/22 Folic Acid 1 mg PO DAILY #0 07/30/22 09/04/22 Multivitamin [Theragran] 1 tab PO DAILYWM tablet 07/30/22 09/04/22 Ranolazine [Ranexa] 500 mg PO DAILY #0 07/30/22 09/04/22 traZODone [Desyrel] 25 mg PO QPM tablet 07/30/22 09/04/22 Furosemide [Lasix] 80 mg PO DAILY 09/04/22 09/04/22 Metoprolol Succinate 100 mg PO DAILY 09/04/22 09/04/22 Oxycodone HCl/Acetaminophen 1 tab PO QID PRN 09/04/22 09/04/22 [Percocet 10-325 mg Tablet] lisinopriL [Lisinopril] 40 mg PO DAILY 09/04/22 09/04/22 cephALEXin [Keflex] 500 mg PO Q6H #20 cap 09/10/22 - LABS Result Diagrams: 09/10/22 05:12 09/10/22 05:12"
[2022-09-11] MEDS: METOPROLOL SUCCINATE 25 MG TABLET PO SCH (12:00)
[2022-09-11 12:36] VITALS: BP 118/78
== END 2022-09-11 15:22 | disposition home health service (06) | DRG 641 ==
LOC: ED 18:16 → MS2 22:14 → INTOOBSV 22:14 → OBSVTOIN 09-05 08:26
PROVIDERS: ADMIT Hospitalist; ATTEND Specialist
PROC: 0HBNXZZ Excision of Left Foot Skin, External Approach (ICD-10-PCS; principal; 2022-09-06)
PROC: 0HBKXZZ Excision of Right Lower Leg Skin, External Approach (ICD-10-PCS; 2022-09-06)
PROC: 0HBLXZZ Excision of Left Lower Leg Skin, External Approach (ICD-10-PCS; 2022-09-06)
PROC: 0HBMXZZ Excision of Right Foot Skin, External Approach (ICD-10-PCS; 2022-09-06)
DX: A41.9 Sepsis, unspecified organism (principal); N30.00 Acute cystitis without hematuria; R06.00 Dyspnea, unspecified; E43 Unspecified severe protein-calorie malnutrition; N39.0 Urinary tract infection, site not specified; E87.1 Hypo-osmolality and hyponatremia; L97.921 Non-pressure chronic ulcer of unspecified part of left lower leg limited to breakdown of skin; L97.911 Non-pressure chronic ulcer of unspecified part of right lower leg limited to breakdown of skin; I95.9 Hypotension, unspecified; B96.20 Unspecified Escherichia coli [E. coli] as the cause of diseases classified elsewhere; S81.802A Unspecified open wound, left lower leg, initial encounter; S81.801A Unspecified open wound, right lower leg, initial encounter; X58.XXXA Exposure to other specified factors, initial encounter; S09.90XA Unspecified injury of head, initial encounter; W19.XXXA Unspecified fall, initial encounter; Z20.822 Contact with and (suspected) exposure to COVID-19; R53.1 Weakness; I95.1 Orthostatic hypotension; I87.8 Other specified disorders of veins; E83.51 Hypocalcemia; I10 Essential (primary) hypertension; E78.00 Pure hypercholesterolemia, unspecified; I25.10 Atherosclerotic heart disease of native coronary artery without angina pectoris; I48.91 Unspecified atrial fibrillation; L89.620 Pressure ulcer of left heel, unstageable; L89.890 Pressure ulcer of other site, unstageable; L89.612 Pressure ulcer of right heel, stage 2; L89.152 Pressure ulcer of sacral region, stage 2; Z66 Do not resuscitate; Z68.25 Body mass index [BMI] 25.0-25.9, adult; Z74.01 Bed confinement status
CPT/HCPCS: 36415; 51702; 70450; 71045; 74176; 80048; 80053; 81001; 82330; 82607; 82746; 83540; 83605; 83690; 83735; 84100; 84145; 84466; 84484; 85025; 85610; 85730; 87040; 87086; 87181; 87633; 93306; 96374; 97162; 97164; 97167; 97168; 97530; 97597; 99283; 99285; A9270; J1650; J3370; 81003

== ENCOUNTER 2022-09-11 17:44 | Emergency (ER) | payer MEDICARE ==
--- NOTE | 2022-09-11 17:53 | ED Physician Documentation ---
History of Present Illness - Stated complaint Stated Complaint: BACK PX - History obtained from History obtained from: Patient, EMS - Additonal information Additional information: 67-year-old gentleman was admitted to the hospital on 03 September and discharged today with weakness, UTI, hypotension. He was discharged today, they have recommended SNF stay, but he declined but it sounds like he was very weak at home and he and his could not manage. He felt like he needed to come back to the hospital and he was having some back pain 2. EMS noted his blood pressure to be 69/45. With screen printing machine operator helper, he c/o penile Pain. He is under the impression that he needs some sort of surgery on his kidneys but review of the records and discussion with Dr. Pizarro suggest that he does not need any surgery. He says he was last able to walk several months ago. Review of Systems Ten Systems: 10 systems reviewed and negative Constitutional: denies: Fever, Chills Cardiac: denies: Chest pain / pressure, Palpitations Respiratory: denies: Dyspnea, Cough PD PAST MEDICAL HISTORY - Past Medical History Cardiovascular: Hypertension, High cholesterol, Coronary artery disease, Other Respiratory: None Neuro: None Endocrine/Autoimmune: None GI: GERD, Hiatal hernia, Diverticulitis, Other : Retention HEENT: None Psych: None Musculoskeletal: Other Derm: None - Past Surgical History Past Surgical History: Yes General: Bowel surgery, Hiatal hernia repair Ortho: Knee replacement - Present Medications Home Medications: Ambulatory Orders Medication Instructions Recorded Confirmed Aspirin [Aspirin EC] 81 mg PO DAILY 10/21/14 09/04/22 Clopidogrel [Plavix] 75 mg PO DAILY 10/21/14 09/04/22 Diclofenac Sodium [Voltaren 2 gm TP Q6H PRN 07/04/22 09/04/22 Arthritis Pain] Famotidine [Pepcid] 40 mg PO BID 07/04/22 09/04/22 Atorvastatin [Lipitor] 10 mg PO QPM #0 07/30/22 09/04/22 Calcium Carbonate [Tums (Calcium 500 mg PO BID tablet 07/30/22 09/04/22 Carbonate 500mg)] Cholecalciferol [Vitamin D3] 50 mcg PO DAILY tablet 07/30/22 09/04/22 Folic Acid 1 mg PO DAILY #0 07/30/22 09/04/22 Multivitamin [Theragran] 1 tab PO DAILYWM tablet 07/30/22 09/04/22 Ranolazine [Ranexa] 500 mg PO DAILY #0 07/30/22 09/04/22 traZODone [Desyrel] 25 mg PO QPM tablet 07/30/22 09/04/22 Furosemide [Lasix] 80 mg PO DAILY 09/04/22 09/04/22 Metoprolol Succinate 100 mg PO DAILY 09/04/22 09/04/22 Oxycodone HCl/Acetaminophen 1 tab PO QID PRN 09/04/22 09/04/22 [Percocet 10-325 mg Tablet] lisinopriL [Lisinopril] 40 mg PO DAILY 09/04/22 09/04/22 cephALEXin [Keflex] 500 mg PO Q6H #20 cap 09/10/22 - Allergies Allergies/Adverse Reactions: Allergies Allergy/AdvReac Type Severity Reaction Status Date / Time hydrocodone bitartrate * AdvReac Unknown Verified 09/11/22 17:57 [From Vicodin] iron AdvReac Unknown Verified 09/11/22 17:57 lactose AdvReac Unknown Verified 09/11/22 17:57 - Social History Does the pt smoke?: No Smoking Status: Never smoker Does the pt drink ETOH?: No Does the pt have substance abuse?: No - Immunizations Immunizations are current?: Yes - POLST Patient has POLST: No PD ED PE NORMAL - Vitals Vital signs reviewed: Yes - General General: Alert and oriented X 3, No acute distress - HEENT HEENT: PERRL, EOMI - Neck Neck: Supple, no meningeal sign, No bony TTP, No bruit - Cardiac Cardiac: RRR, No murmur - Respiratory Respiratory: No respiratory distress, Clear bilaterally - Abdomen Abdomen: Normal bowel sounds, Soft, Non tender - Male Male : Other (robledo in place) - Back Back: No CVA TTP, No spinal TTP - Derm Derm: Normal color, Warm and dry - Extremities Extremities: Other (Multiple bruises upper extremities, very weak with no muscle mass in the lower extremities.) - Neuro Neuro: Alert and oriented X 3, Normal speech Results - Vitals Vitals: Vital Signs - 24 hr 09/11/22 09/11/22 09/11/22 17:57 18:08 18:30 Temperature 36.6 C 36.8 C Heart Rate 61 60 60 Respiratory 17 19 18 Rate Blood Pressure 112/70 112/71 128/77 O2 Saturation 98 98 100 09/11/22 09/11/22 09/11/22 19:00 19:30 20:00 Temperature Heart Rate 56 L 68 57 L Respiratory 17 18 18 Rate Blood Pressure 128/77 117/82 H O2 Saturation 96 95 98 09/11/22 09/11/22 09/11/22 20:30 21:30 22:00 Temperature Heart Rate 57 L 58 L 57 L Respiratory 17 17 15 Rate Blood Pressure 126/81 H 113/76 113/90 H O2 Saturation 98 98 97 09/11/22 09/11/22 22:30 23:00 Temperature Heart Rate 57 L 76 Respiratory 16 23 Rate Blood Pressure 121/79 112/81 H O2 Saturation 99 98 Oxygen O2 Source [] Room air O2 Source Room air - EKG (time done) 1755 Rate: Rate (enter#) (61) Rhythm: NSR [place]: Normal Intervals: Normal MD QRS: Low voltage Ischemia: Normal ST segments - Labs Labs: Laboratory Tests 09/11/22 09/11/22 09/11/22 18:41 18:41 18:41 WBC 10.1 RBC 3.80 L Hgb 11.7 L Hct 36.1 L MCV 95.0 H MCH 30.8 MCHC 32.4 RDW 14.9 Plt Count 459 H MPV 8.7 Neut # (Auto) 8.2 H Lymph # (Auto) 0.9 L [place] # (Auto) 0.5 Eos # (Auto) 0.3 Baso # (Auto) 0.1 Absolute Nucleated RBC 0.00 Nucleated RBC % 0.0 Sodium 133 L Potassium 3.5 Chloride 100 L Carbon Dioxide 25 Anion Gap 8.0 BUN 5 L Creatinine 0.4 L Estimated GFR (MDRD) 214 Glucose 81 Lactic Acid 1.5 Calcium 7.9 L Phosphorus 2.3 L Magnesium 1.8 Total Bilirubin 0.6 AST 20 ALT 15 Alkaline Phosphatase 82 Total Protein 5.4 L Albumin 2.2 L Globulin 3.2 Albumin/Globulin Ratio 0.7 L PD MEDICAL DECISION MAKING - ED course ED course: 67yo male returns via EMS. discharged earlier in the day and hospitalist team recommended SNF and pt declined. He was hypotensive prehospital but not here. No new complaints. He is now willing to [facility]. No indication for readmission so boarding in ED pending [facility] RESIDENT eval and hopeful SNF placement. Care to overnight EDMD at shift chg. Departure - Departure Clinical Impression: Hypotension, Non-pressure chronic ulcer of lower leg, limited to breakdown of skin, Generalized weakness, Atrial fibrillation, Hypocalcemia Condition: Stable
[2022-09-11] MEDS ORDERED: SODIUM CHLORIDE 0.9% 1,000 ML IV STA (17:54)
[2022-09-11] MEDS ORDERED: oxyCODONE 5 MG TABLET PO STA (18:05)
[2022-09-11 18:47] LABS: BASOPHILS # (AUTO) 0.1 10^3/uL (0.0-0.1); EOSINOPHILS # (AUTO) 0.3 10^3/uL (0.0-0.7); EOSINOPHILS % (AUTO) 2.6 %; HCT - HEMATOCRIT 36.1 % (42.0-52.0); HGB - HEMOGLOBIN 11.7 g/dL (14.0-18.0); LYMPHOCYTES # (AUTO) 0.9 10^3/uL (1.5-3.5); LYMPHOCYTES % (AUTO) 9.4 %; MEAN CORPUSCULAR HEMOGLOBIN 30.8 pg (27.0-31.0); MEAN CORPUSCULAR HGB CONC 32.4 g/dL (32.0-36.0); MEAN PLATELET VOLUME 8.7 fL (7.4-11.4); MONOCYTES # (AUTO) 0.5 10^3/uL (0.0-1.0); MONOCYTES % (AUTO) 4.8 %; NEUTROPHILS # (AUTO) 8.2 10^3/uL (1.5-6.6); NEUTROPHILS % (AUTO) 81.7 %; PLT - PLATELET COUNT 459 10^3/uL (130-450); RED CELL DISTRIBUTION WIDTH 14.9 % (12.0-15.0); WHITE BLOOD COUNT 10.1 x10^3/uL (4.8-10.8)
[2022-09-11 19:00] LABS: ALBUMIN 2.2 g/dL (3.2-5.5); ALBUMIN/GLOBULIN RATIO 0.7 (1.0-2.2); BILIRUBIN,TOTAL 0.6 mg/dL (0.2-1.0); CALCIUM 7.9 mg/dL (8.5-10.3); CREATININE 0.4 mg/dL (0.6-1.2); MAGNESIUM 1.8 mg/dL (1.7-2.8); PHOSPHORUS 2.3 mg/dL (2.5-4.6); POTASSIUM 3.5 mmol/L (3.5-5.0); TOTAL PROTEIN 5.4 g/dL (6.7-8.2)
[2022-09-11] MEDS ORDERED: CALCIUM CARBONATE CHEW 500 MG TABLET PO STA (19:16)
[2022-09-11] MEDS: oxyCODONE 5 MG TABLET PO PRN (23:04)
[2022-09-11] MEDS: ACETAMINOPHEN 500 MG TABLET PO PRN (23:04)
[2022-09-12] MEDS: oxyCODONE 5 MG TABLET PO PRN ×3 (05:08→23:40)
--- NOTE | 2022-09-12 13:17 | ED Physician Documentation ---
ED Addendum - Addendum Addendum: 09/12/22 13:16 Seen and examined at the bedside with the aid of the drafter refrigeration tablet. He has no new complaints, he still complaining of penile pain. I asked the nurse to give him his as needed pain medication. He has been seen by the foster care social worker, Keyla and she has a few potential places for him to go. He was under the impression that he needed some sort of surgery on his kidneys but I confirmed with chart review and with talking to Dr. Pizarro that he does not need any surgical intervention. He is agreeable to go to a senior care now, Madiha needed a POLST form filled out and I discussed this at length with him using the drafter refrigeration. He is DNR/DNI. He does not want to be on life support, comfort measures only. No prolonged medically assisted nutrition. The form was filled out and signed by him and I.
[2022-09-12] MEDS: ACETAMINOPHEN 500 MG TABLET PO PRN (16:21)
[2022-09-12] MEDS ORDERED: HYDROmorphone 1 MG/ML CARPUJECT IVP STA (17:09)
[2022-09-13] MEDS: ACETAMINOPHEN 500 MG TABLET PO PRN (03:44)
[2022-09-13] MEDS: oxyCODONE 5 MG TABLET PO PRN ×3 (07:50→19:49)
[2022-09-13] MEDS ORDERED: HYDROmorphone 1 MG/ML CARPUJECT IVP STA (10:47)
--- NOTE | 2022-09-13 17:41 | ED Physician Documentation ---
ED Addendum - Addendum Addendum: 09/13/22 17:40 Subjective: No new complaints, still complaining of a lot of penile and back pain. Requested IV pain medication, but we settled on increasing his as needed oxycodone to 10 mg. Objective pale gaunt ill man laying in bed in no distress, calm and cooperative Assessment: Elderly gentleman unable to care for self due to weakness and multiple comorbidities Plan: I called [facility], they cannot authorize a swing or inpatient stay. Unfortunately due to lack of social work coverage it appears likely he will board in the emergency department through the weekend pending SNF placement.
[2022-09-14] MEDS: oxyCODONE 5 MG TABLET PO PRN ×5 (02:20→20:09)
--- NOTE | 2022-09-14 14:35 | ED Physician Documentation ---
ED Addendum - Addendum Addendum: 09/14/22 14:32 Christin Alvarez from wound care called and states the patient had been seen just last couple of days with change of dressing on his sacral wound. She asked that it be left alone and they will plan on changing the dressing on if the patient is still here in the ER. They will follow-up with that otherwise. The patient remained comfortable appearing here in the ER. He had eaten without any problems. He is continued on scheduled medications. Objective: The patient is awake and alert. He is appearing comfortable lying in bed. Able to move extremities well. Limited conversation otherwise. Assessment: Generalized weakness and back pain Plan: Awaiting social work involvement due to issues of placing the patient for rehab or longer term care that is in their purview. However we do not have social work for today and tomorrow so is placement will be more prolonged out of the ER. [place] [facility] [place] [facility] was looking for placement for the patient as well though less likely that they will come up with something over the weekend. 09/14/22 14:35
[2022-09-14] MEDS: ACETAMINOPHEN 500 MG TABLET PO PRN (20:09)
[2022-09-15] MEDS: oxyCODONE 5 MG TABLET PO PRN ×5 (00:10→21:01)
[2022-09-15] MEDS: ACETAMINOPHEN 500 MG TABLET PO PRN (13:06)
--- NOTE | 2022-09-15 13:50 | ED Physician Documentation ---
ED Addendum - Addendum Addendum: 09/15/22 13:49 Subjective: No new complaints, complaining of penile pain and being medicated orally a few times a day. I was in contact yesterday with the wound care nurse, Christin Muñoz who recommends keeping his lower extremity dressings in place and she will replace them later in the week. Objective,: Vital signs unremarkable, he appears chronically but not acutely ill, laying in bed. Assessment: Weak gentleman recovering from recent medical stay, was recommended he go to a SNF but declined and went home and then almost immediately had to come back to the emergency department due to inability to care for self. Plan: I got an update from care management's RN Lucy Rhodes and Dr. Pizarro. Now [facility] is denying all but the first 2 days in the ED and he is under our care pending placement. No social work on this weekend until Friday.
[2022-09-16] MEDS: ACETAMINOPHEN 500 MG TABLET PO PRN ×2 (01:07→08:15)
[2022-09-16] MEDS: oxyCODONE 5 MG TABLET PO PRN ×4 (04:05→22:00)
--- NOTE | 2022-09-16 13:21 | ED Physician Documentation ---
ED Addendum - Addendum Addendum: 09/16/22 13:17 Patient seen and examined at the bedside Subjective: There do not appear to be any new complaints. The patient has intermittently complained of pain to bilateral lower extremities which appears to be chronic in nature. He is typically being medicated with Tylenol or oxycodone. The patient does have a coccyx sore that has been managed by the wound care team. Unfortunately the dressing was dislodged during a bowel movement and linen changes morning so the nursing staff has replaced it. Nursing staff reports that he is eating a fair to modest amount of his meals Patient has developed large amount of dependent edema on his scrotum. No erythema or induration suggestive of infection. No fevers. He does have a [place] that continues to drain adequately mostly clear urine though occasionally there is sediment. Objective: Vital signs without worrisome abnormalities. Assessment: This is a chronically ill and debilitated older gentleman who was recently discharged from the hospital but came back almost immediately unable to be cared for at home by his . He had been previously advised to go to a assisted facility which she declined. Unfortunately he does not meet the criteria for inpatient admission and [facility] has declined any state with the exception of the initial 2 days in the ER. The current recommendation has been made for the patient to go to a long-term care facility and case management/utilization review are working diligently with [facility] to enable this process. However he will remain in the ER for the foreseeable future.
[2022-09-16] MEDS ORDERED: SODIUM CHLORIDE 0.9% 1,000 ML IV STA (14:57)
[2022-09-16] MEDS ORDERED: traZODone 50 MG TABLET PO STA (22:40)
[2022-09-17] MEDS: oxyCODONE 5 MG TABLET PO PRN ×5 (02:15→20:47)
[2022-09-17] MEDS: ACETAMINOPHEN 500 MG TABLET PO PRN (06:10)
[2022-09-17 07:42] LABS: BASOPHILS # (AUTO) 0.1 10^3/uL (0.0-0.1); BASOPHILS % (AUTO) 0.7 %; EOSINOPHILS # (AUTO) 0.4 10^3/uL (0.0-0.7); EOSINOPHILS % (AUTO) 4.1 %; HCT - HEMATOCRIT 32.9 % (42.0-52.0); HGB - HEMOGLOBIN 10.6 g/dL (14.0-18.0); LYMPHOCYTES % (AUTO) 10.6 %; MEAN CORPUSCULAR HEMOGLOBIN 30.1 pg (27.0-31.0); MEAN CORPUSCULAR HGB CONC 32.2 g/dL (32.0-36.0); MEAN CORPUSCULAR VOLUME 93.5 fL (80.0-94.0); MEAN PLATELET VOLUME 8.8 fL (7.4-11.4); MONOCYTES # (AUTO) 0.7 10^3/uL (0.0-1.0); MONOCYTES % (AUTO) 7.1 %; NEUTROPHILS # (AUTO) 7.3 10^3/uL (1.5-6.6); NEUTROPHILS % (AUTO) 77.2 %; PLT - PLATELET COUNT 366 10^3/uL (130-450); RED BLOOD COUNT 3.52 10^6/uL (4.70-6.10); RED CELL DISTRIBUTION WIDTH 16.4 % (12.0-15.0); WHITE BLOOD COUNT 9.5 x10^3/uL (4.8-10.8)
[2022-09-17 07:56] LABS: ALBUMIN 1.9 g/dL (3.2-5.5); ALBUMIN/GLOBULIN RATIO 0.7 (1.0-2.2); BILIRUBIN,TOTAL 0.7 mg/dL (0.2-1.0); CALCIUM 7.5 mg/dL (8.5-10.3); CREATININE 0.4 mg/dL (0.6-1.2); MAGNESIUM 1.5 mg/dL (1.7-2.8); POTASSIUM 3.1 mmol/L (3.5-5.0); TOTAL PROTEIN 4.5 g/dL (6.7-8.2)
--- NOTE | 2022-09-17 23:10 | ED Physician Documentation ---
ED Addendum - Addendum Addendum: 09/17/22 23:07 Subjective: No new complaints, family continue to visit. Nursing staff is attempting to turn Q2 HOURS. Objective,: Vital signs unremarkable, he appears chronically but not acutely ill, laying in bed. Assessment: Weak gentleman continue to board int he ED after recent hopspitalization when he returned home after initially refusing SNF. He returned almost immediatly unable to be cared for at home Plan: Social work contines to work to find appropriate care facility which may be LTC. Does not meet inpatient care criteria. 09/17/22 23:10
[2022-09-18] MEDS: ACETAMINOPHEN 500 MG TABLET PO PRN ×2 (00:49→09:49)
[2022-09-18] MEDS: oxyCODONE 5 MG TABLET PO PRN ×5 (01:06→18:22)
--- NOTE | 2022-09-18 12:31 | ED Physician Documentation ---
ED Addendum - Addendum Addendum: 09/18/22 12:29 Subjective: Patient is alert appears chronically debilitated but otherwise well- appearing. He denies any pain at this time. His is visiting at the bedside. Objective. Vital signs are reviewed over the last 24 hours. His heart rates have ranged in the 80s to the low 100s. He has softer blood pressures in the 90s to 100s. Does have a history of orthostatic hypotension and paroxysmal a- fib. HR sinus on monitor at time of my evaluation Assessment/Plan: Chronically debilitated gentleman who return to the emergency department a week ago after recent discharge for sepsis and generalized weakness. He is known to have orthostatic hypotension, paroxysmal atrial fibrillation, hyponatremia and hypocalcemia. He also has chronic venous stasis leg wound ulcers that are being managed by the wound clinic. ED nursing staff attempting to turn patient every 2 hours. Unfortunately he had previously declined custodial care and within hours of discharge from the hospital he return to the ER. He has not met inpatient hospitalization criteria and social work/utilization review is working to find long-term care placement which may prove quite lengthy. At this time we will resume the patient on his routine scheduled medications with appropriate hold orders. 09/18/22 17:00
[2022-09-18] MEDS ORDERED: DICLOFENAC SODIUM 1% GEL 50 GM TUBE TOP PRN (12:32)
[2022-09-18] MEDS ORDERED: lisinopriL 5 MG TABLET PO STA (12:37)
[2022-09-18] MEDS: METOPROLOL SUCCINATE 50 MG TABLET PO SCH (13:13)
[2022-09-18] MEDS: MAGNESIUM OXIDE 400 MG TABLET PO SCH (13:13)
[2022-09-18] MEDS: ASPIRIN CHEW 81 MG TABLET PO SCH (13:13)
[2022-09-18] MEDS: CLOPIDOGREL 75 MG TABLET PO SCH (13:13)
[2022-09-18] MEDS ORDERED: SODIUM CHLORIDE 0.9% 1,000 ML IV STA (18:46)
[2022-09-18] MEDS: FAMOTIDINE 20 MG TABLET PO SCH (20:50)
[2022-09-18] MEDS: traZODone 50 MG TABLET PO SCH (20:50)
[2022-09-18] MEDS: CALCIUM CARBONATE CHEW 500 MG TABLET PO SCH (20:50)
[2022-09-19] MEDS: oxyCODONE 5 MG TABLET PO PRN ×3 (00:22→13:52)
[2022-09-19] MEDS: FUROSEMIDE 20 MG TABLET PO SCH (07:30)
[2022-09-19] MEDS: CLOPIDOGREL 75 MG TABLET PO SCH (07:30)
[2022-09-19] MEDS: MAGNESIUM OXIDE 400 MG TABLET PO SCH (07:30)
[2022-09-19] MEDS: FAMOTIDINE 20 MG TABLET PO SCH ×2 (07:30→20:35)
[2022-09-19] MEDS: CALCIUM CARBONATE CHEW 500 MG TABLET PO SCH ×2 (07:30→20:35)
[2022-09-19] MEDS: ASPIRIN CHEW 81 MG TABLET PO SCH (07:30)
[2022-09-19] MEDS: METOPROLOL SUCCINATE 50 MG TABLET PO SCH (07:31)
[2022-09-19] MEDS: ACETAMINOPHEN 500 MG TABLET PO PRN (07:31)
[2022-09-19] MEDS: PRENATAL VITAMIN TABLET PO SCH (07:35)
[2022-09-19] MEDS ORDERED: SEVELAMER 800 MG TABLET PO SCH (09:00)
[2022-09-19] MEDS ORDERED: FOLIC ACID 1 MG TABLET PO SCH (09:00)
[2022-09-19] MEDS ORDERED: MULTIVITAMIN TABLET PO SCH (09:00)
--- NOTE | 2022-09-19 17:16 | ED Physician Documentation ---
ED Addendum - Addendum Addendum: 09/19/22 17:10 The patient was signed out to me at change of shift, continuing to pend placement by social work and a longer term care facility. However, the patient's primary doctor, Dr. Charles, was able to get involved and was able to set up a lift for the patient's home and start the process of getting the patient set up with [facility] for home care. The plan and the hope for this patient at this time is that he will be able to have enough services at home to assist him and his that he can be discharged home. However, this process has not been completed today and so the patient will remain in the emergency department. He has had no further issues and has been stable otherwise.
[2022-09-19] MEDS: traZODone 50 MG TABLET PO SCH (20:35)
[2022-09-20] MEDS: oxyCODONE 5 MG TABLET PO PRN ×3 (02:27→15:54)
[2022-09-20] MEDS: MAGNESIUM OXIDE 400 MG TABLET PO SCH (08:07)
[2022-09-20] MEDS: PRENATAL VITAMIN TABLET PO SCH (08:07)
[2022-09-20] MEDS: CALCIUM CARBONATE CHEW 500 MG TABLET PO SCH ×2 (08:07→20:55)
[2022-09-20] MEDS: ASPIRIN CHEW 81 MG TABLET PO SCH (08:07)
[2022-09-20] MEDS: CLOPIDOGREL 75 MG TABLET PO SCH (08:07)
[2022-09-20] MEDS: METOPROLOL SUCCINATE 50 MG TABLET PO SCH (08:08)
[2022-09-20] MEDS: ACETAMINOPHEN 500 MG TABLET PO PRN (08:08)
[2022-09-20] MEDS: FAMOTIDINE 20 MG TABLET PO SCH ×2 (08:08→20:54)
[2022-09-20] MEDS: FUROSEMIDE 20 MG TABLET PO SCH (08:08)
[2022-09-20] MEDS ORDERED: SODIUM CHLORIDE 0.9% 1,000 ML IV STA (20:55)
[2022-09-20] MEDS: traZODone 50 MG TABLET PO SCH (20:55)
[2022-09-21 00:51] LABS: BASOPHILS # (AUTO) 0.1 10^3/uL (0.0-0.1); BASOPHILS % (AUTO) 0.7 %; EOSINOPHILS # (AUTO) 0.4 10^3/uL (0.0-0.7); EOSINOPHILS % (AUTO) 4.4 %; HCT - HEMATOCRIT 32.2 % (42.0-52.0); HGB - HEMOGLOBIN 10.4 g/dL (14.0-18.0); LYMPHOCYTES # (AUTO) 1.3 10^3/uL (1.5-3.5); LYMPHOCYTES % (AUTO) 14.8 %; MEAN CORPUSCULAR HEMOGLOBIN 30.1 pg (27.0-31.0); MEAN CORPUSCULAR HGB CONC 32.3 g/dL (32.0-36.0); MEAN CORPUSCULAR VOLUME 93.3 fL (80.0-94.0); MEAN PLATELET VOLUME 8.9 fL (7.4-11.4); MONOCYTES # (AUTO) 0.8 10^3/uL (0.0-1.0); MONOCYTES % (AUTO) 9.2 %; NEUTROPHILS # (AUTO) 6.4 10^3/uL (1.5-6.6); NEUTROPHILS % (AUTO) 70.7 %; PLT - PLATELET COUNT 336 10^3/uL (130-450); RED BLOOD COUNT 3.45 10^6/uL (4.70-6.10); RED CELL DISTRIBUTION WIDTH 16.8 % (12.0-15.0)
[2022-09-21 01:06] LABS: ALBUMIN 1.8 g/dL (3.2-5.5); ALBUMIN/GLOBULIN RATIO 0.7 (1.0-2.2); CALCIUM 7.4 mg/dL (8.5-10.3); CREATININE 0.4 mg/dL (0.6-1.2); MAGNESIUM 1.6 mg/dL (1.7-2.8); POTASSIUM 3.4 mmol/L (3.5-5.0); TOTAL PROTEIN 4.4 g/dL (6.7-8.2)
[2022-09-21] MEDS: ACETAMINOPHEN 500 MG TABLET PO PRN ×2 (01:14→21:00)
--- NOTE | 2022-09-21 08:45 | ED Physician Documentation ---
ED Addendum - Addendum Addendum: 09/21/22 08:43 67-year-old male awaiting placement in the emergency department long-term is getting diuresis and he has a soft blood pressure. He is on metoprolol and his dose has been reduced to 25 mg/day from 50 and this morning I have gone in and checked his volume with bedside ultrasound and found his vessel was 1.74 cm collapsing to 1.01 cm consistent with euvolemia. The patient does not need additional fluid for blood pressure. He is on 80 mg of Lasix per day his potassium is 3.4 and we will add additional potassium into his regimen.
[2022-09-21] MEDS: FUROSEMIDE 20 MG TABLET PO SCH (10:15)
[2022-09-21] MEDS: METOPROLOL SUCCINATE 25 MG TABLET PO SCH (10:16)
[2022-09-21] MEDS: FAMOTIDINE 20 MG TABLET PO SCH ×2 (10:18→21:00)
[2022-09-21] MEDS: ASPIRIN CHEW 81 MG TABLET PO SCH (10:18)
[2022-09-21] MEDS: PRENATAL VITAMIN TABLET PO SCH (10:18)
[2022-09-21] MEDS: POTASSIUM CHLORIDE 10 MEQ CAPSULE PO SCH (10:18)
[2022-09-21] MEDS: MAGNESIUM OXIDE 400 MG TABLET PO SCH (10:18)
[2022-09-21] MEDS: CLOPIDOGREL 75 MG TABLET PO SCH (10:18)
[2022-09-21] MEDS: CALCIUM CARBONATE CHEW 500 MG TABLET PO SCH ×2 (10:18→20:59)
[2022-09-21] MEDS: oxyCODONE 5 MG TABLET PO PRN ×2 (16:17→21:00)
[2022-09-21] MEDS: traZODone 50 MG TABLET PO SCH (21:00)
[2022-09-22] MEDS: ACETAMINOPHEN 500 MG TABLET PO PRN (06:25)
[2022-09-22] MEDS: oxyCODONE 5 MG TABLET PO PRN (07:49)
[2022-09-22] MEDS: PRENATAL VITAMIN TABLET PO SCH (08:18)
[2022-09-22] MEDS: CLOPIDOGREL 75 MG TABLET PO SCH (08:18)
[2022-09-22] MEDS: FUROSEMIDE 20 MG TABLET PO SCH (08:18)
[2022-09-22] MEDS: ASPIRIN CHEW 81 MG TABLET PO SCH (08:18)
[2022-09-22] MEDS: MAGNESIUM OXIDE 400 MG TABLET PO SCH (08:19)
[2022-09-22] MEDS: FAMOTIDINE 20 MG TABLET PO SCH ×2 (08:19→21:33)
[2022-09-22] MEDS: METOPROLOL SUCCINATE 25 MG TABLET PO SCH (08:19)
[2022-09-22] MEDS: CALCIUM CARBONATE CHEW 500 MG TABLET PO SCH ×2 (08:19→21:33)
--- NOTE | 2022-09-22 11:46 | ED Physician Documentation ---
ED Addendum - Addendum Addendum: 09/22/22 11:45 Subjective: I had a long talk with the patient's, his is also at the bedside using the [employer] ventilating engineer tablet. It was relayed to me overnight that he was thinking about going home but he does not seem strong enough. When I discussed this with the patient he voiced that this was probably a misunderstanding, stating that he had said something along the lines of white on I just do not go home as he was frustrated that the nurses were not giving him his medications when asked for them. Not sure why that is happening is he has had as needed pain medications ordered, but I offered to change his medications from as needed to scheduled and given that we will decrease them to every 6 hours as he seemed happy with that. He understands that he is boarding given the full hospital for placement and that given the complexity per the social workers notes, this will likely take several more days to possibly several weeks and he is understanding. He has no other specific complaints. Objective: Low normal blood pressures but not alarming. His metoprolol has already been decreased. His legs are bandaged and he is sitting up more than in prior days. He seems comfortable at rest. Conversant. Assessment: Weakness and deconditioning, wound care ongoing. Plan: Eventual placement per social work. Eventually we might be able to admit him socially to the hospital, but the hospital has been fairly full since he has arrived.
[2022-09-22] MEDS: POTASSIUM CHLORIDE 10 MEQ CAPSULE PO SCH (12:45)
[2022-09-22] MEDS: ACETAMINOPHEN 325 MG TABLET PO SCH ×2 (13:26→19:35)
[2022-09-22] MEDS: oxyCODONE 5 MG TABLET PO SCH ×2 (13:27→19:35)
[2022-09-22] MEDS ORDERED: SODIUM CHLORIDE 0.9% 500 ML IV STA ×2 (21:45→23:08)
[2022-09-22] MEDS: traZODone 50 MG TABLET PO SCH (22:51)
[2022-09-23] MEDS ORDERED: SODIUM CHLORIDE 0.9% 1,000 ML IV STA (03:37)
[2022-09-23 04:54] LABS: BASOPHILS # (AUTO) 0.1 10^3/uL (0.0-0.1); BASOPHILS % (AUTO) 1.2 %; EOSINOPHILS # (AUTO) 0.5 10^3/uL (0.0-0.7); EOSINOPHILS % (AUTO) 6.4 %; HGB - HEMOGLOBIN 9.2 g/dL (14.0-18.0); LYMPHOCYTES % (AUTO) 13.4 %; MEAN CORPUSCULAR HEMOGLOBIN 29.2 pg (27.0-31.0); MEAN CORPUSCULAR HGB CONC 31.7 g/dL (32.0-36.0); MEAN CORPUSCULAR VOLUME 92.1 fL (80.0-94.0); MONOCYTES # (AUTO) 0.6 10^3/uL (0.0-1.0); MONOCYTES % (AUTO) 7.4 %; NEUTROPHILS # (AUTO) 5.5 10^3/uL (1.5-6.6); NEUTROPHILS % (AUTO) 71.2 %; PLT - PLATELET COUNT 313 10^3/uL (130-450); RED BLOOD COUNT 3.15 10^6/uL (4.70-6.10); RED CELL DISTRIBUTION WIDTH 16.7 % (12.0-15.0); WHITE BLOOD COUNT 7.7 x10^3/uL (4.8-10.8)
[2022-09-23 05:04] LABS: CALCIUM 7.2 mg/dL (8.5-10.3); CREATININE 0.5 mg/dL (0.6-1.2); POTASSIUM 3.6 mmol/L (3.5-5.0)
[2022-09-23] MEDS: oxyCODONE 5 MG TABLET PO SCH ×4 (06:58→18:01)
[2022-09-23] MEDS: ACETAMINOPHEN 325 MG TABLET PO SCH ×4 (06:58→18:01)
[2022-09-23] MEDS: FUROSEMIDE 20 MG TABLET PO SCH (09:17)
[2022-09-23] MEDS: MAGNESIUM OXIDE 400 MG TABLET PO SCH (09:17)
[2022-09-23] MEDS: PRENATAL VITAMIN TABLET PO SCH (09:17)
[2022-09-23] MEDS: FAMOTIDINE 20 MG TABLET PO SCH ×2 (09:17→21:07)
[2022-09-23] MEDS: ASPIRIN CHEW 81 MG TABLET PO SCH (09:17)
[2022-09-23] MEDS: CLOPIDOGREL 75 MG TABLET PO SCH (09:17)
[2022-09-23] MEDS: POTASSIUM CHLORIDE 10 MEQ CAPSULE PO SCH (09:17)
[2022-09-23] MEDS: CALCIUM CARBONATE CHEW 500 MG TABLET PO SCH ×2 (14:48→21:07)
--- NOTE | 2022-09-23 16:43 | ED Physician Documentation ---
ED Addendum - Addendum Addendum: 09/23/22 16:42 Subjective: No new complaints, his chronic back pain is neither better nor worse than it has been. Objective: His blood pressure has been trending up with the changes in his meds, we have stopped the antihypertensives and his Lasix is at a half dose that it was. He appears well with no anasarca. Assessment: Deconditioned man awaiting placement for long-term SNF Plan: 1. Seen by physical therapy today, they recommend that he get up to a chair and we will need a Beth lift to do that. Asked the nurse to help coordinate this. 2. His blood pressures are improving, will continue to monitor. 3. I understand from administration the plan is to potentially admit him for tomorrow.
[2022-09-23] MEDS: traZODone 50 MG TABLET PO SCH (21:05)
[2022-09-23] MEDS ORDERED: SODIUM CHLORIDE 0.9% 500 ML IV STA (23:50)
[2022-09-24] MEDS: oxyCODONE 5 MG TABLET PO SCH ×5 (00:01→23:36)
[2022-09-24] MEDS: ACETAMINOPHEN 325 MG TABLET PO SCH ×5 (00:01→23:36)
[2022-09-24] MEDS: CALCIUM CARBONATE CHEW 500 MG TABLET PO SCH ×3 (06:13→22:18)
[2022-09-24] MEDS: MAGNESIUM OXIDE 400 MG TABLET PO SCH (09:54)
[2022-09-24] MEDS: FAMOTIDINE 20 MG TABLET PO SCH ×2 (09:55→22:17)
[2022-09-24] MEDS: ASPIRIN CHEW 81 MG TABLET PO SCH (09:55)
[2022-09-24] MEDS: FUROSEMIDE 20 MG TABLET PO SCH (09:55)
[2022-09-24] MEDS: POTASSIUM CHLORIDE 10 MEQ CAPSULE PO SCH (09:55)
[2022-09-24] MEDS: CLOPIDOGREL 75 MG TABLET PO SCH (09:55)
[2022-09-24] MEDS: PRENATAL VITAMIN TABLET PO SCH (09:55)
--- NOTE | 2022-09-24 14:14 | WOUND CARE PROGRESS NOTE ---
Assessment/Plan - Problem List (1) Deep tissue injury Assessment/Plan: Right heel with one small opening. Plan of care: Wound hygiene with antimicrobial solution. Dressing with hydrofera blue over the opening, plain foam over the entire area followed by a reverse football offloading wrap. Encouraged complete offloading. RTC in one week. (2) Pressure injury, unstageable Qualifiers: Pressure injury location: heel Laterality: left Qualified Code(s): L89.620 - Pressure ulcer of left heel, unstageable Assessment/Plan: 100% thick adherent slough covered. Plan of care: Wound hygiene with sharp debridement of non-viable tissue and antimicrobial solution. Dressing with cadexomer iodine to enhance autolytic debridement followed by plain foam and a reverse football dressing for offloading. Encouraged offloading as above. (3) Pressure injury of sacral region, stage 2 Assessment/Plan: Healed stage 2 pressure injury. ED nurses have been doing a great job with applying zinc along with frequent position changes. Plan of care: Extra thick antifungal barrier cream applied to entire sacral region. Continue to apply zinc or extra thick antifungal barrier to buttocks 2-3 times daily along with continued frequent position changes. (4) Pressure injury of toe of right foot, stage 4 Assessment/Plan: Right great toe. Probes to bone. No s/s infection. Plan of care: Wound hygiene with sharp debridement of non-viable tissue and antimicrobial solution. Dressing with honey alginate, 2x2 gauze and skin sensitive tape. Advised to keep dressings dry and intact. RTC in one week. Encouraged nurses to keep blankets lifted off of toes. Close follow up. Consider x-ray if suspected infection. (5) Pressure injury of toe of right foot, stage 3 Assessment/Plan: Right foot second toe. Plan of care: Wound hygiene with sharp debridement of non-viable tissue and antimicrobial solution. Dressing with honey alginate, 2x2 gauze, and skin sensitive tape. Encouraged nurses to try to keep covers from resting on toes. Dressing to remain dry and intact. RTC in one week. (6) ISTAP type 3 skin tear of left forearm Assessment/Plan: No s/s infection. Plan of care: Wound hygiene with NS and antimicrobial solution. Dressing with xeroform and a tegaderm. Dressing may stay dry and intact until follow up appointment next week. - Results Lab Results: Laboratory Results Sodium 132 mmol/L (135-145) L 09/23/22 04:46 Potassium 3.6 mmol/L (3.5-5.0) 09/23/22 04:46 Chloride 97 mmol/L (101-111) L 09/23/22 04:46 Carbon Dioxide 30 mmol/L (21-32) 09/23/22 04:46 Anion Gap 5.0 (6-13) L 09/23/22 04:46 BUN 9 mg/dL (6-20) 09/23/22 04:46 Creatinine 0.5 mg/dL (0.6-1.2) L 09/23/22 04:46 Glucose 82 mg/dL (70-100) 09/23/22 04:46 Calcium 7.2 mg/dL (8.5-10.3) L 09/23/22 04:46 Total Bilirubin 1.0 mg/dL (0.2-1.0) 09/21/22 00:46 AST 18 IU/L (10-42) 09/21/22 00:46 ALT 18 IU/L (10-60) 09/21/22 00:46 Alkaline Phosphatase 81 IU/L (42-121) 09/21/22 00:46 Total Protein 4.4 g/dL (6.7-8.2) L 09/21/22 00:46 Albumin 1.8 g/dL (3.2-5.5) L 09/21/22 00:46 Globulin 2.6 g/dL (2.1-4.2) 09/21/22 00:46 Albumin/Globulin Ratio 0.7 (1.0-2.2) L 09/21/22 00:46 - Home Meds/Allergies Allergies hydrocodone bitartrate * [From Vicodin] Adverse Reaction (Verified 09/11/22 17:57) Unknown iron Adverse Reaction (Verified 09/11/22 17:57) Unknown lactose Adverse Reaction (Verified 09/11/22 17:57) Unknown - Additional Planning Condition/Complexity: Stable (Patient is currently boarding in the ED) Plan Discussed with:: Patient Objective General: Alert, Oriented x3, Cooperative, No acute distress - Wound Assessment Wound assessment: Wound #1 Right lateral knee: Healed Wound # 2: Right medial ankle: Healed Wound # 3: Right heel: 3.1 x 2.6 x 0.1 DTI with dark purple base. Small granular opening measuring 0.5 x 0.5 x 0.1 located at the medial aspect of the DTI. The periwound area with blanchable erythema. No drainage noted. Patient reports tender to the touch. No odor, no s/s infection. Wound # 4: Left medial lower extremity: Healed Wound # 5: Left medial ankle: Healed Wound #6: Sacral region Healed with blanchable erythema. Wound # 7: Left heel This wound is an unstageable pressure injury. The wound bed is 100% thick adherent yellow to brown slough. The wound edges are unattached with undermining from 3-9 o'clock measuring 0.3cm and a tunnel at 3 o'clock measuring 0.7cm. The periwound with blanchable erythema. Mild drainage, no odor. Reports pain. Wound # 8: Left forearm 1.6 x 1.6 x 0.1 This wound is an ISTAP type 3 skin tear, total loss of tissue. The wound bed is 100% clean granular tissue. Wound edges are attached. No undermining, no tunneling, no drainage. Periwound wnl. No s/s infection. Wound #9: Right great toe: This wound is a stage 4 pressure injury. The wound bed is 100% granular tissue post debridement. The wound probes to bone. The wound edges are unattached with undermining from 1-3 o'clock measuring 0.3. Periwound wnl. There is very little drainage noted. Denies pain. No s/s infection. Wound #10: Right second toe: Stage 3 pressure injury. The wound bed is 100% granular tissue post debridement. The wound edges are attached, no undermining, no tunneling. Wound does not probe to bone. There is little to no drainage. The periwound is wnl. Denies pain. No s/s infectin. Left: Pulses DP/PT palpable, Right: Pulses DP/PT palpable, Bilateral LE trace Bilateral LE hemosiderin staining Subjective - Subjective Patient Reports: Feeling Better, Other (Reporting pain to bilateral heals.) Procedure - Procedure Note Wound Debridement: Wound # 7: Left heel Pre: 1.0 x 1.3 x 0.3 Post: 1.0 x 1.5 x 0.7 Total area debrided: 1.5 sq cm After informed consent, the wound and periwound were cleansed, then 5% topical lidocaine was applied for local anesthesia. Using a 3 mm curette and a #15 blade with forceps, the wound was sharply debrided of non-viable and subcutaneous tissue down to viable bleeding subcutaneous tissue. Skin edges were freshened in a similar fashion. 100% of the wound bed debrided. Hemostasis was achieved with pressure and time. A new dressing consisting of cadexomer iodine with antimicrobial properties was applied. Patient tolerated the procedure well without apparent complications. Appropriate follow up instructions were given. Wound #9: Right great toe: Pre: (not measured) Post: 0.4 x 0.4 x 0.6 Total area debrided: 0.16 sq cm After informed consent, the wound and periwound were cleansed, then 5% topical lidocaine was applied for local anesthesia. Using a a #15 blade, the wound was sharply debrided of non-viable and subcutaneous tissue down to viable bleeding subcutaneous tissue probing to bone. Skin edges were freshened in a similar fashion. 100% of the wound debrided. Hemostasis was achieved with pressure and time. A new dressing consisting of honey alginate with antimicrobial properties was applied. Patient tolerated the procedure well without apparent complications. Appropriate follow up instructions were given. Wound #10: Right second toe: Pre: (not measured) Post: 0.4 x 0.5 x 0.3 Total area debrided: 0.20 sq cm After informed consent, the wound and periwound were cleansed, then 5% topical lidocaine was applied for local anesthesia. Using a #15 blade, the wound was sharply debrided of non-viable and subcutaneous tissue down to viable bleeding subcutaneous tissue. Skin edges were freshened in a similar fashion. 100% of the wound debrided. Hemostasis was achieved with pressure and time. A new dressing consisting of honey alginate with antimicrobial properties was applied. Patient tolerated the procedure well without apparent complications. Appropriate follow up instructions were given. Total area debrided: 1.86 sq cm Meds/Allgy - Home Medications Home Medications: Ambulatory Orders Medication Instructions Recorded Confirmed Aspirin [Aspirin EC] 81 mg PO DAILY 10/21/14 09/04/22 Clopidogrel [Plavix] 75 mg PO DAILY 10/21/14 09/04/22 Diclofenac Sodium [Voltaren 2 gm TP Q6H PRN 07/04/22 09/04/22 Arthritis Pain] Famotidine [Pepcid] 40 mg PO BID 07/04/22 09/04/22 Atorvastatin [Lipitor] 10 mg PO QPM #0 07/30/22 09/04/22 Calcium Carbonate [Tums (Calcium 500 mg PO BID tablet 07/30/22 09/04/22 Carbonate 500mg)] Cholecalciferol [Vitamin D3] 50 mcg PO DAILY tablet 07/30/22 09/04/22 Folic Acid 1 mg PO DAILY #0 07/30/22 09/04/22 Multivitamin [Theragran] 1 tab PO DAILYWM tablet 07/30/22 09/04/22 Ranolazine [Ranexa] 500 mg PO DAILY #0 07/30/22 09/04/22 traZODone [Desyrel] 25 mg PO QPM tablet 07/30/22 09/04/22 Furosemide [Lasix] 80 mg PO DAILY 09/04/22 09/04/22 Metoprolol Succinate 100 mg PO DAILY 09/04/22 09/04/22 Oxycodone HCl/Acetaminophen 1 tab PO QID PRN 09/04/22 09/04/22 [Percocet 10-325 mg Tablet] lisinopriL [Lisinopril] 40 mg PO DAILY 09/04/22 09/04/22 cephALEXin [Keflex] 500 mg PO Q6H #20 cap 09/10/22 - Allergies Allergies/Adverse Reactions: Allergies Allergy/AdvReac Type Severity Reaction Status Date / Time hydrocodone bitartrate * AdvReac Unknown Verified 09/11/22 17:57 [From Vicodin] iron AdvReac Unknown Verified 09/11/22 17:57 lactose AdvReac Unknown Verified 09/11/22 17:57
--- NOTE | 2022-09-24 15:21 | ED Physician Documentation ---
ED Addendum - Addendum Addendum: 09/24/22 15:21 Subjective: No new complaints today, he seems happier with getting his pain medication scheduled as opposed to as needed. He went to wound care today, see please the nurse practitioner's note. Objective: Blood pressure better today with the cessation of most of his ant ihypertensives. Assessment: Generalized weakness, multiple wounds Plan: Hospital census is better today so the plan is to move him to the floor, he is to continue to be in emergency department patient. I have educated the emergency department team that we do need to round on him daily, but the hospitalist will write orders. Any changes in the plan of care or medications should be coordinated between our team and the hospitalist team.
[2022-09-24] MEDS ORDERED: DICLOFENAC SODIUM 1% GEL 50 GM TUBE TOP PRN (17:10)
[2022-09-24] MEDS: ATORVASTATIN 10 MG TABLET PO SCH (22:17)
[2022-09-24] MEDS: traZODone 50 MG TABLET PO SCH (22:18)
[2022-09-24] MEDS ORDERED: ALBUMIN 25% 12.5 GM/50 ML VIAL IV STA (22:22)
[2022-09-25] MEDS: oxyCODONE 5 MG TABLET PO SCH ×3 (05:42→17:39)
[2022-09-25] MEDS: ACETAMINOPHEN 325 MG TABLET PO SCH ×3 (05:42→17:39)
[2022-09-25] MEDS: CALCIUM CARBONATE CHEW 500 MG TABLET PO SCH ×3 (05:42→20:40)
[2022-09-25 05:56] LABS: BASOPHILS # (AUTO) 0.1 10^3/uL (0.0-0.1); BASOPHILS % (AUTO) 1.3 %; EOSINOPHILS # (AUTO) 0.8 10^3/uL (0.0-0.7); EOSINOPHILS % (AUTO) 8.2 %; HCT - HEMATOCRIT 33.6 % (42.0-52.0); HGB - HEMOGLOBIN 10.8 g/dL (14.0-18.0); LYMPHOCYTES # (AUTO) 1.6 10^3/uL (1.5-3.5); LYMPHOCYTES % (AUTO) 17.9 %; MEAN CORPUSCULAR HEMOGLOBIN 29.8 pg (27.0-31.0); MEAN CORPUSCULAR HGB CONC 32.1 g/dL (32.0-36.0); MEAN CORPUSCULAR VOLUME 92.6 fL (80.0-94.0); MEAN PLATELET VOLUME 8.8 fL (7.4-11.4); MONOCYTES # (AUTO) 0.8 10^3/uL (0.0-1.0); MONOCYTES % (AUTO) 8.9 %; NEUTROPHILS # (AUTO) 5.8 10^3/uL (1.5-6.6); NEUTROPHILS % (AUTO) 63.5 %; PLT - PLATELET COUNT 334 10^3/uL (130-450); RED BLOOD COUNT 3.63 10^6/uL (4.70-6.10); RED CELL DISTRIBUTION WIDTH 16.7 % (12.0-15.0); WHITE BLOOD COUNT 9.1 x10^3/uL (4.8-10.8)
[2022-09-25 06:03] LABS: CALCIUM 8.1 mg/dL (8.5-10.3); CREATININE 0.5 mg/dL (0.6-1.2); POTASSIUM 4.3 mmol/L (3.5-5.0)
[2022-09-25] MEDS: CHOLECALCIFEROL 400 UNIT TABLET PO SCH (08:52)
[2022-09-25] MEDS: MAGNESIUM OXIDE 400 MG TABLET PO SCH (08:52)
[2022-09-25] MEDS: MULTIVITAMIN TABLET PO SCH (08:52)
[2022-09-25] MEDS: POTASSIUM CHLORIDE 10 MEQ CAPSULE PO SCH (08:52)
[2022-09-25] MEDS: FOLIC ACID 1 MG TABLET PO SCH (08:52)
[2022-09-25] MEDS: ASPIRIN EC 81 MG TABLET PO SCH (08:53)
[2022-09-25] MEDS: FAMOTIDINE 20 MG TABLET PO SCH ×2 (08:53→20:39)
[2022-09-25] MEDS: CLOPIDOGREL 75 MG TABLET PO SCH (08:53)
[2022-09-25] MEDS ORDERED: MIDODRINE 2.5 MG TABLET PO STA (09:10)
[2022-09-25] MEDS: FUROSEMIDE 40 MG TABLET PO SCH ×2 (10:21→14:31)
--- NOTE | 2022-09-25 11:56 | ED Physician Documentation ---
ED Addendum - Addendum Addendum: Patient remains in ED status but Has been moved to the general medical floor. Hospitalist have been consulted to also place medication orders. S - Patient has continued to have borderline blood pressures. Received dose of albumin last night with some improvement. O - I spoke with his RN this morning. Patient has no complaints this morning Even while pressures are low. A - Generalized weakness, multiple wounds, hypotension P - Patient remains waiting placement. I did order a one-time dose of midodrine as he did receive that through his previous admission. His RN is planning to discuss his blood pressure with Dr. Pizarro while she is rounding this morning.
[2022-09-25] MEDS: MIDODRINE 2.5 MG TABLET PO SCH ×2 (12:02→17:39)
--- NOTE | 2022-09-25 15:07 | ED Physician Documentation ---
ED Addendum - Addendum Addendum: 09/25/22 15:07 Subjective: Patient having more back pain today, in the process of moving him to the floor his oxycodone got decreased to 5 mg every 6 hours instead of the usual 10 mg. I will fix that. Objective: His blood pressure was pretty good through the day yesterday, dropped down overnight last night I given him a dose of albumin last night. Remained low through midday and then we started midodrine which she had been on on his last admission and blood pressure now better. Assessment: Weakness, back pain Plan still looking for placement.
[2022-09-25] MEDS: ATORVASTATIN 10 MG TABLET PO SCH (20:39)
[2022-09-25] MEDS: traZODone 50 MG TABLET PO SCH (20:40)
[2022-09-26] MEDS: ACETAMINOPHEN 325 MG TABLET PO SCH ×4 (00:28→17:38)
[2022-09-26] MEDS: oxyCODONE 5 MG TABLET PO SCH ×4 (00:29→17:38)
[2022-09-26] MEDS: CALCIUM CARBONATE CHEW 500 MG TABLET PO SCH ×3 (05:57→20:05)
[2022-09-26] MEDS: CHOLECALCIFEROL 400 UNIT TABLET PO SCH (09:23)
[2022-09-26] MEDS: POTASSIUM CHLORIDE 10 MEQ CAPSULE PO SCH (09:24)
[2022-09-26] MEDS: FAMOTIDINE 20 MG TABLET PO SCH ×2 (09:24→20:05)
[2022-09-26] MEDS: MIDODRINE 2.5 MG TABLET PO SCH ×3 (09:24→15:51)
[2022-09-26] MEDS: CLOPIDOGREL 75 MG TABLET PO SCH (09:24)
[2022-09-26] MEDS: MAGNESIUM OXIDE 400 MG TABLET PO SCH (09:24)
[2022-09-26] MEDS: FOLIC ACID 1 MG TABLET PO SCH (09:25)
[2022-09-26] MEDS: FUROSEMIDE 40 MG TABLET PO SCH ×2 (09:25→11:42)
[2022-09-26] MEDS: ASPIRIN EC 81 MG TABLET PO SCH (09:25)
[2022-09-26] MEDS: MULTIVITAMIN TABLET PO SCH (09:25)
--- NOTE | 2022-09-26 12:37 | ED Physician Documentation ---
ED Addendum - Addendum Addendum: Subjective: Patient remains in ED status but is Boarding on the medical floor.Has had issues with low blood pressure but patient is now on scheduled midodrine. Objective: Blood pressure appears improved since yesterday and remaining more stable with systolics in the 90s. Assessment:Generalized weakness,Multiple wounds Plan: Pending placement
[2022-09-26] MEDS: ATORVASTATIN 10 MG TABLET PO SCH (20:05)
[2022-09-26] MEDS: traZODone 50 MG TABLET PO SCH (20:05)
[2022-09-27] MEDS: oxyCODONE 5 MG TABLET PO SCH ×5 (00:32→23:43)
[2022-09-27] MEDS: ACETAMINOPHEN 325 MG TABLET PO SCH ×5 (00:32→23:43)
[2022-09-27] MEDS: CALCIUM CARBONATE CHEW 500 MG TABLET PO SCH ×3 (06:27→20:46)
[2022-09-27] MEDS: MIDODRINE 2.5 MG TABLET PO SCH ×3 (09:10→17:02)
[2022-09-27] MEDS: CHOLECALCIFEROL 400 UNIT TABLET PO SCH (09:11)
[2022-09-27] MEDS: FAMOTIDINE 20 MG TABLET PO SCH ×2 (09:11→20:46)
[2022-09-27] MEDS: FOLIC ACID 1 MG TABLET PO SCH (09:11)
[2022-09-27] MEDS: POTASSIUM CHLORIDE 10 MEQ CAPSULE PO SCH (09:12)
[2022-09-27] MEDS: MAGNESIUM OXIDE 400 MG TABLET PO SCH (09:12)
[2022-09-27] MEDS: ASPIRIN EC 81 MG TABLET PO SCH (09:12)
[2022-09-27] MEDS: MULTIVITAMIN TABLET PO SCH (09:13)
[2022-09-27] MEDS: CLOPIDOGREL 75 MG TABLET PO SCH (09:13)
[2022-09-27] MEDS: FUROSEMIDE 40 MG TABLET PO SCH (11:25)
[2022-09-27] MEDS ORDERED: ONDANSETRON ODT 4 MG TABLET TL STA (14:00)
--- NOTE | 2022-09-27 14:39 | PROVIDER PROGRESS NOTE ---
Hospitalist Cross-cover Note - Cross-Cover Note Cross-Cover Note: September 27, 2022 2:48 PM his is at the bedside. She comes every day. I have been asked to see the patient in a brief consultation to make sure everything is going okay with this unfortunate gentleman. I am on the hospitalist service and will be performing an outpatient evaluation for this ED patient. He had been admitted July 10 through July 30 for sepsis due to E. coli UTI. He is a gentleman who has urinary retention. Is incredibly sedentry. Has chronic pain syndrome from his low back. And it becomes so sedentary that he had poor truncal stability and could barely sit up when he was at home. His was taking care of him full-time and unfortunately he had failure to thrive. With that July admission he had protein calorie malnutrition that was moderate. Severe muscle deconditioning. Once he was stabilized from a sepsis and infection perspective, we then worked on his skin breakdown, malnutrition, and strength. Physical therapy work with him for quite some time. When he was discharged July 30 he was discharged to a halfway facility for rehab. He checked him self out of the rehab facility because he just did not want to be there anymore on September 02. He was not able to stay home more than a day. The ability for his to take care of him far exceeds her capacity. He does not have the equipment at home, nor does she have the training. He then returned to the ER September 03 and was discharged September 11. He was hospitalized for E. coli UTI, orthostatic hypotension that was chronic was addressed, venous stasis leg wounds were addressed. He had atrial fibrillation intermittently. And even though he had fallen at home out of his chair, there were no fractures or brain bleeds. He was again felt to have generalized weakness, poor truncal stability and needed rehab. Again we were discharging him to a halfway facility for rehab. The patient refused. He said that he was not getting get rehab and would prefer to go home with home health. Even though this was all clearly explained to him, and we explained that home health may not be able to meet his needs, he refused to consider anything else. He was home less than a day and came back to the emergency room that day because he could not transfer safely, and had fallen a couple of times at home. He has been in the emergency room since that time. In the ER he has had orthostatic hypotension. That is a chronic problem for him and he has had that with both of his days in July and August. Midodrine was used with his last admission and its not clear why that was not continued with discharge home. He has developed areas of skin loss while in the emergency room [facility]. He is now being followed by wound care for his sacrum and for bilateral venous stasis ulcers that were already present. Venous stasis ulcers and edema or a chronic problem for him. Mr. Fili Cota tells me that he is comfortable. He does not have any chest pain, cough, shortness of breath. He is regretful that he turned down the op portunity to go to a halfway facility under [facility]. He remembers the day that I was in the room and [facility] called him and he refused to go to the facility and [facility] thereby close the case. Physical therapy is working with him in his gurney. Today he has been nauseated when they sit him up on the side of the bed. He wonders if he could have some Zofran. There is no abdominal pain and I am not clear about when his last bowel movement was. He is eating meals brought to him. His blood pressure will occasionally get low. Yes today and today he has been in the 80s systolic at times. But then he bounces back up to 110/63 as he is now. Past Medical History Cardiovascular: Hypertension, High cholesterol, Coronary artery disease, atrial fibrillation Respiratory: None Neuro: None Endocrine/Autoimmune: None GI: GERD, Hiatal hernia, Diverticulitis, Other : Retention HEENT: None Psych: None Musculoskeletal: Other Derm: None Past Surgical History Past Surgical History: Yes General: Bowel surgery, Hiatal hernia repair Ortho: Knee replacement Active Medications Acetaminophen (Acetaminophen 325 Mg Tablet) 650 mg PO Q6HR [facility] Last Admin: 09/27/22 12:43 Dose: 650 mg Aspirin (Aspirin Ec 81 Mg Tablet) 81 mg PO DAILY [facility] Last Admin: 09/27/22 09:12 Dose: 81 mg Atorvastatin Calcium (Atorvastatin 10 Mg Tablet) 10 mg PO QPM [facility] Last Admin: 09/26/22 20:05 Dose: 10 mg Calcium Carbonate/Glycine (Calcium Carbonate Chew 500 Mg Tablet) 500 mg PO TID [facility] Last Admin: 09/27/22 14:16 Dose: 500 mg Cholecalciferol (Cholecalciferol 400 Unit Tablet) 800 unit PO DAILY [facility] Last Admin: 09/27/22 09:11 Dose: 800 unit Clopidogrel Bisulfate (Clopidogrel 75 Mg Tablet) 75 mg PO DAILY [facility] Last Admin: 09/27/22 09:13 Dose: 75 mg Diclofenac Sodium (Diclofenac Sodium 1% Gel 50 Gm Tube) 2 gm TOP QID PRN PRN Reason: PAIN Famotidine (Famotidine 20 Mg Tablet) 40 mg PO BID [facility] Last Admin: 09/27/22 09:11 Dose: 40 mg Folic Acid (Folic Acid 1 Mg Tablet) 1 mg PO DAILY [facility] Last Admin: 09/27/22 09:11 Dose: 1 mg Furosemide (Furosemide 40 Mg Tablet) 40 mg PO Q48H [facility] Magnesium Oxide (Magnesium Oxide 400 Mg Tablet) 400 mg PO DAILYWM [facility] Last Admin: 09/27/22 09:12 Dose: 400 mg Midodrine (Midodrine 2.5 Mg Tablet) 7.5 mg PO TIDWM [facility] Last Admin: 09/27/22 12:43 Dose: 7.5 mg Multivitamins (Multivitamin Tablet) 1 tab PO DAILYWM [facility] Last Admin: 09/27/22 09:13 Dose: 1 tab Oxycodone HCl (Oxycodone 5 Mg Tablet) 10 mg PO Q6HR [facility] Last Admin: 09/27/22 12:43 Dose: 10 mg Potassium Chloride (Potassium Chloride 10 Meq Capsule) 10 meq PO DAILYWM [facility] Last Admin: 09/27/22 09:12 Dose: 10 meq Trazodone HCl (Trazodone 50 Mg Tablet) 25 mg PO QPM [facility] Last Admin: 09/26/22 20:05 Dose: 25 mg Aspirin [Aspirin EC] 81 mg PO DAILY 10/21/14 Clopidogrel [Plavix] 75 mg PO DAILY 10/21/14 Diclofenac Sodium [Voltaren Arthritis Pain] 2 gm TP Q6H PRN 07/04/22 Famotidine [Pepcid] 40 mg PO BID 07/04/22 Furosemide [Lasix] 80 mg PO DAILY 09/04/22 Metoprolol Succinate 100 mg PO DAILY 09/04/22 Oxycodone HCl/Acetaminophen [Percocet 10-325 mg Tablet] 1 tab PO QID PRN 09/04/22 lisinopriL [Lisinopril] 40 mg PO DAILY 09/04/22 Exam: Temperature 36.9. Heart rate 86. Respirations 20. 96% on room air. 5 feet 7 inches tall, 86.6 kg. Morbidly obese pleasant male in no acute distress. Sitting up in bed. is walking around the room helping get things from such as a straw, and napkin, or cream for his back. Slight nasal tone of voice but no facial asymmetry. Wearing glasses. Neck is supple Lungs are clear with diminished breath sounds at the bases A regular rate and rhythm although he has a history of atrial fibrillation. Abdomen is obese, soft, nontender. Legs are wrapped with Kerlix and on top of the Curlex is Felton wrap. He was last seen by wound clinic on September 24. The right heel has a deep tissue injury and is getting hygiene with antimicrobial solution and being dressed with Hydrofera Blue over the opening, plain foam over the area followed by reverse football offloading wrap. The left heel has sloughed skin. The wound was debrided and dressed with A more barrier cream to the foot and again another reverse football dressing. He has a stage II pressure injury of the sacrum. He is getting zinc applied and frequent position changes. Extra thick antifungal barrier cream is applied to the entire sacral region. It is being applied 2-3 times daily. He has a pressure injury of the toe of the right foot, the great toe. No infection. Debridement again done September 24. Honey alginate and gauze. Dressings are to be kept dry and intact and he is can to be seen again approximately October 02 or . Same with the right heel. He has another pressure injury of the right foot second toe. Same as the right great toe. He has a skin tear of the left forearm that is being dressed with Xeroform and Tegaderm. He is alert, oriented. Lucid speech. Lucid historian. Slightly deaf. Prefers to speak Thai. Able to purposely bring food to his mouth. Readjust the bed covers to his liking. He does move his legs at my request but he says that he really has not been able to walk freely for months if not a year. He says that his low back pain just got the best of him and he prefers to stay sitting or laying. September 23 and labs show chronic hyponatremia of 132. BUN and creatinine are stable. CBC is stable with a chronic normocytic anemia. Normal white cell count, normal platelets. Assessment/plan 1. Muscular deconditioning and generalized weakness in a morbidly obese male. This is due to intermittent illness and lack of motivation and increased pain when he does work with physical therapy. At this time physical therapy is working with this man in ED status and will continue to do so. Social work is working behind the scenes trying to find appropriate placement for him. 2. Multiple pressure ulcers being addressed as above. 3. Orthostatic hypotension. Midodrine 7.5 mg p.o. 3 times daily has been re sumed. 4. Chronic atrial fibrillation. Rate has been consistently controlled. Never more than about 86. At times he is bradycardic into the but that last being September 24. He is not on any rate lowering agents. He was on metoprolol and that was discontinued when he was getting bradycardic. He is on Plavix for history of cerebrovascular disease, aspirin. But he is not on a DOAC for his A. fib. At this time it would not change that. 5. Chronic pain syndrome. He is on oxycodone 10 mg p.o. every 6 hours as needed. Stable. Nursing is carefully following him and reporting to us if there is a change in his pain and at this time I do not think we need to change that either. 6. He has history of hyperlipidemia is currently being treated with his Lipitor. No change. 7. History of insomnia currently on trazodone. No change.
--- NOTE | 2022-09-27 17:58 | ED Physician Documentation ---
ED Addendum - Addendum Addendum: 09/27/22 17:56 The hospitalist outpatient consultative note is seen and greatly appreciated. I did stop briefly with and with the patient who also said he was comfortable and denied any particular complaints at the time that I saw him. His was in the room. There does not appear to be any current need for change of therapy. Continue with the present plan.
[2022-09-27] MEDS: traZODone 50 MG TABLET PO SCH (20:46)
[2022-09-27] MEDS: ATORVASTATIN 10 MG TABLET PO SCH (20:46)
[2022-09-28] MEDS: ACETAMINOPHEN 325 MG TABLET PO SCH ×4 (05:53→23:40)
[2022-09-28] MEDS: CALCIUM CARBONATE CHEW 500 MG TABLET PO SCH ×3 (05:54→21:11)
[2022-09-28] MEDS: oxyCODONE 5 MG TABLET PO SCH ×4 (05:54→23:40)
[2022-09-28] MEDS: FAMOTIDINE 20 MG TABLET PO SCH ×2 (09:08→21:10)
[2022-09-28] MEDS: CHOLECALCIFEROL 400 UNIT TABLET PO SCH (09:08)
[2022-09-28] MEDS: MAGNESIUM OXIDE 400 MG TABLET PO SCH (09:08)
[2022-09-28] MEDS: MULTIVITAMIN TABLET PO SCH (09:08)
[2022-09-28] MEDS: ASPIRIN EC 81 MG TABLET PO SCH (09:09)
[2022-09-28] MEDS: POTASSIUM CHLORIDE 10 MEQ CAPSULE PO SCH (09:09)
[2022-09-28] MEDS: CLOPIDOGREL 75 MG TABLET PO SCH (09:09)
[2022-09-28] MEDS: FOLIC ACID 1 MG TABLET PO SCH (09:09)
[2022-09-28] MEDS: MIDODRINE 2.5 MG TABLET PO SCH ×3 (09:12→17:08)
--- NOTE | 2022-09-28 18:49 | ED Physician Documentation ---
ED Addendum - Addendum Addendum: 09/28/22 18:49 No acute events or new complaints overnight. Seen by physical therapy today, their notes are reviewed. Blood pressures more in the normal range today. Appreciate hospitalist also following patient.
--- NOTE | 2022-09-28 19:12 | PROVIDER PROGRESS NOTE ---
Hospitalist Cross-cover Note - Cross-Cover Note Cross-Cover Note: September 28, 2022 7:10 PM He has been comfortable all day long. Nausea is better with Zofran. No new complaints. Temperature is 36.7. Heart rate 85. Blood pressure 94/58. Respirations 16. 98% on room air Physical exam is unchanged from yesterday. A moderately overweight male who is able to sit up in bed but really does not have truncal stability. No respiratory distress with clear lungs diminished breath sounds at the bases. Although he is not paraplegic, he has almost no strength to be able to sit up and transfer his legs due to prolonged deconditioning for years now. Legs have been wrapped with Kerlix and Felton wrap and are being followed by wound clinic. Assessment/plan A gentleman who cannot go home due to inability be taken care of by his frail . Multiple stable medical problems unchanged from yesterday. No new orders from me.
[2022-09-28] MEDS: traZODone 50 MG TABLET PO SCH (21:10)
[2022-09-28] MEDS: ATORVASTATIN 10 MG TABLET PO SCH (21:11)
[2022-09-28] MEDS: NYSTATIN CREAM 15 GM TUBE TOP SCH (21:54)
[2022-09-29] MEDS: ACETAMINOPHEN 325 MG TABLET PO SCH ×4 (05:32→23:42)
[2022-09-29] MEDS: CALCIUM CARBONATE CHEW 500 MG TABLET PO SCH ×3 (05:32→21:10)
[2022-09-29] MEDS: oxyCODONE 5 MG TABLET PO SCH ×4 (05:32→23:43)
[2022-09-29 05:42] LABS: CALCIUM 7.9 mg/dL (8.5-10.3); CREATININE 0.6 mg/dL (0.6-1.2); POTASSIUM 3.7 mmol/L (3.5-5.0)
[2022-09-29] MEDS: MIDODRINE 2.5 MG TABLET PO SCH ×2 (08:13→11:37)
[2022-09-29] MEDS: CHOLECALCIFEROL 400 UNIT TABLET PO SCH (08:14)
[2022-09-29] MEDS: POTASSIUM CHLORIDE 10 MEQ CAPSULE PO SCH (08:14)
[2022-09-29] MEDS: CLOPIDOGREL 75 MG TABLET PO SCH (08:14)
[2022-09-29] MEDS: FAMOTIDINE 20 MG TABLET PO SCH ×2 (08:14→21:09)
[2022-09-29] MEDS: FOLIC ACID 1 MG TABLET PO SCH (08:15)
[2022-09-29] MEDS: MAGNESIUM OXIDE 400 MG TABLET PO SCH (08:15)
[2022-09-29] MEDS: ASPIRIN EC 81 MG TABLET PO SCH (08:15)
[2022-09-29] MEDS: MULTIVITAMIN TABLET PO SCH (08:15)
[2022-09-29] MEDS: NYSTATIN CREAM 15 GM TUBE TOP SCH ×2 (08:17→21:10)
[2022-09-29] MEDS: FUROSEMIDE 40 MG TABLET PO SCH (11:37)
--- NOTE | 2022-09-29 15:26 | PROVIDER PROGRESS NOTE ---
Saw Grinder Note - Saw Grinder Note Saw Grinder Note: September 29, 2022 3:20 PM No new events. The only problem is constipation. Active Medications Acetaminophen (Acetaminophen 325 Mg Tablet) 650 mg PO Q6HR [facility] Last Admin: 09/29/22 11:37 Dose: 650 mg Aspirin (Aspirin Ec 81 Mg Tablet) 81 mg PO DAILY [facility] Last Admin: 09/29/22 08:15 Dose: 81 mg Atorvastatin Calcium (Atorvastatin 10 Mg Tablet) 10 mg PO QPM [facility] Last Admin: 09/28/22 21:11 Dose: 10 mg Calcium Carbonate/Glycine (Calcium Carbonate Chew 500 Mg Tablet) 500 mg PO TID [facility] Last Admin: 09/29/22 14:16 Dose: 500 mg Cholecalciferol (Cholecalciferol 400 Unit Tablet) 800 unit PO DAILY [facility] Last Admin: 09/29/22 08:14 Dose: 800 unit Clopidogrel Bisulfate (Clopidogrel 75 Mg Tablet) 75 mg PO DAILY [facility] Last Admin: 09/29/22 08:14 Dose: 75 mg Diclofenac Sodium (Diclofenac Sodium 1% Gel 50 Gm Tube) 2 gm TOP QID PRN PRN Reason: PAIN Famotidine (Famotidine 20 Mg Tablet) 40 mg PO BID [facility] Last Admin: 09/29/22 08:14 Dose: 40 mg Folic Acid (Folic Acid 1 Mg Tablet) 1 mg PO DAILY [facility] Last Admin: 09/29/22 08:15 Dose: 1 mg Furosemide (Furosemide 40 Mg Tablet) 40 mg PO Q48H [facility] Last Admin: 09/29/22 11:37 Dose: 40 mg Magnesium Oxide (Magnesium Oxide 400 Mg Tablet) 400 mg PO DAILYWM [facility] Last Admin: 09/29/22 08:15 Dose: 400 mg Midodrine (Midodrine 2.5 Mg Tablet) 7.5 mg PO TIDWM [facility] Last Admin: 09/29/22 11:37 Dose: 7.5 mg Mineral Oil (Min Oil/Dimethicon/Coconut Oil 92 Gm Tube) 1 applic TOP PRN PRN PRN Reason: Skin Care Multivitamins (Multivitamin Tablet) 1 tab PO DAILYWM [facility] Last Admin: 09/29/22 08:15 Dose: 1 tab Nystatin (Nystatin Cream 15 Gm Tube) 1 applic TOP BID [facility] Last Admin: 09/29/22 08:17 Dose: 1 applic Oxycodone HCl (Oxycodone 5 Mg Tablet) 10 mg PO Q6HR [facility] Last Admin: 09/29/22 11:37 Dose: 10 mg Potassium Chloride (Potassium Chloride 10 Meq Capsule) 10 meq PO DAILYWM [facility] Last Admin: 09/29/22 08:14 Dose: 10 meq Trazodone HCl (Trazodone 50 Mg Tablet) 25 mg PO QPM [facility] Last Admin: 09/28/22 21:10 Dose: 25 mg Aspirin [Aspirin EC] 81 mg PO DAILY 10/21/14 Clopidogrel [Plavix] 75 mg PO DAILY 10/21/14 Diclofenac Sodium [Voltaren Arthritis Pain] 2 gm TP Q6H PRN 07/04/22 Famotidine [Pepcid] 40 mg PO BID 07/04/22 Furosemide [Lasix] 80 mg PO DAILY 09/04/22 Metoprolol Succinate 100 mg PO DAILY 09/04/22 Oxycodone HCl/Acetaminophen [Percocet 10-325 mg Tablet] 1 tab PO QID PRN 09/04/22 lisinopriL [Lisinopril] 40 mg PO DAILY 09/04/22 Temperature 36.7. Blood pressure 93/62. Hypertension is a chronic issue for him and he has been resumed on midodrine 7.5 3 times daily. Respirations are 16 and is 98% on room air. He is a bedbound male due to chronic sedentary status, chronic back pain. He has venous stasis that is being taken care of by the wound clinic. Legs are covered in bandages. Neck is supple Lungs are clear with diminished breath sounds in the bases and there is no labored respiration Regular rate and rhythm Abdomen is soft, nontender. Intertriginous folds have resolving Flavia Skin has barrier cream on sacrum, intertriginous folds, and legs are as above. I am not inspecting legs since they are tightly bandaged and wound clinic says not to take bandages down until they see him again this coming week. Assessment/plan A bedbound gentleman who is no longer able to live safely at home. He far exceeds his ability to take care of him. He ended up in our emergency room and we are now trying to find placement for him. His medical problems include: 1. Muscular deconditioning and generalized weakness in a morbidly obese male 2. Multiple pressure ulcers and venous stasis dermatitis followed by the wound clinic and receiving Lasix. I will change the Lasix to every other day. 3. Orthostatic hypotension being treated with midodrine 7.5 mg 3 times daily. I will increase it to 10 mg p.o. 3 times daily. 4. Chronic atrial fibrillation being treated with metoprolol and no anticoagulation due to his fall risk, and overall poor status 5. Chronic pain syndrome being treated with intermittent oxycodone 6. Hyperlipidemia on a statin 7. Depression with anxiety and insomnia. He is currently on Desyrel. I will add low-dose SSRI today. 8. Chronic anemia 12. Hyponatremia that is intermittent. Looking at labs they seem to be slightly worse today. He is 129. 13. Intermittent hypokalemia. Today he is currently stable 14. Constipation in a bedbound patient. Initiate bowel protocol with nursing 15. Grade 1 diastolic heart failure on echo September 04, 2022. Because of the hyponatremia I will give him a liter of normal saline.
[2022-09-29] MEDS: MIN OIL/DIMETHICON/COCONUT OIL 92 GM TUBE TOP PRN (15:45)
[2022-09-29] MEDS ORDERED: SODIUM CHLORIDE 0.9% 1,000 ML IV SCH (16:00)
[2022-09-29] MEDS: ESCITALOPRAM 10 MG TABLET PO SCH (16:08)
[2022-09-29] MEDS ORDERED: DOCUSATE SODIUM 250 MG CAPSULE PO SCH (16:11)
[2022-09-29] MEDS ORDERED: polyethylene glycoL 3350 17 GM PACKET PO SCH (16:11)
[2022-09-29] MEDS: MIDODRINE 10 MG TABLET PO SCH (17:27)
[2022-09-29] MEDS: DOCUSATE SODIUM 250 MG CAPSULE PO SCH (17:29)
[2022-09-29] MEDS: polyethylene glycoL 3350 17 GM PACKET PO SCH (17:30)
[2022-09-29] MEDS: ATORVASTATIN 10 MG TABLET PO SCH (21:09)
[2022-09-29] MEDS: traZODone 50 MG TABLET PO SCH (21:09)
[2022-09-30] MEDS: CALCIUM CARBONATE CHEW 500 MG TABLET PO SCH ×3 (05:43→21:18)
[2022-09-30] MEDS: ACETAMINOPHEN 325 MG TABLET PO SCH ×4 (05:43→23:52)
[2022-09-30] MEDS: oxyCODONE 5 MG TABLET PO SCH ×4 (05:43→23:52)
[2022-09-30] MEDS: FOLIC ACID 1 MG TABLET PO SCH (09:17)
[2022-09-30] MEDS: polyethylene glycoL 3350 17 GM PACKET PO SCH (09:17)
[2022-09-30] MEDS: ESCITALOPRAM 10 MG TABLET PO SCH (09:17)
[2022-09-30] MEDS: CHOLECALCIFEROL 400 UNIT TABLET PO SCH (09:18)
[2022-09-30] MEDS: MIDODRINE 10 MG TABLET PO SCH ×3 (09:18→18:12)
[2022-09-30] MEDS: FAMOTIDINE 20 MG TABLET PO SCH ×2 (09:18→21:18)
[2022-09-30] MEDS: CLOPIDOGREL 75 MG TABLET PO SCH (09:18)
[2022-09-30] MEDS: MAGNESIUM OXIDE 400 MG TABLET PO SCH (09:18)
[2022-09-30] MEDS: DOCUSATE SODIUM 250 MG CAPSULE PO SCH (09:18)
[2022-09-30] MEDS: SENNA 8.6 MG TABLET PO SCH ×3 (09:18→21:17)
[2022-09-30] MEDS: POTASSIUM CHLORIDE 10 MEQ CAPSULE PO SCH (09:18)
[2022-09-30] MEDS: ASPIRIN EC 81 MG TABLET PO SCH (09:18)
[2022-09-30] MEDS: MULTIVITAMIN TABLET PO SCH (09:19)
[2022-09-30] MEDS: NYSTATIN CREAM 15 GM TUBE TOP SCH (09:19)
[2022-09-30] MEDS: ONDANSETRON ODT 4 MG TABLET TL PRN (14:35)
[2022-09-30] MEDS ORDERED: DOCUSATE SODIUM 250 MG CAPSULE PO SCH (15:49)
[2022-09-30] MEDS ORDERED: polyethylene glycoL 3350 17 GM PACKET PO SCH (15:49)
[2022-09-30] MEDS: ATORVASTATIN 10 MG TABLET PO SCH (21:18)
[2022-09-30] MEDS: traZODone 50 MG TABLET PO SCH (21:18)
[2022-10-01] MEDS: NYSTATIN CREAM 15 GM TUBE TOP SCH ×3 (05:07→21:08)
[2022-10-01] MEDS: SENNA 8.6 MG TABLET PO SCH (05:08)
[2022-10-01] MEDS: CALCIUM CARBONATE CHEW 500 MG TABLET PO SCH ×3 (05:48→21:07)
[2022-10-01] MEDS: oxyCODONE 5 MG TABLET PO SCH ×4 (05:48→23:34)
[2022-10-01] MEDS: ACETAMINOPHEN 325 MG TABLET PO SCH ×4 (05:48→23:34)
[2022-10-01] MEDS: CHOLECALCIFEROL 400 UNIT TABLET PO SCH (08:51)
[2022-10-01] MEDS: polyethylene glycoL 3350 17 GM PACKET PO SCH (08:51)
[2022-10-01] MEDS: FAMOTIDINE 20 MG TABLET PO SCH ×2 (08:51→21:08)
[2022-10-01] MEDS: ASPIRIN EC 81 MG TABLET PO SCH (08:52)
[2022-10-01] MEDS: MIDODRINE 10 MG TABLET PO SCH ×3 (08:52→17:06)
[2022-10-01] MEDS: FUROSEMIDE 40 MG TABLET PO SCH (08:52)
[2022-10-01] MEDS: POTASSIUM CHLORIDE 10 MEQ CAPSULE PO SCH (08:52)
[2022-10-01] MEDS: MULTIVITAMIN TABLET PO SCH (08:52)
[2022-10-01] MEDS: MAGNESIUM OXIDE 400 MG TABLET PO SCH (08:52)
[2022-10-01] MEDS: CLOPIDOGREL 75 MG TABLET PO SCH (08:53)
[2022-10-01] MEDS: DOCUSATE SODIUM 250 MG CAPSULE PO SCH (08:53)
[2022-10-01] MEDS: ESCITALOPRAM 10 MG TABLET PO SCH (08:53)
[2022-10-01] MEDS: FOLIC ACID 1 MG TABLET PO SCH (08:53)
--- NOTE | 2022-10-01 10:25 | WOUND CARE PROGRESS NOTE ---
Assessment/Plan - Problem List (1) Deep tissue injury Assessment/Plan: Right heel with partial thickness periwound. Plan of care: Wound hygiene with antimicrobial solution. Dressing with Ag mesh and plain foam followed by a reverse football offloading wrap and an unnaboot. Encouraged complete offloading. RTC in one week. (2) Pressure injury, unstageable Qualifiers: Pressure injury location: heel Laterality: left Qualified Code(s): L89.620 - Pressure ulcer of left heel, unstageable Assessment/Plan: Left heel. 100% thick adherent slough covered. Decreasing in size. Tender to the touch. Plan of care: Wound hygiene with selective debridement of non-viable tissue and antimicrobial solution. Dressing again with cadexomer iodine to enhance autolytic debridement followed by plain foam and a reverse football dressing for offloading and an unnaboot. Encouraged offloading as above. (3) Pressure injury of sacral region, stage 2 Assessment/Plan: Healed stage 2 pressure injury. Plan of care: Area cleansed with normal saline. Dressing with extra thick antifungal barrier cream. Nursing staff to continue to apply zinc or extra thick antifungal barrier to buttocks 2-3 times daily along with continued frequent position changes. (4) Pressure injury of toe of right foot, stage 4 Assessment/Plan: Healing stage 4 pressure injury to right great toe. Nolonger probes to bone. No s/s infection. Plan of care: Wound hygiene with antimicrobial solution. Dressing with cadexomer iodine, 2x2 gauze and skin sensitive tape. Advised to keep dressings dry and intact. RTC in one week. Continue offloading, keeping blankets lifted off of toes. (5) Pressure injury of toe of right foot, stage 3 Assessment/Plan: Right foot second toe. Plan of care: Wound hygiene with antimicrobial solution. Dressing with cadexomer iodine, 2x2 gauze, and skin sensitive tape. Dressing to remain dry and intact. RTC in one week. Continue offloading as above. (6) ISTAP type 3 skin tear of left forearm Assessment/Plan: Healing well. No s/s infection. Plan of care: Wound cleansed with NS and antimicrobial solution. Dressing with xeroform and a plain foam border dressing. Dressing may stay in place for the next week. RTC in one week. - Results Lab Results: Laboratory Results Sodium 129 mmol/L (135-145) L 10/30/22 05:28 Potassium 3.7 mmol/L (3.5-5.0) 09/29/22 05:28 Chloride 86 mmol/L (101-111) L 09/29/22 05:28 Carbon Dioxide 34 mmol/L (21-32) H 09/29/22 05:28 Anion Gap 9.0 (6-13) 09/29/22 05:28 BUN 11 mg/dL (6-20) 09/29/22 05:28 Creatinine 0.6 mg/dL (0.6-1.2) 09/29/22 05:28 Glucose 73 mg/dL (70-100) 09/29/22 05:28 Calcium 7.9 mg/dL (8.5-10.3) L 09/29/22 05:28 Total Bilirubin 1.0 mg/dL (0.2-1.0) 09/21/22 00:46 AST 18 IU/L (10-42) 09/21/22 00:46 ALT 18 IU/L (10-60) 09/21/22 00:46 Alkaline Phosphatase 81 IU/L (42-121) 09/21/22 00:46 Total Protein 4.4 g/dL (6.7-8.2) L 09/21/22 00:46 Albumin 1.8 g/dL (3.2-5.5) L 09/21/22 00:46 Globulin 2.6 g/dL (2.1-4.2) 09/21/22 00:46 Albumin/Globulin Ratio 0.7 (1.0-2.2) L 09/21/22 00:46 - Home Meds/Allergies Allergies hydrocodone bitartrate * [From Vicodin] Adverse Reaction (Verified 09/11/22 17:57) Unknown iron Adverse Reaction (Verified 09/11/22 17:57) Unknown lactose Adverse Reaction (Verified 09/11/22 17:57) Unknown - Additional Planning Condition/Complexity: Stable Plan Discussed with:: Patient Objective General: Alert, Oriented x3, Cooperative, No acute distress - Wound Assessment Wound assessment: Wound #1 Right lateral knee: Healed Wound # 2: Right medial ankle: Healed Wound # 3: Right heel: 4.1 x 3.3 x 0.1 (mixed) DTI with dark purple base. Partial thickness area around DTI. The periwound area wnl. No drainage noted. Patient denies pain to the wounded area. No odor, no s/s infection. Wound # 4: Left medial lower extremity: Healed Wound # 5: Left medial ankle: Healed Wound #6: Sacral region Healed with blanchable erythema. Wound # 7: Left heel This wound is an unstageable pressure injury. The wound bed is 100% thick adherent yellow slough. The wound edges are attached. No undermining, no tunneling.The periwound with blanchable erythema. Mild drainage, no odor. Reports pain. Wound # 8: Left forearm 0.3 x 0.4 x 0.1 This wound is an ISTAP type 3 skin tear, total loss of tissue. Healing well. The wound bed is 100% clean granular tissue. Wound edges are attached. No undermining, no tunneling, no drainage. Periwound wnl. No s/s infection. Wound #9: Right great toe: 0.3 x 0.3 x 0.1 This wound is a healing stage 4 pressure injury. The wound bed is 100% clean granular tissue that no longer probes to bone. The wound edges are now attached. No undermining, no tunneling. Periwound wnl. There is mild drainage. Denies pain. No s/s infection. Wound #10: Right second toe: 0.2 x 0.2 x 0.1 Healing stage 3 pressure injury. The wound bed is 100% clean granular tissue. The wound edges are attached, no undermining, no tunneling. There is little to no drainage. The periwound is wnl. Denies pain. No s/s infectin. Left: Pulses DP/PT palpable, Right: Pulses DP/PT palpable, Bilateral LE trace Bilateral LE hemosiderin staining Subjective - Subjective Patient Reports: Other (Reporting "I don't feel very good today".) Procedure - Procedure Note Selective debridement: Wound # 7: Left heel Pre: 1.3 x 1.4 x 0.4 Post: 1.3 x 1.4 x 0.5 Total area debrided: 1.82 sq cm After informed consent, the wound and periwound were cleansed, then 5% topical lidocaine was applied for local anesthesia. Using curved forceps, the wound was selectively debrided of proteinaceous slough, fibrin, and debris, with no bleeding. A new dressing consisting of cadexomer iodine with antimicrobial properties was applied. Patient tolerated the procedure well without apparent complications. Appropriate follow up instructions were given. Meds/Allgy - Home Medications Home Medications: Ambulatory Orders Medication Instructions Recorded Confirmed Aspirin [Aspirin EC] 81 mg PO DAILY 10/21/14 09/04/22 Clopidogrel [Plavix] 75 mg PO DAILY 10/21/14 09/04/22 Diclofenac Sodium [Voltaren 2 gm TP Q6H PRN 07/04/22 09/04/22 Arthritis Pain] Famotidine [Pepcid] 40 mg PO BID 07/04/22 09/04/22 Atorvastatin [Lipitor] 10 mg PO QPM #0 07/30/22 09/04/22 Calcium Carbonate [Tums (Calcium 500 mg PO BID tablet 07/30/22 09/04/22 Carbonate 500mg)] Cholecalciferol [Vitamin D3] 50 mcg PO DAILY tablet 07/30/22 09/04/22 Folic Acid 1 mg PO DAILY #0 07/30/22 09/04/22 Multivitamin [Theragran] 1 tab PO DAILYWM tablet 07/30/22 09/04/22 Ranolazine [Ranexa] 500 mg PO DAILY #0 07/30/22 09/04/22 traZODone [Desyrel] 25 mg PO QPM tablet 07/30/22 09/04/22 Furosemide [Lasix] 80 mg PO DAILY 09/04/22 09/04/22 Metoprolol Succinate 100 mg PO DAILY 09/04/22 09/04/22 Oxycodone HCl/Acetaminophen 1 tab PO QID PRN 09/04/22 09/04/22 [Percocet 10-325 mg Tablet] lisinopriL [Lisinopril] 40 mg PO DAILY 09/04/22 09/04/22 cephALEXin [Keflex] 500 mg PO Q6H #20 cap 09/10/22 - Allergies Allergies/Adverse Reactions: Allergies Allergy/AdvReac Type Severity Reaction Status Date / Time hydrocodone bitartrate * AdvReac Unknown Verified 09/11/22 17:57 [From Vicodin] iron AdvReac Unknown Verified 09/11/22 17:57 lactose AdvReac Unknown Verified 09/11/22 17:57
[2022-10-01] MEDS: ONDANSETRON ODT 4 MG TABLET TL PRN (17:14)
[2022-10-01] MEDS: ATORVASTATIN 10 MG TABLET PO SCH (21:08)
[2022-10-01] MEDS: traZODone 50 MG TABLET PO SCH (21:08)
[2022-10-02] MEDS: ACETAMINOPHEN 325 MG TABLET PO SCH ×4 (05:42→23:40)
[2022-10-02] MEDS: CALCIUM CARBONATE CHEW 500 MG TABLET PO SCH ×3 (05:43→21:12)
[2022-10-02] MEDS: oxyCODONE 5 MG TABLET PO SCH ×4 (05:43→23:40)
[2022-10-02] MEDS: MIDODRINE 10 MG TABLET PO SCH ×3 (08:22→16:49)
[2022-10-02] MEDS: polyethylene glycoL 3350 17 GM PACKET PO SCH (08:22)
[2022-10-02] MEDS: POTASSIUM CHLORIDE 10 MEQ CAPSULE PO SCH (08:23)
[2022-10-02] MEDS: DOCUSATE SODIUM 250 MG CAPSULE PO SCH (08:23)
[2022-10-02] MEDS: ESCITALOPRAM 10 MG TABLET PO SCH (08:23)
[2022-10-02] MEDS: MAGNESIUM OXIDE 400 MG TABLET PO SCH (08:23)
[2022-10-02] MEDS: CLOPIDOGREL 75 MG TABLET PO SCH (08:23)
[2022-10-02] MEDS: FAMOTIDINE 20 MG TABLET PO SCH ×2 (08:23→21:10)
[2022-10-02] MEDS: FOLIC ACID 1 MG TABLET PO SCH (08:24)
[2022-10-02] MEDS: MULTIVITAMIN TABLET PO SCH (08:24)
[2022-10-02] MEDS: CHOLECALCIFEROL 400 UNIT TABLET PO SCH (08:24)
[2022-10-02] MEDS: ASPIRIN EC 81 MG TABLET PO SCH (08:24)
[2022-10-02] MEDS: NYSTATIN CREAM 15 GM TUBE TOP SCH ×2 (08:25→21:10)
[2022-10-02] MEDS ORDERED: ONDANSETRON 4 MG/2 ML VIAL IVP STA ×2 (10:35→10:49)
[2022-10-02] MEDS ORDERED: HYDROmorphone 1 MG/ML CARPUJECT IVP STA ×2 (10:35→10:50)
[2022-10-02] MEDS ORDERED: SODIUM CHLORIDE 0.9% 1,000 ML IV STA ×2 (11:35→20:54)
--- NOTE | 2022-10-02 11:40 | ED Physician Documentation ---
ED Addendum - Addendum Addendum: 10/02/2022 Mitch has been constipated and this was relieved yesterday. He is having more pain than usual and he is having some abdominal discomfort and nausea. He is described by the nursing staff as being listless and having concentrated urine. I evaluated the patient at the bedside after treatment with pain medication and he was feeling much improved. He was given Dilaudid intravenously for breakthrough pain. I evaluated his inferior vena cava with a bedside ultrasound and found his vessel to be 9.1 mm consistent with 1 to 2 L of deficit. He is administered a liter of saline intravenously. He was hyponatremic on his last draw and today we will administer fluid and recheck labs this evening. 10/02/22 11:41
[2022-10-02 15:52] LABS: CALCIUM 7.4 mg/dL (8.5-10.3); CREATININE 0.8 mg/dL (0.6-1.2); POTASSIUM 4.3 mmol/L (3.5-5.0)
--- NOTE | 2022-10-02 20:57 | ED Physician Documentation ---
ED Addendum - Addendum Addendum: 10/02/22 20:56 Note made that his sodium has been generally dropping, down to 123 today with increasing BUN. The afternoon and labs were after a liter of saline ordered by Dr. Perry. I will put him on 100 mL an hour of saline overnight and recheck in the morning.
[2022-10-02] MEDS: traZODone 50 MG TABLET PO SCH (21:10)
[2022-10-02] MEDS: ATORVASTATIN 10 MG TABLET PO SCH (21:10)
[2022-10-03] MEDS: oxyCODONE 5 MG TABLET PO SCH ×3 (05:44→17:42)
[2022-10-03] MEDS: CALCIUM CARBONATE CHEW 500 MG TABLET PO SCH ×3 (05:44→21:26)
[2022-10-03] MEDS: ACETAMINOPHEN 325 MG TABLET PO SCH ×3 (05:44→17:42)
[2022-10-03 07:42] LABS: BUN - BLOOD UREA NITROGEN 15 mg/dL (6-20); CALCIUM 7.3 mg/dL (8.5-10.3); CARBON DIOXIDE - CO2 29 mmol/L (21-32); CHLORIDE 91 mmol/L (101-111); CREATININE 0.6 mg/dL (0.6-1.2); GFR - MDRD 134 (>89); GLUCOSE 66 mg/dL (70-100); IONIZED CALCIUM IF INDICATED YES; POTASSIUM 3.6 mmol/L (3.5-5.0); SODIUM 126 mmol/L (135-145)
[2022-10-03 07:46] LABS: CALCIUM, IONIZED 1.05 mmol/L (1.15-1.33); VBG PH 7.399 (7.31-7.41)
[2022-10-03] MEDS: POTASSIUM CHLORIDE 10 MEQ CAPSULE PO SCH (07:49)
[2022-10-03] MEDS: MULTIVITAMIN TABLET PO SCH (07:49)
[2022-10-03] MEDS: MIDODRINE 10 MG TABLET PO SCH ×3 (07:49→17:42)
[2022-10-03] MEDS: MAGNESIUM OXIDE 400 MG TABLET PO SCH (07:49)
[2022-10-03] MEDS ORDERED: CALCIUM GLUC 1,000MG/50ML-NACL 1,000 MG/50 ML BAG IV STA (08:17)
[2022-10-03] MEDS: CHOLECALCIFEROL 400 UNIT TABLET PO SCH (10:21)
[2022-10-03] MEDS: polyethylene glycoL 3350 17 GM PACKET PO SCH (10:21)
[2022-10-03] MEDS: ESCITALOPRAM 10 MG TABLET PO SCH (10:22)
[2022-10-03] MEDS: DOCUSATE SODIUM 250 MG CAPSULE PO SCH (10:22)
[2022-10-03] MEDS: ASPIRIN EC 81 MG TABLET PO SCH (10:22)
[2022-10-03] MEDS: FOLIC ACID 1 MG TABLET PO SCH (10:22)
[2022-10-03] MEDS: FUROSEMIDE 40 MG TABLET PO SCH (10:22)
[2022-10-03] MEDS: FAMOTIDINE 20 MG TABLET PO SCH ×2 (10:22→21:26)
[2022-10-03] MEDS: CLOPIDOGREL 75 MG TABLET PO SCH (10:23)
[2022-10-03] MEDS: NYSTATIN CREAM 15 GM TUBE TOP SCH ×2 (10:38→21:27)
[2022-10-03] MEDS ORDERED: SODIUM CHLORIDE FLUSH 0.9% 10 ML SYRINGE IVP STA (11:44)
[2022-10-03] MEDS: traZODone 50 MG TABLET PO SCH (21:26)
[2022-10-03] MEDS: ATORVASTATIN 10 MG TABLET PO SCH (21:26)
[2022-10-04] MEDS: oxyCODONE 5 MG TABLET PO SCH ×4 (00:05→17:59)
[2022-10-04] MEDS: ACETAMINOPHEN 325 MG TABLET PO SCH ×4 (00:05→17:59)
[2022-10-04 06:31] LABS: BASOPHILS # (AUTO) 0.1 10^3/uL (0.0-0.1); BASOPHILS % (AUTO) 0.6 %; EOSINOPHILS # (AUTO) 0.1 10^3/uL (0.0-0.7); EOSINOPHILS % (AUTO) 1.7 %; HGB - HEMOGLOBIN 10.9 g/dL (14.0-18.0); LYMPHOCYTES % (AUTO) 11.6 %; MEAN CORPUSCULAR HEMOGLOBIN 29.4 pg (27.0-31.0); MEAN CORPUSCULAR VOLUME 88.9 fL (80.0-94.0); MEAN PLATELET VOLUME 8.5 fL (7.4-11.4); MONOCYTES # (AUTO) 0.7 10^3/uL (0.0-1.0); MONOCYTES % (AUTO) 8.1 %; NEUTROPHILS # (AUTO) 6.4 10^3/uL (1.5-6.6); NEUTROPHILS % (AUTO) 77.6 %; PLT - PLATELET COUNT 358 10^3/uL (130-450); RED BLOOD COUNT 3.71 10^6/uL (4.70-6.10); RED CELL DISTRIBUTION WIDTH 16.9 % (12.0-15.0); WHITE BLOOD COUNT 8.3 x10^3/uL (4.8-10.8)
[2022-10-04 06:39] LABS: CALCIUM 7.6 mg/dL (8.5-10.3); CREATININE 0.5 mg/dL (0.6-1.2); POTASSIUM 3.5 mmol/L (3.5-5.0)
[2022-10-04] MEDS: CALCIUM CARBONATE CHEW 500 MG TABLET PO SCH ×3 (06:50→21:28)
[2022-10-04] MEDS: FOLIC ACID 1 MG TABLET PO SCH (08:13)
[2022-10-04] MEDS: ESCITALOPRAM 10 MG TABLET PO SCH (08:13)
[2022-10-04] MEDS: ASPIRIN EC 81 MG TABLET PO SCH (08:13)
[2022-10-04] MEDS: FAMOTIDINE 20 MG TABLET PO SCH ×2 (08:13→21:28)
[2022-10-04] MEDS: MAGNESIUM OXIDE 400 MG TABLET PO SCH (08:13)
[2022-10-04] MEDS: MULTIVITAMIN TABLET PO SCH (08:13)
[2022-10-04] MEDS: CHOLECALCIFEROL 400 UNIT TABLET PO SCH (08:14)
[2022-10-04] MEDS: polyethylene glycoL 3350 17 GM PACKET PO SCH ×2 (08:14→09:00)
[2022-10-04] MEDS: DOCUSATE SODIUM 250 MG CAPSULE PO SCH (08:14)
[2022-10-04] MEDS: MIDODRINE 10 MG TABLET PO SCH ×3 (08:14→16:54)
[2022-10-04] MEDS: POTASSIUM CHLORIDE 10 MEQ CAPSULE PO SCH (08:14)
[2022-10-04] MEDS: CLOPIDOGREL 75 MG TABLET PO SCH (08:14)
[2022-10-04] MEDS: NYSTATIN CREAM 15 GM TUBE TOP SCH ×2 (08:15→21:28)
[2022-10-04] MEDS: ONDANSETRON ODT 4 MG TABLET TL PRN (16:52)
[2022-10-04] MEDS ORDERED: SODIUM CHLORIDE 0.9% 1,000 ML IV STA (17:59)
--- NOTE | 2022-10-04 18:02 | ED Physician Documentation ---
ED Addendum - Addendum Addendum: 10/04/22 18:01 The patient's apparently was reluctant to get out of bed today. Otherwise no significant changes. Lab test this morning showed a improvement in his sodium from 123 to now 128. Calcium still remains low. He is on a calcium supplement. He had been given small amount of IV saline yesterday. I will give a little bit more saline over the evening and repeat labs in the morning. It did not see a orders from the hospitalist so this seemed appropriate for now.
[2022-10-04] MEDS: traZODone 50 MG TABLET PO SCH (21:28)
[2022-10-04] MEDS: ATORVASTATIN 10 MG TABLET PO SCH (21:28)
[2022-10-05] MEDS: oxyCODONE 5 MG TABLET PO SCH ×5 (00:14→23:44)
[2022-10-05] MEDS: ACETAMINOPHEN 325 MG TABLET PO SCH ×5 (00:14→23:44)
[2022-10-05] MEDS: CALCIUM CARBONATE CHEW 500 MG TABLET PO SCH ×3 (06:09→21:47)
[2022-10-05 07:18] LABS: CALCIUM 7.3 mg/dL (8.5-10.3); CREATININE 0.5 mg/dL (0.6-1.2); POTASSIUM 3.5 mmol/L (3.5-5.0)
--- NOTE | 2022-10-05 08:22 | ED Physician Documentation ---
ED Addendum - Addendum Addendum: 10/05/22 08:22 Subjective: Patient sleeping soundly and not awoken for evaluation but nurses notes, vital signs, and labs reviewed. Objective: Sleeping soundly, appears comfortable. Blood pressures have been on the low side again. His sodium has been trending up, but BUN trending down. This would suggest improved volume status. Sodium which had gone down as low as 123 is 130 today. BUN which had gone as high as 19 down to 8 today. Assessment/plan: 1. Orthostatic hypotension, on maximum dosing of midodrine. He is euvolemic. 2. Generalized weakness: Getting PT evaluation, reportedly refused to get out of bed yesterday. 3. Multiple pressure ulcers: Being followed by wound care 4. Chronic atrial fibrillation: Stable on metoprolol 5. Chronic pain: On oxycodone, stable 6. Hyperlipidemia, on a statin, stable 7. Depression on Desyrel and recent addition of escitalopram 8. Chronic anemia, stable 9. Hyponatremia, improving 10. Hypokalemia, stable 11. Constipation, documented by RN to have bowel movement last night 12. Diastolic dysfunction, stable 13. Magnesium hypomagnesemia and hypocalcemia, on supplementation Disposition: Seen by social work msw yesterday they are working with [facility]
[2022-10-05] MEDS: MULTIVITAMIN TABLET PO SCH (10:00)
[2022-10-05] MEDS: CLOPIDOGREL 75 MG TABLET PO SCH (10:00)
[2022-10-05] MEDS: FAMOTIDINE 20 MG TABLET PO SCH ×2 (10:00→21:47)
[2022-10-05] MEDS: POTASSIUM CHLORIDE 10 MEQ CAPSULE PO SCH (10:01)
[2022-10-05] MEDS: MAGNESIUM OXIDE 400 MG TABLET PO SCH (10:02)
[2022-10-05] MEDS: CHOLECALCIFEROL 400 UNIT TABLET PO SCH (10:02)
[2022-10-05] MEDS: ASPIRIN EC 81 MG TABLET PO SCH (10:02)
[2022-10-05] MEDS: MIDODRINE 10 MG TABLET PO SCH ×3 (10:02→17:06)
[2022-10-05] MEDS: DOCUSATE SODIUM 250 MG CAPSULE PO SCH (10:03)
[2022-10-05] MEDS: ESCITALOPRAM 10 MG TABLET PO SCH (10:04)
[2022-10-05] MEDS: FUROSEMIDE 40 MG TABLET PO SCH (10:04)
[2022-10-05] MEDS: polyethylene glycoL 3350 17 GM PACKET PO SCH (10:04)
[2022-10-05] MEDS: FOLIC ACID 1 MG TABLET PO SCH (10:04)
[2022-10-05] MEDS: NYSTATIN CREAM 15 GM TUBE TOP SCH ×2 (10:04→21:47)
[2022-10-05] MEDS ORDERED: HYDROmorphone 1 MG/ML CARPUJECT IVP STA (13:11)
--- NOTE | 2022-10-05 13:12 | ED Physician Documentation ---
ED Addendum - Addendum Addendum: 10/05/22 13:11 Physical therapist notified me that patient was unwilling to work with her today. He was having some abdominal pain. He was assessed again at bedside, complaining of a lot of lower abdominal pain. He is quite tender in the low abdomen and we will scan him. No surgical signs on exam though. 10/05/22 15:12 CT of the abdomen pelvis showing large fecal bolus, chronic distal AAA with chronic distal aortic dissection and moderate bilateral pleural effusions. The fecal impaction is likely the cause of his current abdominal issues and an enema was ordered.
[2022-10-05] MEDS ORDERED: iohexoL-300 100 ML VIAL ONE (13:20)
[2022-10-05] MEDS ORDERED: SALINE ENEMA 133 ML BOTTLE RC STA (13:55)
[2022-10-05] MEDS ORDERED: iohexoL-300 100 ML VIAL IVP ONE (14:18)
--- NOTE | 2022-10-05 14:52 | CT Report ---
PROCEDURE: CT abdomen pelvis with contrast INDICATIONS: IV only, low abd pain CONTRAST: 100ml omni 300 TECHNIQUE: After the administration of contrast, 5 mm thick sections acquired from the diaphragms to the sym physis. 5 mm thick coronal and sagittal reformats were acquired. For radiation dose reduction, the following was used: automated exposure control, adjustment of mA and/or kV according to patient size . COMPARISON: Noncontrasted CT abdomen pelvis 07/22/2022 FINDINGS: Image quality: Excellent. ABDOMEN: Lung bases: Bibasilar pleural effusions, moderate. Heart size normal. Dense coronary artery vascular calcification. Solid organs: Liver and spleen are normal in size and enhancement. Gallbladder is a distended but o therwise normal. No pericholecystic inflammatory change Biliary system is non dilated. Pancreas enh ances normally. No adrenal nodules. Kidneys demonstrate normal size and enhancement, without hydron ephrosis. Small bilateral renal cysts. Prescott catheter in the bladder Peritoneum and bowel: Bowel loops demonstrate normal wall thickness and caliber. No free fluid or a ir. Prior gastric surgery noted. Large fecal bolus in the rectum without obstruction. Nodes and vessels: No distal abdominal aortic aneurysm measures 3 cm in diameter. There is a short se gment dissection extending from the distal aortic bifurcation into the left iliac artery. The common iliac artery measures 2.5 cm. Internal/external iliac artery unremarkable. Right common iliac artery measures 2.5 cm in diameter as well. Miscellaneous: No ventral hernias. PELVIS: Genitourinary: Bladder wall thickness is normal. Miscellaneous: No inguinal hernias or adenopathy. Bones: No suspicious bony lesions. No vertebral body compression fractures. Degenerative disc dise ase and arthropathy in the lower lumbar spine associated with convex right thoracolumbar scoliosis. IMPRESSION: 1. Large fecal bolus the rectum without obstruction. 2. Distal abdominal aortic aneurysm extends into both common iliac arteries. There is also short segm ent aortic dissection extending from the distal aortic bifurcation into the left common iliac artery. Vascular diameters are unchanged from the prior noncontrast CT 07/22/2022. 3. Moderate bilateral pleural effusions Reviewed by: Augusto Mcdowell MD on 10/05/2022 1:51 PM [facility] Approved by: Augusto Mcdowell MD on 10/05/2022 1:51 PM [facility] Station ID: [id number]
[2022-10-05] MEDS: traZODone 50 MG TABLET PO SCH (21:47)
[2022-10-05] MEDS: ATORVASTATIN 10 MG TABLET PO SCH (21:47)
[2022-10-06] MEDS: ACETAMINOPHEN 325 MG TABLET PO SCH ×4 (06:28→23:30)
[2022-10-06] MEDS: CALCIUM CARBONATE CHEW 500 MG TABLET PO SCH ×3 (06:28→22:19)
[2022-10-06] MEDS: oxyCODONE 5 MG TABLET PO SCH ×4 (06:28→23:30)
[2022-10-06] MEDS: MIDODRINE 10 MG TABLET PO SCH ×3 (08:16→19:04)
[2022-10-06] MEDS: MULTIVITAMIN TABLET PO SCH (08:16)
[2022-10-06] MEDS: MAGNESIUM OXIDE 400 MG TABLET PO SCH (08:16)
[2022-10-06] MEDS: POTASSIUM CHLORIDE 10 MEQ CAPSULE PO SCH (08:16)
[2022-10-06] MEDS: CHOLECALCIFEROL 400 UNIT TABLET PO SCH (10:31)
[2022-10-06] MEDS: CLOPIDOGREL 75 MG TABLET PO SCH (10:32)
[2022-10-06] MEDS: ESCITALOPRAM 10 MG TABLET PO SCH (10:32)
[2022-10-06] MEDS: FAMOTIDINE 20 MG TABLET PO SCH ×2 (10:32→22:18)
[2022-10-06] MEDS: FOLIC ACID 1 MG TABLET PO SCH (10:32)
[2022-10-06] MEDS: ASPIRIN EC 81 MG TABLET PO SCH (10:32)
[2022-10-06] MEDS: polyethylene glycoL 3350 17 GM PACKET PO SCH (10:32)
[2022-10-06] MEDS: DOCUSATE SODIUM 250 MG CAPSULE PO SCH (10:32)
[2022-10-06] MEDS: NYSTATIN CREAM 15 GM TUBE TOP SCH ×2 (10:36→22:29)
[2022-10-06] MEDS: ATORVASTATIN 10 MG TABLET PO SCH (22:19)
[2022-10-06] MEDS: traZODone 50 MG TABLET PO SCH (22:19)
[2022-10-07] MEDS: oxyCODONE 5 MG TABLET PO SCH ×4 (05:42→23:43)
[2022-10-07] MEDS: ACETAMINOPHEN 325 MG TABLET PO SCH ×4 (05:43→23:43)
[2022-10-07] MEDS: CALCIUM CARBONATE CHEW 500 MG TABLET PO SCH ×3 (05:43→21:59)
[2022-10-07 07:39] LABS: BASOPHILS # (AUTO) 0.1 10^3/uL (0.0-0.1); BASOPHILS % (AUTO) 0.6 %; EOSINOPHILS # (AUTO) 0.2 10^3/uL (0.0-0.7); EOSINOPHILS % (AUTO) 2.7 %; HCT - HEMATOCRIT 31.4 % (42.0-52.0); HGB - HEMOGLOBIN 10.5 g/dL (14.0-18.0); LYMPHOCYTES # (AUTO) 1.1 10^3/uL (1.5-3.5); LYMPHOCYTES % (AUTO) 13.3 %; MEAN CORPUSCULAR HEMOGLOBIN 29.6 pg (27.0-31.0); MEAN CORPUSCULAR HGB CONC 33.4 g/dL (32.0-36.0); MEAN CORPUSCULAR VOLUME 88.5 fL (80.0-94.0); MEAN PLATELET VOLUME 8.3 fL (7.4-11.4); MONOCYTES # (AUTO) 0.7 10^3/uL (0.0-1.0); MONOCYTES % (AUTO) 8.3 %; NEUTROPHILS # (AUTO) 5.9 10^3/uL (1.5-6.6); NEUTROPHILS % (AUTO) 74.8 %; PLT - PLATELET COUNT 360 10^3/uL (130-450); RED BLOOD COUNT 3.55 10^6/uL (4.70-6.10); RED CELL DISTRIBUTION WIDTH 17.2 % (12.0-15.0); WHITE BLOOD COUNT 7.9 x10^3/uL (4.8-10.8)
[2022-10-07 07:47] LABS: CALCIUM 7.5 mg/dL (8.5-10.3); CREATININE 0.6 mg/dL (0.6-1.2); MAGNESIUM 1.7 mg/dL (1.7-2.8); POTASSIUM 4.1 mmol/L (3.5-5.0)
[2022-10-07] MEDS: POTASSIUM CHLORIDE 10 MEQ CAPSULE PO SCH (08:14)
[2022-10-07] MEDS: MAGNESIUM OXIDE 400 MG TABLET PO SCH (08:14)
[2022-10-07] MEDS: MIDODRINE 10 MG TABLET PO SCH ×3 (08:15→18:09)
[2022-10-07] MEDS: MULTIVITAMIN TABLET PO SCH (08:15)
[2022-10-07] MEDS: FAMOTIDINE 20 MG TABLET PO SCH ×2 (09:53→21:58)
[2022-10-07] MEDS: polyethylene glycoL 3350 17 GM PACKET PO SCH (09:53)
[2022-10-07] MEDS: ESCITALOPRAM 10 MG TABLET PO SCH (09:54)
[2022-10-07] MEDS: CHOLECALCIFEROL 400 UNIT TABLET PO SCH (09:54)
[2022-10-07] MEDS: ASPIRIN EC 81 MG TABLET PO SCH (09:54)
[2022-10-07] MEDS: CLOPIDOGREL 75 MG TABLET PO SCH (09:54)
[2022-10-07] MEDS: DOCUSATE SODIUM 250 MG CAPSULE PO SCH (09:54)
[2022-10-07] MEDS: FOLIC ACID 1 MG TABLET PO SCH (09:54)
[2022-10-07] MEDS: NYSTATIN CREAM 15 GM TUBE TOP SCH ×2 (09:56→21:57)
[2022-10-07] MEDS: FUROSEMIDE 40 MG TABLET PO SCH (10:10)
[2022-10-07] MEDS: ONDANSETRON ODT 4 MG TABLET TL PRN (10:10)
--- NOTE | 2022-10-07 12:13 | ED Physician Documentation ---
ED Addendum - Addendum Addendum: Patient appears well, laying supine in bed. Reports "mucho dolor" and points to his abdomen. Vital signs reviewed over the last 24 hours. There have been no fevers. He continues to have soft but unchanged blood pressures typically in the 90s over 50s/60s. Recently was noted to be hyponatremic. Was placed on a 3 L volume restriction preached 24 hours. He briefly did receive a sodium infusion. A CT of the abdomen 48 hours ago showed large fecal impaction within the colon. He has been administered an enema and his reports to me that he had a very large bowel movement. Labs were reviewed today. No significant leukocytosis. Sodium is 129 essentially static over the last 48 hours. Patient is alert without focal deficits. Social work continuing to attempt to find long-term care facility
[2022-10-07] MEDS: ATORVASTATIN 10 MG TABLET PO SCH (21:58)
[2022-10-07] MEDS: traZODone 50 MG TABLET PO SCH (21:59)
[2022-10-08] MEDS: ACETAMINOPHEN 325 MG TABLET PO SCH ×3 (05:38→18:06)
[2022-10-08] MEDS: CALCIUM CARBONATE CHEW 500 MG TABLET PO SCH ×3 (05:38→21:59)
[2022-10-08] MEDS: oxyCODONE 5 MG TABLET PO SCH ×3 (05:38→18:06)
[2022-10-08] MEDS: POTASSIUM CHLORIDE 10 MEQ CAPSULE PO SCH (08:14)
[2022-10-08] MEDS: FOLIC ACID 1 MG TABLET PO SCH (08:14)
[2022-10-08] MEDS: CLOPIDOGREL 75 MG TABLET PO SCH (08:14)
[2022-10-08] MEDS: ESCITALOPRAM 10 MG TABLET PO SCH (08:14)
[2022-10-08] MEDS: MAGNESIUM OXIDE 400 MG TABLET PO SCH (08:14)
[2022-10-08] MEDS: MIDODRINE 10 MG TABLET PO SCH ×3 (08:14→17:00)
[2022-10-08] MEDS: MULTIVITAMIN TABLET PO SCH (08:15)
[2022-10-08] MEDS: CHOLECALCIFEROL 400 UNIT TABLET PO SCH (08:15)
[2022-10-08] MEDS: ASPIRIN EC 81 MG TABLET PO SCH (08:15)
[2022-10-08] MEDS: FAMOTIDINE 20 MG TABLET PO SCH ×2 (08:31→21:59)
[2022-10-08] MEDS: NYSTATIN CREAM 15 GM TUBE TOP SCH ×2 (08:58→22:00)
[2022-10-08] MEDS: DOCUSATE SODIUM 250 MG CAPSULE PO SCH (09:00)
[2022-10-08] MEDS: polyethylene glycoL 3350 17 GM PACKET PO SCH (09:01)
--- NOTE | 2022-10-08 16:11 | ED Physician Documentation ---
ED Addendum - Addendum Addendum: 10/08/22 17:45 I personally evaluated the patient. He is recently had his dressings changed by wound care yesterday. I have reviewed his vital signs and he continues to have soft but essentially unchanged blood pressures. He does continue with a 3 L fluid restriction a day. I examined his abdomen and found that there was no significant abdominal tenderness. He was awake and pleasant in the room. He continues to be very weak unable to get out of bed. Social work is continuing to evaluate the patient to find long-term placement which is proving difficult. I will order a repeat of his labs in the morning for reevaluation of his serum sodiums. He appears to be eating his meals with about 50% intake each meal.
[2022-10-08] MEDS: traZODone 50 MG TABLET PO SCH (21:58)
[2022-10-08] MEDS: ATORVASTATIN 10 MG TABLET PO SCH (21:58)
[2022-10-09] MEDS: ACETAMINOPHEN 325 MG TABLET PO SCH ×4 (00:06→17:40)
[2022-10-09] MEDS: oxyCODONE 5 MG TABLET PO SCH ×4 (00:06→17:40)
[2022-10-09] MEDS: CALCIUM CARBONATE CHEW 500 MG TABLET PO SCH ×3 (05:40→22:10)
[2022-10-09 08:39] LABS: CALCIUM 7.8 mg/dL (8.5-10.3); CREATININE 0.4 mg/dL (0.6-1.2); POTASSIUM 4.2 mmol/L (3.5-5.0)
[2022-10-09] MEDS: FOLIC ACID 1 MG TABLET PO SCH (09:23)
[2022-10-09] MEDS: FAMOTIDINE 20 MG TABLET PO SCH ×2 (09:23→22:09)
[2022-10-09] MEDS: MULTIVITAMIN TABLET PO SCH (09:23)
[2022-10-09] MEDS: MIDODRINE 10 MG TABLET PO SCH ×3 (09:23→17:40)
[2022-10-09] MEDS: ESCITALOPRAM 10 MG TABLET PO SCH (09:24)
[2022-10-09] MEDS: CLOPIDOGREL 75 MG TABLET PO SCH (09:24)
[2022-10-09] MEDS: CHOLECALCIFEROL 400 UNIT TABLET PO SCH (09:24)
[2022-10-09] MEDS: POTASSIUM CHLORIDE 10 MEQ CAPSULE PO SCH (09:24)
[2022-10-09] MEDS: polyethylene glycoL 3350 17 GM PACKET PO SCH (09:24)
[2022-10-09] MEDS: ASPIRIN EC 81 MG TABLET PO SCH (09:24)
[2022-10-09] MEDS: DOCUSATE SODIUM 250 MG CAPSULE PO SCH (09:24)
[2022-10-09] MEDS: MAGNESIUM OXIDE 400 MG TABLET PO SCH (09:24)
[2022-10-09] MEDS: NYSTATIN CREAM 15 GM TUBE TOP SCH ×2 (09:25→22:10)
[2022-10-09] MEDS: FUROSEMIDE 40 MG TABLET PO SCH (09:29)
[2022-10-09] MEDS: MIN OIL/DIMETHICON/COCONUT OIL 92 GM TUBE TOP PRN (13:30)
--- NOTE | 2022-10-09 22:00 | ED Physician Documentation ---
ED Addendum - Addendum Addendum: 10/09/22 21:57 Subjective: No new events reported by nursing staff. Reportedly he is eating about 50% of meals. He continues to be seen by wound care. He has had a bowel movement Exam: Gen: Alert pleasant [place]-speaking male CV/Resp: Lungs are clear. Mildly diminished breath sounds in the bases. Nonlabored. Regular rate and rhythm. Abdomen: Soft nontender. Extremities. Extensive venous stasis ulcers on bilateral lower extremities being cared for by the wound clinic. His legs are covered in bandages. Vitals: Last 24-hour vitals have been reviewed. There has been no fever. He continues with soft but stable blood pressures which appear to be his normal. meds:Medications were reviewed. He remains on aspirin, Plavix as well as famotidine. Every other day diuresis. Adjustments are being made to his blood pressure medications based on his softer than expected blood pressures Assessment and plan. This is a chronically debilitated bedbound gentleman who can no longer be cared for safely at home. Social work is continuing to look for longer-term placement. Chronic medical problems include: 1. Muscular deconditioning and generalized weakness 2. multiple pressure ulcers and venous stasis dermatitis being followed by the wound clinic 3. orthostatic hypotension being treated with midodrine. 4. chronic atrial fibrillation. He is no longer anticoagulated due to high fall risk and overall poor status. 5. chronic pain syndrome on as needed oxycodone. 6. hyperlipidemia on a statin 7. depression and anxiety. He is on an SSRI as well as Desyrel 8. chronic anemia 9. intermittent hyponatremia. 10/09/22 22:01
[2022-10-09] MEDS: ATORVASTATIN 10 MG TABLET PO SCH (22:09)
[2022-10-09] MEDS: traZODone 50 MG TABLET PO SCH (22:09)
[2022-10-10] MEDS: ACETAMINOPHEN 325 MG TABLET PO SCH ×4 (00:11→17:46)
[2022-10-10] MEDS: oxyCODONE 5 MG TABLET PO SCH ×4 (00:12→17:46)
[2022-10-10] MEDS: CALCIUM CARBONATE CHEW 500 MG TABLET PO SCH ×3 (06:02→21:45)
[2022-10-10] MEDS: MIN OIL/DIMETHICON/COCONUT OIL 92 GM TUBE TOP PRN (06:05)
[2022-10-10] MEDS: FOLIC ACID 1 MG TABLET PO SCH (08:18)
[2022-10-10] MEDS: MAGNESIUM OXIDE 400 MG TABLET PO SCH (08:18)
[2022-10-10] MEDS: CHOLECALCIFEROL 400 UNIT TABLET PO SCH (08:18)
[2022-10-10] MEDS: MULTIVITAMIN TABLET PO SCH (08:18)
[2022-10-10] MEDS: CLOPIDOGREL 75 MG TABLET PO SCH (08:19)
[2022-10-10] MEDS: MIDODRINE 10 MG TABLET PO SCH ×3 (08:19→16:45)
[2022-10-10] MEDS: FAMOTIDINE 20 MG TABLET PO SCH ×2 (08:19→21:46)
[2022-10-10] MEDS: POTASSIUM CHLORIDE 10 MEQ CAPSULE PO SCH (08:20)
[2022-10-10] MEDS: ASPIRIN EC 81 MG TABLET PO SCH (08:21)
[2022-10-10] MEDS: ESCITALOPRAM 10 MG TABLET PO SCH (08:21)
[2022-10-10] MEDS: DOCUSATE SODIUM 250 MG CAPSULE PO SCH (08:21)
[2022-10-10] MEDS: NYSTATIN CREAM 15 GM TUBE TOP SCH ×2 (08:21→21:47)
[2022-10-10] MEDS: polyethylene glycoL 3350 17 GM PACKET PO SCH (08:22)
--- NOTE | 2022-10-10 12:14 | ED Physician Documentation ---
ED Addendum - Addendum Addendum: 10/10/22 12:08 Subjective: Patient seen and examined in room. He is alert well-appearing. His is at the bedside and he is eating lunch. He denies any abdominal pain or chest pain. Reports that he had a very large bowel movement yesterday. Vitals: Vitals were reviewed over the last 24 hours. He appears to be having a softer blood pressures in the 80s over 50s. He is no longer on any antihypertensive medication or metoprolol for A. fib rate control. He does receive midodrine twice daily. It appears that his last dose of Lasix was held secondary to the soft blood pressures. Exam: gen: Alert well-appearing CV/respiratory: Clear to auscultation. Regular rate and rhythm. 2+ pulses radial extremities with brisk cap refill Abdomen: Soft abdomen nontender good bowel sounds Derm and extremities: Lower extremities are dressed and bandages per wound therapy. Other chronic medical problems include: 1. Muscular deconditioning and generalized weakness 2. Multiple pressure ulcers and venous stasis dermatitis being followed by the wound clinic 3. Orthostatic hypotension being treated with midodrine. He is no longer on any rate control or antihypertensive agents 4. Chronic atrial fibrillation. He is no longer anticoagulated due to high risk fall and overall poor functional status 5. Chronic pain syndrome. He is currently receiving oxycodone scheduled every 6 hours. This may need to be adjusted as he seems to have well-controlled pain but continues to have softer blood pressures. He however does appear to have a resolving constipation and is having bowel movements 6. Hyperlipidemia he remains on a statin 7. Depression and anxiety. He is on an SSRI as well as Dexoryl No. 8 chronic anemia for which we are continuing to slowly and occasionally check his CBCs. Anemia likely continue to progress given the chronic wounds 9. Intermittent hyponatremia. Serum sodium was 130 yesterday in the a.m. Will recheck BMP tomorrow in a.m. Assessment and plan: Continues to be a chronically debilitated bedbound gentleman who can no longer be cared for safely at home. Social work continues to look for longer-term placement
[2022-10-10 21:09] LABS: CALCIUM 7.5 mg/dL (8.5-10.3); CREATININE 0.6 mg/dL (0.6-1.2); POTASSIUM 4.5 mmol/L (3.5-5.0)
[2022-10-10] MEDS: ATORVASTATIN 10 MG TABLET PO SCH (21:45)
[2022-10-10] MEDS: traZODone 50 MG TABLET PO SCH (21:46)
[2022-10-11] MEDS: oxyCODONE 5 MG TABLET PO SCH ×4 (00:15→17:42)
[2022-10-11] MEDS: ACETAMINOPHEN 325 MG TABLET PO SCH ×4 (00:15→17:42)
[2022-10-11] MEDS: CALCIUM CARBONATE CHEW 500 MG TABLET PO SCH ×3 (06:17→20:51)
[2022-10-11] MEDS: MULTIVITAMIN TABLET PO SCH (08:23)
[2022-10-11] MEDS: CHOLECALCIFEROL 400 UNIT TABLET PO SCH (08:23)
[2022-10-11] MEDS: MIDODRINE 10 MG TABLET PO SCH ×3 (08:24→17:10)
[2022-10-11] MEDS: CLOPIDOGREL 75 MG TABLET PO SCH (08:24)
[2022-10-11] MEDS: MAGNESIUM OXIDE 400 MG TABLET PO SCH (08:24)
[2022-10-11] MEDS: FOLIC ACID 1 MG TABLET PO SCH (08:24)
[2022-10-11] MEDS: POTASSIUM CHLORIDE 10 MEQ CAPSULE PO SCH (08:24)
[2022-10-11] MEDS: ASPIRIN EC 81 MG TABLET PO SCH (08:24)
[2022-10-11] MEDS: ESCITALOPRAM 10 MG TABLET PO SCH (08:25)
[2022-10-11] MEDS: DOCUSATE SODIUM 250 MG CAPSULE PO SCH (08:25)
[2022-10-11] MEDS: polyethylene glycoL 3350 17 GM PACKET PO SCH (08:28)
[2022-10-11] MEDS: NYSTATIN CREAM 15 GM TUBE TOP SCH ×2 (08:28→20:52)
[2022-10-11] MEDS: FAMOTIDINE 20 MG TABLET PO SCH ×3 (08:41→20:51)
[2022-10-11] MEDS: FUROSEMIDE 40 MG TABLET PO SCH (10:02)
--- NOTE | 2022-10-11 19:09 | ED Physician Documentation ---
ED Addendum - Addendum Addendum: 10/11/22 19:08 I was not able to see the patient in person today. But discussed with Dr Pizarro who did. He has reportedly expressed interest in hospice and SW says he is being considered by a facilty. Since he is interested in hospice, I had ordered labs for today, but cancelled them when this was discovered.
[2022-10-11] MEDS: ATORVASTATIN 10 MG TABLET PO SCH (20:51)
[2022-10-11] MEDS: traZODone 50 MG TABLET PO SCH (20:51)
[2022-10-12] MEDS: ACETAMINOPHEN 325 MG TABLET PO SCH ×4 (00:20→18:38)
[2022-10-12] MEDS: oxyCODONE 5 MG TABLET PO SCH ×4 (00:20→18:37)
[2022-10-12] MEDS: CALCIUM CARBONATE CHEW 500 MG TABLET PO SCH ×3 (06:00→21:33)
--- NOTE | 2022-10-12 08:57 | ED Physician Documentation ---
ED Addendum - Addendum Addendum: 10/12/22 08:56 Seen and examined at the bedside but he was lying with his head under blankets not wanting to be disturbed. Given current goals of care I was not too aggressive with that. Social work notes from yesterday reviewed, reportedly was to be evaluated by a senior patient account representative from [facility], I do not yet know the outcome of that assessment.
[2022-10-12] MEDS: FAMOTIDINE 20 MG TABLET PO SCH ×2 (09:26→21:33)
[2022-10-12] MEDS: CLOPIDOGREL 75 MG TABLET PO SCH (09:26)
[2022-10-12] MEDS: ESCITALOPRAM 10 MG TABLET PO SCH (09:26)
[2022-10-12] MEDS: MAGNESIUM OXIDE 400 MG TABLET PO SCH (09:26)
[2022-10-12] MEDS: POTASSIUM CHLORIDE 10 MEQ CAPSULE PO SCH (09:27)
[2022-10-12] MEDS: MULTIVITAMIN TABLET PO SCH (09:27)
[2022-10-12] MEDS: ASPIRIN EC 81 MG TABLET PO SCH (09:27)
[2022-10-12] MEDS: MIDODRINE 10 MG TABLET PO SCH ×3 (09:27→17:14)
[2022-10-12] MEDS: CHOLECALCIFEROL 400 UNIT TABLET PO SCH (09:27)
[2022-10-12] MEDS: FOLIC ACID 1 MG TABLET PO SCH (09:27)
[2022-10-12] MEDS: polyethylene glycoL 3350 17 GM PACKET PO SCH (09:28)
[2022-10-12] MEDS: DOCUSATE SODIUM 250 MG CAPSULE PO SCH (09:28)
[2022-10-12] MEDS: ZINC OXIDE 20% OINT 30 GM TUBE TOP PRN (11:24)
[2022-10-12] MEDS: NYSTATIN CREAM 15 GM TUBE TOP SCH ×2 (13:36→21:33)
[2022-10-12] MEDS: ATORVASTATIN 10 MG TABLET PO SCH (21:33)
[2022-10-12] MEDS: traZODone 50 MG TABLET PO SCH (21:33)
[2022-10-13] MEDS: ACETAMINOPHEN 325 MG TABLET PO SCH ×5 (00:19→23:53)
[2022-10-13] MEDS: oxyCODONE 5 MG TABLET PO SCH ×5 (00:19→23:53)
[2022-10-13] MEDS: CALCIUM CARBONATE CHEW 500 MG TABLET PO SCH (06:23)
--- NOTE | 2022-10-13 07:48 | PROVIDER PROGRESS NOTE ---
Hospitalist Cross-cover Note - Cross-Cover Note Cross-Cover Note: October 13, 2022 7:44 AM Mr. Cota had been refusing to work with physical therapy several days in a row. I have been asked by the ER provider to provide an opinion about what may be going on with this patient. As I sat down to have a conversation with he and his about what was going on, he stated that he was "done". He broadens that statement by describing that the quality of his life has deteriorated steadily over the last 2 to 3 years. And sharply declined over the last 6 months. He says he has no ambition or desire to do the work that would require to get better. He makes the point that he would do a lot of work to get better (he refers to physical therapy) but he knows that the overall prognosis for someone in his situation is poor. So he feels like he would do a lot of work to only gain a few months of life that would still not meet the standards of what he defines a good quality of life. And requests that he would like to just stop now. He would like to transition to comfort measures. He does not want lab draws, vital signs. He does not want x-rays. If he wants to eat he said he will eat. But he is tired of people making him eat. He just wants "tranquility and peace so that I can peacefully." His is at the bedside with this conversation. She is with him on a daily basis. I asked her to please add her thoughts to this conversation. She says that she wants to support her . She validates his point that he has been deteriorating and that he has no quality of life. Not for what they feel is important. And while she is weeping when she says this, she says that it is time to stop "this". And "this" is being in the hospital, trying to work with rehab and nutrition services. She agrees with what he says and "what is the point". This hospitalist is bilingual. I was able to do this conversation without the support of translation services Active Medications Acetaminophen (Acetaminophen 325 Mg Tablet) 650 mg PO Q6HR [facility] Last Admin: 10/13/22 06:24 Dose: 650 mg Aspirin (Aspirin Ec 81 Mg Tablet) 81 mg PO DAILY [facility] Last Admin: 10/12/22 09:27 Dose: 81 mg Atorvastatin Calcium (Atorvastatin 10 Mg Tablet) 10 mg PO QPM [facility] Last Admin: 10/12/22 21:33 Dose: 10 mg Calcium Carbonate/Glycine (Calcium Carbonate Chew 500 Mg Tablet) 500 mg PO TID [facility] Last Admin: 10/13/22 06:23 Dose: 500 mg Cholecalciferol (Cholecalciferol 400 Unit Tablet) 800 unit PO DAILY [facility] Last Admin: 10/12/22 09:27 Dose: 800 unit Clopidogrel Bisulfate (Clopidogrel 75 Mg Tablet) 75 mg PO DAILY [facility] Last Admin: 10/12/22 09:26 Dose: 75 mg Diclofenac Sodium (Diclofenac Sodium 1% Gel 50 Gm Tube) 2 gm TOP QID PRN PRN Reason: PAIN Last Admin: 09/29/22 15:46 Dose: 2 gm Docusate Sodium (Docusate Sodium 250 Mg Capsule) 250 - 500 mg PO DAILY [facility] Last Admin: 10/12/22 09:28 Dose: 250 mg Escitalopram Oxalate (Escitalopram 10 Mg Tablet) 10 mg PO DAILY [facility] Last Admin: 10/12/22 09:26 Dose: 10 mg Famotidine (Famotidine 20 Mg Tablet) 40 mg PO BID [facility] Last Admin: 10/12/22 21:33 Dose: 40 mg Folic Acid (Folic Acid 1 Mg Tablet) 1 mg PO DAILY [facility] Last Admin: 10/12/22 09:27 Dose: 1 mg Furosemide (Furosemide 40 Mg Tablet) 40 mg PO Q48H [facility] Last Admin: 10/11/22 10:02 Dose: 40 mg Magnesium Oxide (Magnesium Oxide 400 Mg Tablet) 400 mg PO DAILYWM [facility] Last Admin: 10/12/22 09:26 Dose: 400 mg Midodrine (Midodrine 10 Mg Tablet) 10 mg PO TIDWM [facility] Last Admin: 10/12/22 17:14 Dose: 10 mg Mineral Oil (Min Oil/Dimethicon/Coconut Oil 92 Gm Tube) 1 applic TOP PRN PRN PRN Reason: Skin Care Last Admin: 10/10/22 06:05 Dose: 1 applic Multi-Ingredient Ointment (Zinc Oxide 20% Oint 30 Gm Tube) 1 applic TOP PRN PRN PRN Reason: Skin Care Last Admin: 10/12/22 11:24 Dose: 1 applic Multivitamins (Multivitamin Tablet) 1 tab PO DAILYWM [facility] Last Admin: 10/12/22 09:27 Dose: 1 tab Nystatin (Nystatin Cream 15 Gm Tube) 1 applic TOP BID [facility] Last Admin: 10/12/22 21:33 Dose: 1 applic Ondansetron HCl (Ondansetron Odt 4 Mg Tablet) 4 mg TL Q6HR PRN PRN Reason: Nausea / Vomiting Last Admin: 10/07/22 10:10 Dose: 4 mg Oxycodone HCl (Oxycodone 5 Mg Tablet) 10 mg PO Q6HR [facility] Last Admin: 10/13/22 06:24 Dose: 10 mg Polyethylene Glycol (Polyethylene Glycol 3350 17 Gm Packet) 17 gm PO DAILY [facility] Last Admin: 10/12/22 09:28 Dose: Not Given Potassium Chloride (Potassium Chloride 10 Meq Capsule) 10 meq PO DAILYWM [facility] Last Admin: 10/12/22 09:27 Dose: 10 meq Trazodone HCl (Trazodone 50 Mg Tablet) 25 mg PO QPM [facility] Last Admin: 10/12/22 21:33 Dose: 25 mg Aspirin [Aspirin EC] 81 mg PO DAILY 10/21/14 Clopidogrel [Plavix] 75 mg PO DAILY 10/21/14 Diclofenac Sodium [Voltaren Arthritis Pain] 2 gm TP Q6H PRN 07/04/22 Famotidine [Pepcid] 40 mg PO BID 07/04/22 Furosemide [Lasix] 80 mg PO DAILY 09/04/22 Metoprolol Succinate 100 mg PO DAILY 09/04/22 Oxycodone HCl/Acetaminophen [Percocet 10-325 mg Tablet] 1 tab PO QID PRN 09/04/22 lisinopriL [Lisinopril] 40 mg PO DAILY 09/04/22 Temperature is 36.8. Heart rate 64. Blood pressure 82/54. Respirations 14. 83% on room air. Since stay in the emergency room he has been hypotensive with little response to the midodrine He is a pale, fatigued male wearing glasses. He prefers the room to stay in darkness. And if we do turn on the lights in his ER room he puts the sheets and blankets over his face. TV is on constantly during the day. Neck is supple Lungs have slow, shallow, unlabored respiration with diminished breath sounds at the bases Regular rate and rhythm Abdomen is soft, nontender, hypoactive bowel sounds. He has truncal stability to sit up. And does get out of bed once a day to sit in chair. When I first met him with his first acute care admission for weakness, he did not have truncal stability. Just sitting him up without any aid would result in him sliding over to the right or to the left. At his best he was able to sit to stand to pivot when he went to rehab. Since that rehab stay then he went home, was readmitted here, discharged f for half a day and then return to the emergency room, he has steadily lost ground with regards to strength. This is in spite of physical therapy trying to work with him on a daily basis and he has refused. Skin has breakdowns. He refuses nelli care at times. I have reminded him that while we want to make him comfortable, were not going to let him have more skin breakdown and be covered in stool because he refuses. He had developed skin breakdown after discharge from rehab facility. Was admitted with sacral pressure ulcers. He also has partial-thickness skin loss to the right lower extremity and is wrapped in bandages. Pressure ulcers to the right great and second toes and left heel. These were all present before he was in the emergency room and before his acute care stay. Assessment/plan This gentleman has multiple medical problems that are chronic, relatively stable. This includes orthostatic hypotension, hyperlipidemia, coronary artery disease, atrial fibrillation, chronic leg wounds due to venous stasis dermatitis, GERD, urinary retention and most likely depression. We first admitted him to our service in July 2022. At that time he had a UTI and had generalized weakness. But was already describing a gradual reduction in functional status. At that point in time he been slowly failing at home in spite of an electric wheelchair and 24/7 care from his . His overall medical problems of sepsis with a UTI, A. fib with RVR, and treatment of his chronic wounds and pressure changes were done. He was discharged July 30 and [facility]. He left that facility rather than be discharged. He felt like they were ignoring him, and what ever strength he had gained with PT and his acute care stay, he lost ground. He had only been out of rehab, at home for a day, when he returned September 03 due to generalized weakness. And his could not take care of him. He continued to have orthostatic hypotension and work-up ensued. He was treated for dehydration, hyponatremia, hypocalcemia and his leg wounds were taking care of. He was finally stabilized for his problems including refusal to eat, protein calorie malnutrition, and we obtained placement for him to go to rehab again. He refused. Multiple conversations were had with this gentleman to let them know that he was not doing well. And his only chance for improving was to get stronger to return to home because he refused permanent placement. His could not take care of him in this condition. He continued to refuse and reluctantly accepted him home for discharge. He lasted at home half a day when he realized that he was not able to be taken care of by his . So he was discharged and returned to the ER September 11. Since that time he has been in emergency room patient and has been awaiting placement at a long-term care facility. He has no acute medical needs other than his chronic orthostatic hypotension that we have addressed with fluid boluses and midodrine. His atrial fibrillation is controlled. He has occasional hyponatremia due to his lack of p.o. intake. Has received intermittent normal saline. He is getting wound care on a regular basis. He is refusing to eat. Refusing to work with physical therapy. As such we will honor the patient's wishes for comfort measures only. I have checked back with him several times over the course of the day and he has not changed his mind. He said he stopped felt this way for a long time. His is always at the bedside and listens to these conversations and supports her 's decision.
[2022-10-13] MEDS: CHOLECALCIFEROL 400 UNIT TABLET PO SCH (08:03)
[2022-10-13] MEDS: CLOPIDOGREL 75 MG TABLET PO SCH (08:03)
[2022-10-13] MEDS: FOLIC ACID 1 MG TABLET PO SCH (08:03)
[2022-10-13] MEDS: ASPIRIN EC 81 MG TABLET PO SCH (08:03)
[2022-10-13] MEDS: FAMOTIDINE 20 MG TABLET PO SCH ×2 (08:03→20:36)
[2022-10-13] MEDS: POTASSIUM CHLORIDE 10 MEQ CAPSULE PO SCH (08:04)
[2022-10-13] MEDS: MIDODRINE 10 MG TABLET PO SCH ×3 (08:04→16:52)
[2022-10-13] MEDS: ESCITALOPRAM 10 MG TABLET PO SCH (08:04)
[2022-10-13] MEDS: MAGNESIUM OXIDE 400 MG TABLET PO SCH (08:04)
[2022-10-13] MEDS: MULTIVITAMIN TABLET PO SCH (08:04)
[2022-10-13] MEDS: DOCUSATE SODIUM 250 MG CAPSULE PO SCH (08:06)
[2022-10-13] MEDS: polyethylene glycoL 3350 17 GM PACKET PO SCH (08:07)
[2022-10-13] MEDS: NYSTATIN CREAM 15 GM TUBE TOP SCH ×2 (08:07→20:37)
[2022-10-13] MEDS: FUROSEMIDE 40 MG TABLET PO SCH (08:07)
[2022-10-13] MEDS ORDERED: ATROPINE 1% OPHTH DROPS 2 ML SL PRN (08:14)
[2022-10-13] MEDS ORDERED: LOPERAMIDE 2 MG CAPSULE PO PRN (08:14)
[2022-10-13] MEDS ORDERED: BACLOFEN 10 MG TABLET PO PRN (08:14)
[2022-10-13] MEDS: MORPHINE SOL 10 MG/0.5 ML ORAL SYRINGE PO PRN ×6 (10:13→23:53)
[2022-10-13] MEDS: traZODone 50 MG TABLET PO SCH (20:36)
[2022-10-14] MEDS: MORPHINE SOL 10 MG/0.5 ML ORAL SYRINGE PO PRN ×4 (03:04→13:35)
[2022-10-14] MEDS: oxyCODONE 5 MG TABLET PO SCH ×3 (07:04→19:13)
[2022-10-14] MEDS: ACETAMINOPHEN 325 MG TABLET PO SCH ×3 (07:04→19:14)
[2022-10-14] MEDS: ESCITALOPRAM 10 MG TABLET PO SCH (08:33)
[2022-10-14] MEDS: FAMOTIDINE 20 MG TABLET PO SCH ×2 (08:33→21:38)
[2022-10-14] MEDS: POTASSIUM CHLORIDE 10 MEQ CAPSULE PO SCH (08:33)
[2022-10-14] MEDS: ASPIRIN EC 81 MG TABLET PO SCH (08:33)
[2022-10-14] MEDS: MIDODRINE 10 MG TABLET PO SCH ×3 (08:33→17:16)
[2022-10-14] MEDS: CLOPIDOGREL 75 MG TABLET PO SCH (08:33)
[2022-10-14] MEDS: NYSTATIN CREAM 15 GM TUBE TOP SCH ×2 (08:36→21:38)
[2022-10-14] MEDS: DOCUSATE SODIUM 250 MG CAPSULE PO SCH (11:15)
[2022-10-14] MEDS: polyethylene glycoL 3350 17 GM PACKET PO SCH (11:15)
[2022-10-14] MEDS: traZODone 50 MG TABLET PO SCH (21:38)
[2022-10-15] MEDS: ACETAMINOPHEN 325 MG TABLET PO SCH ×4 (00:55→17:27)
[2022-10-15] MEDS: MORPHINE SOL 10 MG/0.5 ML ORAL SYRINGE PO PRN ×8 (00:55→21:29)
[2022-10-15] MEDS: oxyCODONE 5 MG TABLET PO SCH ×4 (00:55→17:27)
[2022-10-15] MEDS: ASPIRIN EC 81 MG TABLET PO SCH (08:59)
[2022-10-15] MEDS: DOCUSATE SODIUM 250 MG CAPSULE PO SCH (08:59)
[2022-10-15] MEDS: polyethylene glycoL 3350 17 GM PACKET PO SCH (08:59)
[2022-10-15] MEDS: POTASSIUM CHLORIDE 10 MEQ CAPSULE PO SCH (08:59)
[2022-10-15] MEDS: FAMOTIDINE 20 MG TABLET PO SCH ×2 (08:59→21:29)
[2022-10-15] MEDS: CLOPIDOGREL 75 MG TABLET PO SCH (09:00)
[2022-10-15] MEDS: MIDODRINE 10 MG TABLET PO SCH ×3 (09:00→17:28)
[2022-10-15] MEDS: ESCITALOPRAM 10 MG TABLET PO SCH (09:00)
[2022-10-15] MEDS: FUROSEMIDE 40 MG TABLET PO SCH (09:02)
[2022-10-15] MEDS: NYSTATIN CREAM 15 GM TUBE TOP SCH ×2 (09:02→21:30)
[2022-10-15] MEDS: traZODone 50 MG TABLET PO SCH (21:29)
[2022-10-16] MEDS: oxyCODONE 5 MG TABLET PO SCH ×4 (01:14→18:47)
[2022-10-16] MEDS: ACETAMINOPHEN 325 MG TABLET PO SCH ×4 (01:14→18:47)
[2022-10-16] MEDS: MORPHINE SOL 10 MG/0.5 ML ORAL SYRINGE PO PRN ×7 (01:15→17:02)
[2022-10-16] MEDS: FAMOTIDINE 20 MG TABLET PO SCH ×2 (08:03→21:54)
[2022-10-16] MEDS: POTASSIUM CHLORIDE 10 MEQ CAPSULE PO SCH (08:03)
[2022-10-16] MEDS: MIDODRINE 10 MG TABLET PO SCH ×3 (08:03→17:01)
[2022-10-16] MEDS: DOCUSATE SODIUM 250 MG CAPSULE PO SCH (08:04)
[2022-10-16] MEDS: ESCITALOPRAM 10 MG TABLET PO SCH (08:04)
[2022-10-16] MEDS: CLOPIDOGREL 75 MG TABLET PO SCH (08:04)
[2022-10-16] MEDS: ASPIRIN EC 81 MG TABLET PO SCH (08:04)
[2022-10-16] MEDS: polyethylene glycoL 3350 17 GM PACKET PO SCH (08:06)
[2022-10-16] MEDS: NYSTATIN CREAM 15 GM TUBE TOP SCH ×2 (08:07→21:55)
[2022-10-16] MEDS: ONDANSETRON ODT 4 MG TABLET TL PRN (17:06)
[2022-10-16] MEDS: traZODone 50 MG TABLET PO SCH (21:54)
[2022-10-17] MEDS: ACETAMINOPHEN 325 MG TABLET PO SCH ×4 (00:37→18:02)
[2022-10-17] MEDS: oxyCODONE 5 MG TABLET PO SCH ×4 (00:38→18:02)
[2022-10-17] MEDS: polyethylene glycoL 3350 17 GM PACKET PO SCH (07:57)
[2022-10-17] MEDS: DOCUSATE SODIUM 250 MG CAPSULE PO SCH (07:58)
[2022-10-17] MEDS: FAMOTIDINE 20 MG TABLET PO SCH ×2 (07:58→22:04)
[2022-10-17] MEDS: POTASSIUM CHLORIDE 10 MEQ CAPSULE PO SCH (07:58)
[2022-10-17] MEDS: CLOPIDOGREL 75 MG TABLET PO SCH (07:59)
[2022-10-17] MEDS: MIDODRINE 10 MG TABLET PO SCH ×3 (07:59→18:02)
[2022-10-17] MEDS: ESCITALOPRAM 10 MG TABLET PO SCH (07:59)
[2022-10-17] MEDS: FUROSEMIDE 40 MG TABLET PO SCH (08:00)
[2022-10-17] MEDS: ASPIRIN EC 81 MG TABLET PO SCH (08:00)
[2022-10-17] MEDS: NYSTATIN CREAM 15 GM TUBE TOP SCH ×2 (08:03→22:04)
[2022-10-17] MEDS ORDERED: oxyCODONE 5 MG TABLET PO STA (08:53)
[2022-10-17] MEDS ORDERED: OXYCODONE HCL PO PRN (11:06)
[2022-10-17] MEDS ORDERED: ACETAMINOPHEN PO PRN (11:06)
[2022-10-17] MEDS ORDERED: [UNRECOGNIZED DRUG - OTHER] PO PRN (11:06)
--- NOTE | 2022-10-17 11:20 | PROVIDER PROGRESS NOTE ---
Hospitalist Cross-cover Note - Cross-Cover Note Cross-Cover Note: Pt screaming out in pain. He refuses oral Roxinol, because it causes nausea. He is asking his RN for something for pain to be scheduled and to be given q2h. I reviewed his currently ordered pain meds and he is already getting Tylenol plus Oxycodone 10 mg q6h. Tylenol cannot be given q2h. Plan: Will add Dilaudid oral, since he has break-through pain. The dose cannot be q2h, but will order it 2mg q6h, for an alternative pain med treatment for the nurses to give him.
--- NOTE | 2022-10-17 15:27 | ED Physician Documentation ---
ED Addendum - Addendum Addendum: Patient's RN called me this morning to ask for a PRN pain medication as patient was reporting continued pain despite his scheduled medications. I did give a one-time dose of oxycodone. Hospitalist service has also seen him this morning and have ordered oral Dilaudid for his breakthrough pain.Patient has opted for comfort measures.He remains boarding awaiting placement.
[2022-10-17] MEDS: traZODone 50 MG TABLET PO SCH (22:04)
[2022-10-18] MEDS: oxyCODONE 5 MG TABLET PO SCH ×4 (01:27→16:30)
[2022-10-18] MEDS: ACETAMINOPHEN 325 MG TABLET PO SCH ×4 (01:27→16:30)
[2022-10-18] MEDS: DOCUSATE SODIUM 250 MG CAPSULE PO SCH (09:50)
[2022-10-18] MEDS: ESCITALOPRAM 10 MG TABLET PO SCH (09:50)
[2022-10-18] MEDS: POTASSIUM CHLORIDE 10 MEQ CAPSULE PO SCH (09:50)
[2022-10-18] MEDS: FAMOTIDINE 20 MG TABLET PO SCH ×2 (09:50→20:21)
[2022-10-18] MEDS: MIDODRINE 10 MG TABLET PO SCH ×3 (09:50→16:30)
[2022-10-18] MEDS: ASPIRIN EC 81 MG TABLET PO SCH (09:50)
[2022-10-18] MEDS: CLOPIDOGREL 75 MG TABLET PO SCH (09:50)
--- NOTE | 2022-10-18 09:50 | ED Physician Documentation ---
ED Addendum - Addendum Addendum: 10/18/22 09:48 The patient seem to be resting comfortably and. Sleeping. was in the room. I did not interrupt them because of this. Nursing notes show they have continued with regular medications. He had as needed pain medications added yesterday by hospitalist and a one-time dose by the ER physician. Hospital staffing is continuing with rolling the patient and some wound care. Still awaiting placement. Patient is on comfort care treatment emphasis.
[2022-10-18] MEDS: NYSTATIN CREAM 15 GM TUBE TOP SCH ×2 (09:51→20:22)
[2022-10-18] MEDS: polyethylene glycoL 3350 17 GM PACKET PO SCH (09:51)
[2022-10-18] MEDS: MORPHINE SOL 10 MG/0.5 ML ORAL SYRINGE PO PRN ×2 (18:00→20:23)
[2022-10-18] MEDS: traZODone 50 MG TABLET PO SCH (20:22)
[2022-10-19] MEDS: oxyCODONE 5 MG TABLET PO SCH ×5 (00:23→23:41)
[2022-10-19] MEDS: ACETAMINOPHEN 325 MG TABLET PO SCH ×5 (00:23→23:41)
[2022-10-19] MEDS: ESCITALOPRAM 10 MG TABLET PO SCH (09:45)
[2022-10-19] MEDS: POTASSIUM CHLORIDE 10 MEQ CAPSULE PO SCH (09:45)
[2022-10-19] MEDS: MIDODRINE 10 MG TABLET PO SCH ×3 (09:45→17:50)
[2022-10-19] MEDS: DOCUSATE SODIUM 250 MG CAPSULE PO SCH (09:46)
[2022-10-19] MEDS: polyethylene glycoL 3350 17 GM PACKET PO SCH (09:46)
[2022-10-19] MEDS: CLOPIDOGREL 75 MG TABLET PO SCH (09:46)
[2022-10-19] MEDS: FAMOTIDINE 20 MG TABLET PO SCH ×2 (09:46→20:32)
[2022-10-19] MEDS: ASPIRIN EC 81 MG TABLET PO SCH (09:46)
[2022-10-19] MEDS: NYSTATIN CREAM 15 GM TUBE TOP SCH ×2 (09:48→20:33)
[2022-10-19] MEDS: FUROSEMIDE 40 MG TABLET PO SCH (09:48)
[2022-10-19] MEDS: MORPHINE SOL 10 MG/0.5 ML ORAL SYRINGE PO PRN (16:36)
[2022-10-19] MEDS: traZODone 50 MG TABLET PO SCH (20:32)
[2022-10-19] MEDS: HYDROmorphone 2 MG TABLET PO PRN (20:33)
[2022-10-20] MEDS: oxyCODONE 5 MG TABLET PO SCH ×4 (05:33→23:59)
[2022-10-20] MEDS: ACETAMINOPHEN 325 MG TABLET PO SCH ×4 (05:33→23:59)
[2022-10-20] MEDS: MORPHINE SOL 10 MG/0.5 ML ORAL SYRINGE PO PRN (07:56)
[2022-10-20] MEDS: ONDANSETRON ODT 4 MG TABLET TL PRN (10:24)
[2022-10-20] MEDS: FAMOTIDINE 20 MG TABLET PO SCH ×2 (10:25→20:42)
[2022-10-20] MEDS: CLOPIDOGREL 75 MG TABLET PO SCH (10:25)
[2022-10-20] MEDS: DOCUSATE SODIUM 250 MG CAPSULE PO SCH (10:25)
[2022-10-20] MEDS: ESCITALOPRAM 10 MG TABLET PO SCH (10:25)
[2022-10-20] MEDS: MIDODRINE 10 MG TABLET PO SCH ×3 (10:26→17:49)
[2022-10-20] MEDS: POTASSIUM CHLORIDE 10 MEQ CAPSULE PO SCH (10:26)
[2022-10-20] MEDS: HYDROmorphone 2 MG TABLET PO PRN ×2 (10:26→20:44)
[2022-10-20] MEDS: polyethylene glycoL 3350 17 GM PACKET PO SCH (10:26)
[2022-10-20] MEDS: NYSTATIN CREAM 15 GM TUBE TOP SCH ×2 (10:26→20:42)
[2022-10-20] MEDS: ASPIRIN EC 81 MG TABLET PO SCH (10:26)
--- NOTE | 2022-10-20 11:47 | PROVIDER PROGRESS NOTE ---
Hospitalist Cross-cover Note - Cross-Cover Note Cross-Cover Note: October 20, 2022 11:45 AM He continues to remain in comfort care status. He has not changed his mind. He says he still wants to just prepare for a peaceful and for us not to do any procedures, vitals, etc. However he does get Lasix. And there are parameters with Lasix. So he does need his blood pressure checked before we give him Lasix. He is okay with that. From a pain perspective he prefers oxycodone. He thinks that the Roxanol just gives him terrible nausea and its not worth it. He is okay with Dilaudid as needed as well. He does ask if we could give him IV morphine. I explained to him that we are treating him as if he were a patient at home or in a alf. He would not be getting an intravenous solution injection there, so we will not be giving it to him at this time in intravenous form. Active Medications Acetaminophen (Acetaminophen 325 Mg Tablet) 650 mg PO Q6HR [facility] Last Admin: 10/20/22 05:33 Dose: 650 mg Aspirin (Aspirin Ec 81 Mg Tablet) 81 mg PO DAILY [facility] Last Admin: 10/20/22 10:26 Dose: 81 mg Atropine Sulfate (Atropine 1% Ophth Drops 2 Ml) 1 - 4 drops SL Q2H PRN PRN Reason: Excessive secretions Baclofen (Baclofen 10 Mg Tablet) 10 mg PO QID PRN PRN Reason: Hiccups Clopidogrel Bisulfate (Clopidogrel 75 Mg Tablet) 75 mg PO DAILY [facility] Last Admin: 10/20/22 10:25 Dose: 75 mg Diclofenac Sodium (Diclofenac Sodium 1% Gel 50 Gm Tube) 2 gm TOP QID PRN PRN Reason: PAIN Last Admin: 09/29/22 15:46 Dose: 2 gm Docusate Sodium (Docusate Sodium 250 Mg Capsule) 250 - 500 mg PO DAILY [facility] Last Admin: 10/20/22 10:25 Dose: 250 mg Escitalopram Oxalate (Escitalopram 10 Mg Tablet) 10 mg PO DAILY [facility] Last Admin: 10/20/22 10:25 Dose: 10 mg Famotidine (Famotidine 20 Mg Tablet) 40 mg PO BID [facility] Last Admin: 10/20/22 10:25 Dose: 40 mg Furosemide (Furosemide 40 Mg Tablet) 40 mg PO Q48H [facility] Last Admin: 10/19/22 09:48 Dose: Not Given Hydromorphone HCl (Hydromorphone 2 Mg Tablet) 2 mg PO Q6HR PRN PRN Reason: Severe Pain Last Admin: 10/20/22 10:26 Dose: 2 mg Loperamide HCl (Loperamide 2 Mg Capsule) 2 mg PO Q2H PRN PRN Reason: Diarrhea Midodrine (Midodrine 10 Mg Tablet) 10 mg PO TIDWM [facility] Last Admin: 10/20/22 10:26 Dose: 10 mg Mineral Oil (Min Oil/Dimethicon/Coconut Oil 92 Gm Tube) 1 applic TOP PRN PRN PRN Reason: Skin Care Last Admin: 10/10/22 06:05 Dose: 1 applic Morphine Sulfate (Morphine Elizabeth 10 Mg/0.5 Ml Oral Syringe) 10 mg PO Q2HR PRN PRN Reason: PAIN Last Admin: 10/20/22 07:56 Dose: 10 mg Multi-Ingredient Ointment (Zinc Oxide 20% Oint 30 Gm Tube) 1 applic TOP PRN PRN PRN Reason: Skin Care Last Admin: 10/12/22 11:24 Dose: 1 applic Nystatin (Nystatin Cream 15 Gm Tube) 1 applic TOP BID [facility] Last Admin: 10/20/22 10:26 Dose: 1 applic Ondansetron HCl (Ondansetron Odt 4 Mg Tablet) 4 mg TL Q6HR PRN PRN Reason: Nausea / Vomiting Last Admin: 10/20/22 10:24 Dose: 4 mg Oxycodone HCl (Oxycodone 5 Mg Tablet) 10 mg PO Q6HR [facility] Last Admin: 10/20/22 05:33 Dose: 10 mg Polyethylene Glycol (Polyethylene Glycol 3350 17 Gm Packet) 17 gm PO DAILY [facility] Last Admin: 10/20/22 10:26 Dose: Not Given Potassium Chloride (Potassium Chloride 10 Meq Capsule) 10 meq PO DAILYWM [facility] Last Admin: 10/20/22 10:26 Dose: 10 meq Trazodone HCl (Trazodone 50 Mg Tablet) 25 mg PO QPM [facility] Last Admin: 10/19/22 20:32 Dose: 25 mg Aspirin [Aspirin EC] 81 mg PO DAILY 10/21/14 Clopidogrel [Plavix] 75 mg PO DAILY 10/21/14 Diclofenac Sodium [Voltaren Arthritis Pain] 2 gm TP Q6H PRN 07/04/22 Famotidine [Pepcid] 40 mg PO BID 07/04/22 Furosemide [Lasix] 80 mg PO DAILY 09/04/22 Metoprolol Succinate 100 mg PO DAILY 09/04/22 Oxycodone HCl/Acetaminophen [Percocet 10-325 mg Tablet] 1 tab PO QID PRN 09/04/22 lisinopriL [Lisinopril] 40 mg PO DAILY 09/04/22 Vitals are being done on this patient. Temperature is 36.5. Heart rate is 63. Blood pressure 78/55. Respirations 16. 99% on room air. He continues to lay in the dark. TV is not on. Shades are closed. He does not want me to elevate the shades nor does he want me to turn on the lights. He alternates between sitting up in a chair and being careful in watching TV or being emotionally withdrawn and wanting to stay in bed. Yesterday he was b chris, today he is withdrawn. There is no labored respiration. Lungs have diminished breath sounds at the bases but are otherwise clear. Regular rate and rhythm. Abdomen is soft, hypoactive bowel sounds. Nontender. Voice is low, almost inaudible. Diffusely weak. He needs complete help with just even simple things rolling him over in the bed or sitting him up. He is unable to stand. Assessment/plan 67-year-old male who has transitioned to comfort measures only due to reduced quality of life which is in turn due to severe mobility restrictions from chronic back pain, chronic orthostatic hypotension, chronic pedal edema. Medications reviewed. Noted as above. I will stop the Roxanol drops at his request. I have declined giving him IV morphine. He does not always take ox ycodone. He did refuse to take it a few times on the and the . I have reassured him that it is available to control his pain as he requests. Oxycodone is 10 mg every 6 hours as needed, and Dilaudid is 2 mg every 6 hours as needed.
[2022-10-20] MEDS: traZODone 50 MG TABLET PO SCH (20:42)
[2022-10-21] MEDS: oxyCODONE 5 MG TABLET PO SCH ×4 (05:38→23:31)
[2022-10-21] MEDS: ACETAMINOPHEN 325 MG TABLET PO SCH ×4 (05:38→23:31)
[2022-10-21] MEDS: DOCUSATE SODIUM 250 MG CAPSULE PO SCH (10:39)
[2022-10-21] MEDS: ASPIRIN EC 81 MG TABLET PO SCH (10:39)
[2022-10-21] MEDS: FUROSEMIDE 40 MG TABLET PO SCH (10:39)
[2022-10-21] MEDS: FAMOTIDINE 20 MG TABLET PO SCH ×2 (10:39→21:42)
[2022-10-21] MEDS: MIDODRINE 10 MG TABLET PO SCH ×3 (10:39→17:03)
[2022-10-21] MEDS: CLOPIDOGREL 75 MG TABLET PO SCH (10:39)
[2022-10-21] MEDS: ESCITALOPRAM 10 MG TABLET PO SCH (10:39)
[2022-10-21] MEDS: POTASSIUM CHLORIDE 10 MEQ CAPSULE PO SCH (10:39)
[2022-10-21] MEDS: NYSTATIN CREAM 15 GM TUBE TOP SCH ×2 (10:40→20:30)
[2022-10-21] MEDS: polyethylene glycoL 3350 17 GM PACKET PO SCH (10:40)
--- NOTE | 2022-10-21 12:02 | Discharge Plan ---
"Discharge Plan for SNF / [facility] - Discharge Plan And Transition Orders Problem Reviewed?: Yes Disposition: 06 Home Health Service Condition: Poor Allergies and Adverse Reactions: Allergies Allergy/AdvReac Type Severity Reaction Status Date / Time hydrocodone bitartrate * AdvReac Unknown Verified 09/11/22 17:57 [From Vicodin] iron AdvReac Unknown Verified 09/11/22 17:57 lactose AdvReac Unknown Verified 09/11/22 17:57 Health Concerns: The patient has a past medical history of hypertension and coronary artery disease as well as intermittent atrial fibrillation. He used to live at home and over the last few years has had progressively worsening mobility due to chronic back pain. He went from using a walker to using a wheelchair and then finally an electric wheelchair. He was dependent on his frail to help him with activities of daily living. He had finally gotten to the point where he really had no ability to get out of bed and spends all his time in bed by July of this year. Trying to sit him up resulted in poor truncal stability and he would literally slumped over and out of the bed if his was not there to hold him upwards. He was admitted in July 2022 for new onset atrial fibrillation and a UTI. He has chronic peripheral leg edema, chronic anemia, and a chronically dissecting infrarenal abdominal aortic aneurysm as well as chronic nondissecting bilateral iliac artery aneurysms. He has intermittent ambition with regards to trying to improve his strength and mobility. By the time of discharge of that hospitalization July he was able to go from supine t o sitting with 1 person assist. And then able to stand to pivot. We had hoped that he would be discharged to a fdc facility for continued rehab and then ability to go home to return to his mobility status using an electric scooter. However, the patient states that he did not receive good care at the fdc facility. But this gentleman always demonstrated waxing and waning ambition to follow through with PT. He did not do well there, had new skin breakdown, and left that facility AMA. He was only home 1 day from the fdc facility when he came back to our emergency room because his legs were now infected. He developed venous stasis dermatitis from his chronic leg edema. He was weak, and he could not stand on his own. We admitted him from September 03 through September 11 and treated the venous stasis leg wounds. He had developed orthostatic hypotension and that was treated with midodrine intermittent Lasix. We again found him placement in a fdc facility for rehab. He stated that he did not want to go to a fdc facility and would rather go home with home health follow-up. Many different departments spoke to him telling him this was not a good idea. He was not strong enough to be able to even stand. And his would not be able to take care of him. Nevertheless he persisted and was discharged to home. He did not last more than a few hours when he came back to the emergency room. At this time he has no acute medical needs other than generalized weakness and his chronic medical problems. He stayed in ED status from September 11 until October 21. Skin breakdown present even before last admission was treated. Chronic leg edema was treated. Orthostatic hypotension was treated. He continues to have chronic back pain. We also had physical therapy work with him. Again, repetitive behavior of intermittent waxing and waning cooperation with them. On October 13 he had several days of completely refusing to work with PT stating that he was not wanting to do any of this anymore. I sat down with him to make sure that I understood what he was requesting and he stated that he was done living. The quality of his life has been gradually deteriorating over a few years and gotten to the point where he did not see the point in moving forward. He pointed out that even if he worked aggressively with rehab to be able to stand, to pivot, to be able to use his electric wheelchair again, he doubted he would be able to maintain that status for very long and would continue to deteriorate again very quickly. He saw no point in doing all of this work to prolong his life a minimal amount of time that was worthwhile to him. is at the bedside and was in tears but agreed and advocated for his decision. He asked to be made comfort measures and to transition him to only keeping him comfortable with regards to pain, nausea, and any discomfort. As such at this time he is being transition to a [facility]. He cannot receive hospice benefits because he is only Medicare part A. As such he is being transition with home health. Comfort measures only. His goal is not to ever return to hospital again and to have a peaceful and tranquil at his final resting place. is in agreement with this. Plan of Treatment: Comfort measures only to honor the patient's wishes for a gradual expected deterioration and eventual . No further hospitalizations, and medications will center on keeping him comfortable and pain-free. Care Goals: As stated above. Assessment: Patient varies between engaged in conversation or withdrawn. Withdrawn affect will be manifested by turning his face ways that you cannot speak to him or to throwing the sheets and blankets over his head see you cannot see him or speak to him. This is in contrast to sometimes but he sitting up, watching TV, and will be engaged in conversation. I have repeatedly asked him if this is what he wants, and he continues to state that this is what he wants. - SNF / [facility] Transition Orders Admit to (Facility): [facility] in [place] Discharge Diagnosis: 1. Adult failure to thrive 2. Chronic back pain 3. Reduced mobility 4. Chronic atrial fibrillation, intermittent 5. Orthostatic hypotension 6. Chronic pedal edema 7. Protein calorie malnutrition, moderate 8. Depressive disorder 9. Coronary artery disease 10. History of diverticulitis 11. GERD with hiatal hernia 12. Urinary retention 13. Bilateral heel ulcers 14. Sacral ulcer, healed and now with duoderm Medicare Certification Statement: I certify that [facility] is medically necessary on a continuing basis for any of the conditions for which she/he is receiving care during hospitalization. Notify PCP of admission and forward orders to primary provider for signature. Other Notification Orders: Call PCP immediately if patient develops dyspnea, chest pain/tightness or edema. House Bowel Program: Yes Additional Bowel Program Orders: If no BM after 2 days, nurse may give M.O.M. 30ml PO PRN and/or ducolax Supp 1 MN and/or JORGE LUIS 250mg P.O., and/or senna 1-2 tabs PO. On day 3 nurse may give repeat above order until residents constipation is resolved. Annual Influenza Vaccine (between Aug 01 and February 28): No Two-step PPD per [facility] [phone] or approved exception documents: No Treatments & Other Orders: Home health wound care instructions for Mitch Malika. All wounds: Dressing changes twice weekly with continuous offloading. Right heel, Left heel. Wound hygiene with water and an antimicrobial solution. Dressing with cadexomer iodine, plain foam followed by reverse football dressing for Medication Orders: PLEASE REFER TO THE DISCHARGE MEDICATION LIST. Insulin Orders?: No - Medications New Prescriptions: HYDROmorphone [Dilaudid] 2 mg PO Q6HR PRN #30 tab PRN Reason: Severe Pain oxyCODONE [Roxicodone] 10 mg PO Q6HR #30 tab Acetaminophen [Tylenol] 650 mg PO Q6HR #100 tab Ondansetron Odt [Zofran Odt] 4 mg TL Q6HR PRN #30 tab PRN Reason: Nausea / Vomiting traZODone [Desyrel] 25 mg PO QPM #30 tablet Loperamide [Imodium] 2 mg PO Q2H PRN #30 cap PRN Reason: Diarrhea Atropine 1% Ophth Drops [Isopto Atropine 1% Ophth Drops] 1 - 4 drops SL Q2H PRN #3 ml PRN Reason: Excessive secretions Furosemide [Lasix] 40 mg PO Q48H #30 tab Escitalopram [Lexapro] 10 mg PO DAILY #30 tab Baclofen [Lioresal] 10 mg PO QID PRN #100 tab PRN Reason: Hiccups Potassium Chloride [Micro-K] 10 meq PO DAILYWM #30 cap Famotidine [Pepcid] 40 mg PO BID #60 tab Clopidogrel [Plavix] 75 mg PO DAILY #30 tab Midodrine [ProAmantine] 10 mg PO TIDWM #90 tab Diclofenac Sodium [Voltaren Arthritis Pain] 2 gm TP Q6H PRN #50 gm PRN Reason: Pain - Diet Type: No added sugar Texture: Regular Liquids: Thin May have monthly special meal: Yes - Therapies | Activity Rehabilitation Potential: Maintain present ADL Functional (goal is tranquil and nonpainful ) Activity: Activity as Tolerated Weight Bearing: Other (bed bound w trapeze) Assistance Devices: Wheelchair"
[2022-10-21] MEDS: HYDROmorphone 2 MG TABLET PO PRN ×2 (16:15→21:43)
[2022-10-21] MEDS: ZINC OXIDE 20% OINT 30 GM TUBE TOP PRN (20:30)
[2022-10-21] MEDS: traZODone 50 MG TABLET PO SCH (21:42)
[2022-10-22] MEDS: ACETAMINOPHEN 325 MG TABLET PO SCH ×2 (09:02→12:01)
[2022-10-22] MEDS: oxyCODONE 5 MG TABLET PO SCH ×2 (09:02→12:00)
[2022-10-22] MEDS: FAMOTIDINE 20 MG TABLET PO SCH (09:11)
[2022-10-22] MEDS: POTASSIUM CHLORIDE 10 MEQ CAPSULE PO SCH (09:11)
[2022-10-22] MEDS: MIDODRINE 10 MG TABLET PO SCH ×2 (09:11→12:00)
[2022-10-22] MEDS: DOCUSATE SODIUM 250 MG CAPSULE PO SCH (09:11)
[2022-10-22] MEDS: CLOPIDOGREL 75 MG TABLET PO SCH (09:11)
[2022-10-22] MEDS: ASPIRIN EC 81 MG TABLET PO SCH (09:11)
[2022-10-22] MEDS: ESCITALOPRAM 10 MG TABLET PO SCH (09:12)
[2022-10-22] MEDS: polyethylene glycoL 3350 17 GM PACKET PO SCH (09:12)
[2022-10-22] MEDS: NYSTATIN CREAM 15 GM TUBE TOP SCH (09:12)
[2022-10-22] MEDS: ZINC OXIDE 20% OINT 30 GM TUBE TOP PRN (12:00)
[2022-10-22 12:12] VITALS: BP 94/66
== END 2022-10-22 14:34 | disposition home health service (06) ==
LOC: ED 17:44
DX: L89.620 Pressure ulcer of left heel, unstageable (principal); L89.152 Pressure ulcer of sacral region, stage 2; L89.893 Pressure ulcer of other site, stage 3; L89.616 Pressure-induced deep tissue damage of right heel; S51.812A Laceration without foreign body of left forearm, initial encounter; X58.XXXA Exposure to other specified factors, initial encounter; M54.9 Dorsalgia, unspecified; M79.605 Pain in left leg; M79.604 Pain in right leg; Z66 Do not resuscitate; I48.20 Chronic atrial fibrillation, unspecified; G89.29 Other chronic pain; E78.5 Hyperlipidemia, unspecified; E87.1 Hypo-osmolality and hyponatremia; F41.8 Other specified anxiety disorders; Z20.822 Contact with and (suspected) exposure to COVID-19
CPT/HCPCS: 11042; 29580; 36415; 74177; 80048; 80053; 82330; 83605; 83690; 83735; 83880; 83970; 84100; 85025; 87635; 93005; 96361; 96365; 96366; 96367; 96375; 96376; 97597; 99285; A6250; A9270; J1170; P9047; Q0162; Q9967